=== PATIENT | female | born 1940 | race Caucasian/White ===

== ENCOUNTER → 2017-03-07 | Outpatient (CLI) | payer OTHER ==
[~2017-03-07] MED LIST: ASPEC81 PO; ATOR-22 PO; LISI10TA PO
[2017-03-07 14:09] LABS: BASO % 0.2 %; BASO ABS # 0.02 K/uL (0-0.2); COMPLETE YES; EOS % 0.8 %; HEMATOCRIT 44.6 % (37-47); IG% 0.1 %; LYMPH % 25.7 %; LYMPH ABS # 2.12 K/uL (1.2-3.4); MEAN CORPUSCULAR HEMOGLOBIN 32.7 pg (25-34); MEAN CORPUSCULAR HGB CONC 32.7 g/dl (32-36); MEAN PLATELET VOLUME 10.1 fL (7.4-10.4); MONO % 9.4 %; NEUT % 63.8 %; PLATELET COUNT 241 K/uL (130-400); RED BLOOD COUNT 4.46 M/uL (4.2-5.4); WHITE BLOOD COUNT 8.26 K/uL (4.8-10.8)
[2017-03-07 14:26] LABS: ALT/SGPT 28 U/L (12-78); AST/SGOT 16 U/L (15-37); BLOOD UREA NITROGEN 29 mg/dl (7-18); BUN/CREATININE RATIO 29.4 (10-20); CALCIUM 9.2 mg/dl (8.5-10.1); CARBON DIOXIDE 32 mmol/L (21-32); CHLORIDE 110 mmol/L (98-107); CREATININE 0.97 mg/dl (0.60-1.20); GLUCOSE 99 mg/dl (70-99); POTASSIUM 4.2 mmol/L (3.5-5.1); SODIUM 145 mmol/L (136-145)
[2017-03-07 14:29] LABS: ALB/GLOB RATIO 1.1 (0.9-2); ALKALINE PHOSPHATASE 103 U/L (45-117); CHOLESTEROL 166 mg/dl (0-200); CHOLESTEROL/HDL RATIO 3.1; HDL CHOLESTEROL 54 mg/dl; LDL CHOLESTEROL CALCULATED 74 mg/dl; TRIGLYCERIDES 190 mg/dl (0-150); VERY LOW DENSITY LIPOPROT CALC 38 mg/dl
== END | disposition home or self-care (01) ==
LOC: C.LABMFLN 08:48
PROVIDERS: ATTEND Family Medicine
DX: I10 Essential (primary) hypertension (principal); E78.5 Hyperlipidemia, unspecified

== ENCOUNTER 2023-02-22 05:37 | Observation (INO) ==
--- NOTE | 2023-02-06 12:52 | PAT Medication Instructions ---
Medication Instructions Date of Service February 06, 2023 Home Medications Medication Instructions Recorded acetaminophen 325 mg tablet 650 mg PO QID PRN pain #10 tabs 03/22/21 alendronate 70 mg tablet 70 mg PO .weekly #12 tabs 10/04/21 albuterol sulfate 90 mcg/actuation 2 puff inhalation Q6H PRN 04/12/22 aerosol inhaler (Ventolin HFA) shortness of breath or wheezing #1 inhaler atorvastatin 20 mg tablet 20 mg PO HS #90 tabs 09/25/22 aspirin 81 mg tablet 81 mg PO QPM acetaminophen 325 mg tablet 650 mg PO QID PRN pain alendronate 70 mg tablet 70 mg PO .weekly albuterol sulfate 90 mcg/actuation aerosol inhaler (Ventolin HFA) 2 puff inhalation Q6H PRN shortness of breath or wheezing atorvastatin 20 mg tablet 20 mg PO HS cholecalciferol (vitamin D3) 25 mcg (1,000 unit) capsule 25 mcg PO QAM cyanocobalamin (vitamin B-12) 1,000 mcg tablet,extended release 1,000 mcg PO QAM lisinopril 10 mg tablet 20 mg PO QPM multivitamin (Daily Multi-Vitamin tablet) 1 tab PO QAM umeclidinium 62.5 mcg/actuation blister powder for inhalation (Incruse Ellipta) 1 inh inhalation QPM zinc 50 mg tablet 50 mg PO QAM Continue as directed alendronate 70 mg tablet 70 mg PO .weekly (just do not take morning of surgery) ASK your prescriber and surgeon aspirin 81 mg tablet 81 mg PO QPM DO NOT take the morning of surgery cholecalciferol (vitamin D3) 25 mcg (1,000 unit) capsule 25 mcg PO QAM cyanocobalamin (vitamin B-12) 1,000 mcg tablet,extended release 1,000 mcg PO QAM multivitamin (Daily Multi-Vitamin tablet) 1 tab PO QAM zinc 50 mg tablet 50 mg PO QAM Take morning of surgery With a small sip of water, OTHERWISE NOTHING TO EAT OR DRINK AFTER MIDNIGHT: acetaminophen 325 mg tablet 650 mg PO QID PRN pain (if needed) albuterol sulfate 90 mcg/actuation aerosol inhaler (Ventolin HFA) 2 puff inhalation Q6H PRN shortness of breath or wheezing (use if needed; please bring with you to hospital day of surgery if possible) Take evening before surgery acetaminophen 325 mg tablet 650 mg PO QID PRN pain (if needed) albuterol sulfate 90 mcg/actuation aerosol inhaler (Ventolin HFA) 2 puff inhalation Q6H PRN shortness of breath or wheezing (if needed) atorvastatin 20 mg tablet 20 mg PO HS lisinopril 10 mg tablet 20 mg PO QPM umeclidinium 62.5 mcg/actuation blister powder for inhalation (Incruse Ellipta) 1 inh inhalation QPM Other Notes If you have any questions please call us at [phone] or [phone] or [phone] or [phone]
--- NOTE | 2023-02-08 14:33 | Anesthesiology Consultation ---
Date of Service February 08, 2023 Assessment & Plan (1) Encounter for pre-operative examination: Chart Review Chart Review: Acceptable Risk for Surgery (pending PCP optimization ) and Patient seen in Pre Admission Testing -Discussed with Dr. Cervantes- due to age and comorbidities- would recommend PCP clearance due to procedure. Workload note sent to PCP- awaiting response Per PAT appt on 02/08/23, patient denies any recent travel or large group activities. Pt is vaccinated for Covid. Will leave to surgeon's discretion if preop Covid testing needed. Educated on importance of using Covid precautions one week prior to surgery Last seen by vascular surgery 07/27/22= CTA and duplex correlate and shows stable, small, residual AAA sac. Duplex correlated well with CT. No recurrent ischemic colitis symptoms. Continue aspirin. Continue Lipitor. Follow-up in 1 year with aortic duplex Teaching & Discussion Pre-Anesthesia Teaching/Discussion Notes: Instructed NPO after midnight before surgery,except medications with 15 cc of water. Medication instructions provided according to the PAT guidelines. History Surgery Operation Date: 02/22/23 10:50 Proposed Procedures p Anterior Cervical Decompression Fusion, Instrumentation C3-C4 - Teofilo Salter MD Height/Weight Height: 5 ft 3 in Weight: 72 kg Allergies Allergy/AdvReac Type Severity Reaction Status Date / Time No Known Allergies Allergy Verified 02/06/23 10:16 Medications Home Medications Medication Instructions Recorded Confirmed Last Taken aspirin 81 mg tablet 81 mg PO QPM #30 tabs 04/13/19 02/06/23 Unknown acetaminophen 325 mg tablet 650 mg PO QID PRN pain #10 tabs 03/22/21 02/06/23 Unknown alendronate 70 mg tablet 70 mg PO .weekly #12 tabs 10/04/21 02/06/23 Unknown albuterol sulfate 90 mcg/actuation 2 puff inhalation Q6H PRN 04/12/22 02/06/23 Unknown aerosol inhaler (Ventolin HFA) shortness of breath or wheezing #1 inhaler atorvastatin 20 mg tablet 20 mg PO HS #90 tabs 09/25/22 02/06/23 Unknown cholecalciferol (vitamin D3) 25 25 mcg PO QAM 02/06/23 02/06/23 Unknown mcg (1,000 unit) capsule cyanocobalamin (vitamin B-12) 1,000 mcg PO QAM 02/06/23 02/06/23 Unknown 1,000 mcg tablet,extended release lisinopril 10 mg tablet 20 mg PO QPM 02/06/23 02/06/23 Unknown multivitamin (Daily Multi-Vitamin 1 tab PO QAM 02/06/23 02/06/23 Unknown tablet) umeclidinium 62.5 mcg/actuation 1 inh inhalation QPM 02/06/23 02/06/23 Unknown blister powder for inhalation (Incruse Ellipta) zinc 50 mg tablet 50 mg PO QAM 02/06/23 02/06/23 Unknown Past Medical History Medical History (Updated 02/09/23 @ 12:51 by Trudy Horan PA-C) Abdominal aortic aneurysm (AAA) Hx- s/p repair (2018) CTA abdomen/pelvis 01/31/23- "s/p EVAR of infrarenal AAA and placement of aorto bi-iliac stent which is patent. Excluded aneurysmal sac measures approximately 3.4cm in max diameter which is stable. No evidence of endoleak" Cervical spinal stenosis COPD (chronic obstructive pulmonary disease) Breathing stable H/O chronic ulcerative colitis Occ severe abdominal pain- no current issues [place] (hard of hearing) Hyperlipidemia Hypertension Lumbar canal stenosis Osteoporosis, post-menopausal Exercise / Class Metabolic Activity III < 4 Walking/Shop/Light housework (one flight of stairs - no chest pain, mild SOB ) Past Family History Family History Mother Cerebral aneurysm Other Hypertension No family history of adverse response to anesthesia Denies family history of Ovarian cancer Prostate cancer Myocardial infarction Breast cancer Colorectal cancer Past Surgical History Surgical History History of ankle surgery right History of cervical spinal surgery denies limited ROM History of colonoscopy History of dental surgery S/P breast biopsy right S/P lumbar spine operation Status post percutaneous abdominal aortic aneurysm (AAA) repair Past Anesthesia History No Hx of Anesthesia Complications and No Family Hx of Anesthesia Complications History of PONV No Hx of Motion Sickness and History of PONV STOP BANG Total 2 Social History Smoking Status: Former smoker tobacco type: cigarettes Do You Dip or Chew Tobacco: No Smoking End Date: 2 years ago Hx Alcohol Use: No Hx Substance Use: No substance use type: does not use Review of Systems Chronic wheezing- stable/mild - usually at night secondary to COPD- improved with Incruse inhaler Occ reflex - will try Tums Patient denies chest pain, shortness of breath, dyspnea on exertion, cough, wheezing, palpitations. No hx of seizures, stroke, [place], apnea/snoring. No hx of blood clots or blood transfusions Physical Exam Vital Signs VITALS BP 120/73 P 76 TEMP 98.2 SP02 93% on RA RESP 16 Constitutional no acute distress ENMT Mouth: no TMJ clicking Thyromental Distance: > or= 3.5 Finger Breadths (4.0) Mallampati Class: II Full dentures on top and bottom Neck + limited neck extension Respiratory normal respiratory effort; no respiratory distress Auscultation: lungs clear to auscultation bilaterally; no wheezes Cardiovascular Rate/Rhythm: regular rate and regular rhythm Heart Sounds: no murmur Vessels: no carotid bruit Musculoskeletal Spine: no pain with cervical ROM Extremities: extremities normal to inspection Psychiatric Orientation: alert Lab Results Anesthesia Preop Results Results Anesthesia Widget: WBC 8.66 K/ul (4.8-10.8) 02/08/23 Hgb 14.8 g/dl (12.0-16.0) 02/08/23 Hct 44.1 % (37.0-47.0) 02/08/23 Plt 196 K/uL (130-400) 02/08/23 Na 141 mmol/L (136-145) 02/08/23 K 4.6 mmol/L (3.5-5.1) 02/08/23 Cl 104 mmol/L (98-107) 02/08/23 CO2 27 mmol/L (21-32) 02/08/23 BUN 34 mg/dl (6-23) H 02/08/23 Creat 1.13 mg/dl (0.6-1.2) 02/08/23 Glucose Level 110 mg/dl (70-99(Fasting)) H 02/08/23 PT 11.1 Seconds (9.0-12.0) 02/08/23 PTT 29.2 Seconds (21.0-31.0) 02/08/23 INR 1.0 (0.9-1.1) 02/08/23 Blood Type O Positive 02/08/23 Antibody Screen NEGATIVE 02/08/23 Testing Electrocardiogram Date: 03/31/22 Findings: + NSR @ (76 bpm) Normal EKG per cardio Chest X-Ray Date: 09/01/22 Right basilar subsegmental atelectasis, otherwise no acute cardiopulmonary process Stress Test Date: 03/07/18 Type: DSE Dobutamine stress echocardiographic examination is normal without EKG or echo evidence of inducible ischemia. No chest pain occurred during this test. MPHR 92%. No significant arrhythmias were noted. Normal HR and BP response to dobutamine infusion. No significant ST changes during peak infusion with stress EKG. Borderline concentric LVH. EF 60%. LV wall motion is normal. Grade 1 DD. Mild TR. Other Testing Abdomen/pelvis CTA 01/31/2023 = status post endovascular repair of infrarenal abdominal aortic aneurysm and placement of aorto by iliac stent which is patent. Excluded aneurysmal sac measures approximately 3.4 cm in maximal dimension which is stable. No evidence of endoleak. Stool within the distal small bowel could represent bacterial overgrowth, small bowel dyskinesia, chronic co nstipation, among others. Probable fat-containing left-sided femoral hernia, stable. Moderate coronary arterial calcification, indicating the presence of coronary artery disease. At the patient has associated symptoms recommend management as per chest pain guidelines. If patient is asymptomatic consider reviewing modifiable cardiovascular risk factors and managing as per guidelines for primary prevention. Previous identified colon wall thickening has resolved. Vascular aortic duplex 03/17/2022 = 3.3 cm x 3.3 cm aortic aneurysm sac surrounding an abdominal aortic stent graft. Patent abdominal aortic stent graft and stent graft limbs. No evidence of endoleak by color-flow duplex in the aneurysm sac COVID-19 Risk Screen Screening Information COVID-19 Screen Date: 02/08/23 Exposure 21 Days Family/Household +COVID Last 21 Days: No Exposure 10 Days Any COVID Exposure Last 10 Days: No Symptoms Last 10 Days Experienced COVID Sx Last 10 Days: No + COVID 0-90 Days COVID + in Last 0-90 Days: No Risk Plan COVID Risk Plan: No Risk Identified Patient Education COVID Preop Screening Education Complete: Yes
[2023-02-22] MEDS ORDERED: LR 15ML/HR IV SCH (06:00)
[2023-02-22] MEDS ORDERED: ceFAZolin 2000MG 2,000 MG/15 ML SYR IV SCH (06:00)
[2023-02-22] MEDS ORDERED: LR 60ML/HR IV SCH (06:00)
[2023-02-22] MEDS ORDERED: LIDOCAINE 2% MPF LOCAL 5 ML VIAL ONE (06:42)
[2023-02-22] MEDS ORDERED: ONDANSETRON INJ 2 MG/ML 2 ML VIAL ONE (06:42)
[2023-02-22] MEDS ORDERED: DEXAMETHASONE SOD INJ 4 MG/ML VIAL ONE (06:42)
[2023-02-22] MEDS ORDERED: PROPOFOL IV EMULSION 10 MG/ML 20 ML VIAL IV ONE (06:42)
[2023-02-22] MEDS ORDERED: fentaNYL citrate PF 100 MCG/2 ML VIAL ONE ×2 (06:43→11:33)
[2023-02-22] MEDS ORDERED: MIDAZOLAM HCL 1 MG/ML 2ML VIAL ONE (06:43)
--- NOTE | 2023-02-22 06:58 | History & Physical Bridge Note ---
Date of Service February 22, 2023 History & Physical Bridge Note I have examined the patient, reviewed the History & Physical and in the interval since the performance of the History & Physical I have noted the following changes of clinical significance: no changes noted
[2023-02-22] MEDS ORDERED: VANCOMYCIN HCL 1000MG/20ML VIAL ONE (07:05)
[2023-02-22] MEDS ORDERED: THROMBIN 5000 UNITS KIT ONE (07:05)
[2023-02-22] MEDS ORDERED: GELATIN SPONGE SZ 100 ONE (07:05)
[2023-02-22] MEDS ORDERED: ATROPINE SULFATE 0.1 MG/ML 10ML SYR IV PRN (08:11)
[2023-02-22] MEDS ORDERED: NALOXONE HCL 0.4 MG/1 ML VIAL/CARP IV PRN (08:11)
[2023-02-22] MEDS ORDERED: PROMETHAZINE HCL 12.5 MG in SODIUM CHLORIDE 0.9% 50 ML IV PRN ×2 (08:11→14:40)
[2023-02-22] MEDS ORDERED: ePHEDrine sulfate 50 MG/ML AMP IV PRN (08:11)
[2023-02-22] MEDS ORDERED: LABETALOL HCL IV 5 MG/ML 20ML IV PRN (08:11)
[2023-02-22] MEDS ORDERED: ONDANSETRON INJ 2 MG/ML 2 ML VIAL IV PRN (08:11)
[2023-02-22] MEDS ORDERED: FLUMAZENIL 0.1 MG/1 ML 10 ML VIAL IV PRN (08:11)
[2023-02-22] MEDS ORDERED: ESMOLOL HCL INJ 10 MG/ML 10ML VIAL IV ONE ×2 (10:17→10:52)
[2023-02-22] MEDS ORDERED: SUGAMMADEX SODIUM 200 MG/2 ML VIAL IV ONE (11:16)
--- NOTE | 2023-02-22 11:52 | Post Operative Brief Note ---
PG Immediate Post Op with CF Date of Surgery February 22, 2023 Pre & Post Diagnosis Operation Date: 02/22/23 07:15 Pre-Op Diagnosis: Cervical Spine Stenosis due to Adjacent Segement after fusion procedure Post-Op Diagnosis: Cervical Spine Stenosis due to Adjacent Segement after fusion procedure I identified the patient and participated in the time-out.: Yes Procedure Operation Date: 02/22/23 07:15 Actual Procedures p Anterior Cervical Decompression Fusion, Instrumentation C3-C4(Not Applicable) - Teofilo Salter MD Surgeon Teofilo Salter MD Credit Balance Specialist none Estimated Blood Loss 20 Findings Consistent with Post-Op Diagnosis Specimens Specimen Description: None per surgeon
[2023-02-22] MEDS: fentaNYL citrate PF 100 MCG/2 ML VIAL IV PRN ×5 (12:03→13:45)
[2023-02-22] MEDS ORDERED: PHENYLEPHRINE HCL 10 MG/ML VIAL ONE (12:03)
[2023-02-22] MEDS ORDERED: ePHEDrine sulfate 50 MG/ML SYR ONE (12:03)
[2023-02-22] MEDS ORDERED: ACETAMINOPHEN 1000 MG/100 ML IV IV ONE (12:28)
[2023-02-22] MEDS ORDERED: SODIUM CHLORIDE 0.9% 50 ML BAG ONE (12:43)
[2023-02-22] MEDS ORDERED: PROMETHAZINE HCL INJ 25 MG/ML 1 ML VIAL ONE (12:44)
[2023-02-22] MEDS ORDERED: ROCURONIUM BROMIDE 10 MG/ML 5 ML VIAL IV ONE (13:15)
--- NOTE | 2023-02-22 13:19 | Anesthesiology Progress Note ---
Date of Service February 22, 2023 Anesthesia Post Procedure Vital Signs Vital Signs: Temp Pulse Pulse Resp BP Pulse Ox O2 Del Method 02/22/23 13:15 86 19 133/84 98 Nasal Cannula 02/22/23 13:05 36 C L 98 H 16 154/76 H 98 Nasal Cannula 02/22/23 12:55 94 H 16 162/80 H 97 Nasal Cannula 02/22/23 12:45 95 H 18 155/83 H 97 Nasal Cannula 02/22/23 12:35 95 H 18 157/81 H 96 Nasal Cannula 02/22/23 12:25 93 H 23 137/105 H 96 Nasal Cannula 02/22/23 12:15 94 H 17 159/79 H 95 Nasal Cannula 02/22/23 12:05 96 H 14 140/98 95 Nasal Cannula 02/22/23 11:55 90 18 167/76 H 97 Oxymask 02/22/23 11:46 36 C L 89 19 110/67 92 Oxymask 02/22/23 06:08 Room Air 02/22/23 06:08 36.5 C 67 18 194/67 H 92 Room Air O2 Flow Rate 02/22/23 13:15 4 02/22/23 13:05 4 02/22/23 12:55 4 02/22/23 12:45 4 02/22/23 12:35 4 02/22/23 12:25 4 02/22/23 12:15 4 02/22/23 12:05 4 02/22/23 11:55 11 02/22/23 11:46 11 02/22/23 06:08 02/22/23 06:08 Transfer of Care Handoff Completed per policy Notes Mental Status: alert / awake / arousable Patient Amnestic to Procedure: Yes Nausea / Vomiting: adequately controlled Pain: adequately controlled Airway Patency, RR, SpO2: stable & adequate BP & HR: stable & adequate Hydration State: stable & adequate Anesthetic Complications: no major complications apparent
--- NOTE | 2023-02-22 13:44 | Fluoroscopy Report ---
INTRAOPERATIVE RADIOGRAPHS CLINICAL HISTORY: Cervical spinal fusion. Fluoro time: 81 seconds. Ka,r: 11.14 mGy FINDINGS: 4 spot fluoroscopic views of the cervical spine are presented. There is discectomy change a t C4-C5, C5-C6, and C6-C7. There has likely been corpectomy at C5 and C6. Orthopedic hardware is seen anteriorly extending from C3 to C7. The orthopedic hardware appears intact. IMPRESSION: Intraoperative images from cervical spinal fusion surgery as above. Electronically signed by: Talon Chatterjee M.D. 02/22/2023 1:43 PM
[2023-02-22] MEDS ORDERED: MAGNESIUM HYDROXIDE SUSP 30 ML UDC PO PRN (14:40)
[2023-02-22] MEDS ORDERED: LORazepam 0.5 MG TAB PO PRN (14:40)
[2023-02-22] MEDS ORDERED: ACETAMINOPHEN 1,000 MG/100 ML VIAL IV PRN (14:40)
[2023-02-22] MEDS ORDERED: FAMOTIDINE 20 MG TAB PO PRN (14:40)
[2023-02-22] MEDS ORDERED: RACEPINEPHRINE 2.25% NEBU SOLN 0.5 ML VIAL INH PRN (14:40)
[2023-02-22] MEDS ORDERED: DO NOT ADMINISTER PNEUMOCOCCAL VACCINE PRN (14:40)
[2023-02-22] MEDS ORDERED: dexAMETHasone 8 MG in SYRINGE 0 ML IV PRN (14:40)
[2023-02-22] MEDS ORDERED: LACTATED RINGER'S 1,000 ML IV SCH (14:40)
[2023-02-22] MEDS ORDERED: bisacodyL 10 MG SUPP PR PRN (14:40)
[2023-02-22] MEDS ORDERED: ALUMINUM/MAGNESIUM SUSP 30 ML UDC PO PRN (14:40)
[2023-02-22] MEDS ORDERED: ACETAMINOPHEN 325 MG TAB PO PRN (14:40)
[2023-02-22] MEDS ORDERED: ALBUTEROL HFA 8 GM INHALER INH PRN (14:40)
[2023-02-22] MEDS ORDERED: LORazepam 2 MG/1 ML VIAL IV PRN (14:40)
[2023-02-22] MEDS ORDERED: DO NOT ADMINISTER FLU VACCINE PRN (14:40)
[2023-02-22] MEDS ORDERED: hydrOXYzine HCl 25 MG TAB PO PRN (14:40)
[2023-02-22] MEDS ORDERED: diphenhydrAMINE Capsule 25 MG CAP PO PRN (14:40)
[2023-02-22] MEDS ORDERED: SOD PHOSPHATE/SOD BIPHOSPHATE ENEMA 132 ML BTL PR PRN (14:40)
[2023-02-22] MEDS ORDERED: HYDROmorphone INJ 1 MG/ML SYRINGE IV PRN (15:01)
--- NOTE | 2023-02-22 15:15 | Hospitalist Consultation ---
Date of Consultation February 22, 2023 Assessment & Plan (1) Status post cervical spinal fusion: H/o cervical spine stenosis s/p cervical decompression and fusion 02/22/[address] Salter - Maintain C-collar and activity per primary team - Pain control, DVT ppx per primary team - Recommend incentive spirometer q1h wa for atelectasis/pna prevention (2) COPD (chronic obstructive pulmonary disease): Chronic/stable - Resume Incruse Ellipta and PRN Albuterol inhaler - Currently on 2L nasal cannula, wean as able to keep sat between 88-92% (3) Hypertension: Chronic/stable - Continue Lisinopril 20mg daily (4) Hyperlipidemia: Chronic/stable - Continue Atorvastatin (5) Osteoporosis, post-menopausal: Chronic/stable - Continue Fosamax Plan SCDs placed to b/l LE for DVT ppx. Recommend resumption of ASA 48 hours post operatively unless otherwise directed by primary team. Above plan of care has been d/w Dr. Rodríguez who will also see and evaluate this patient. Further orders as warranted. Supervising Physician Co-Signing Physician Notes Patient seen and examined, chart reviewed, case discussed with Sanjana Arriaga PA-C and I agree with the assessment and plan as above except as otherwise noted Labs and images reviewed 82-year-old female past medical history of ischemic colitis, hypertension, COPD, dyslipidemia, AAA who presented for elective cervical decompression due to spinal stenosis. Doing well postop, remains in collar but with good sensation in her hands and feet. No chest pain, chest pressure. No shortness of breath. No acute concerns at bedside. Vision and hearing are intact. Sensation of soft touch is intact in fingers bilaterally. Radial pulse intact bilaterally. Reviewed with assessment and plan above. History of Present Illness Reason for Consultation: Medical management Requesting Physician: Dr. Salter Attending Physician: Teofilo Salter MD History of Present Illness Maude Powell is an 82 yo F with a pmhx of AAA s/p endovascular repair, ischemic colitis, HTN, COPD, and dyslipidemia who was hospitalized under Dr. Salter service for elective cervical decompression fusion due to cervical spine stenosis that failed conservative measures. Patient reports that she is doing well post operatively. She has mild neck pain at surgical site which she states is "annoying" but not intolerable. She received general anesthesia. She had an uneventful perioperative course without any immediate complications. She lives at home with her son who works but is normally independent with ADLs. She denies chest pain, dyspnea, n/v/d, f/c, headache, or gu symptoms. She denies a h/o PE, DVT, or blood dyscrasias. Hospitalists were asked to see in consult for routine post operative medical management. Allergies Allergy/AdvReac Type Severity Reaction Status Date / Time No Known Allergies Allergy Verified 02/22/23 05:59 Home Medications Medication Instructions Recorded Confirmed Type acetaminophen 325 mg tablet 650 mg PO QID PRN pain #10 tabs 03/22/21 02/22/23 Rx alendronate 70 mg tablet 70 mg PO .weekly #12 tabs 10/04/21 02/22/23 Rx albuterol sulfate 90 mcg/actuation 2 puff inhalation Q6H PRN 04/12/22 02/22/23 Rx aerosol inhaler (Ventolin HFA) shortness of breath or wheezing #1 inhaler atorvastatin 20 mg tablet 20 mg PO HS #90 tabs 09/25/22 02/22/23 Rx cholecalciferol (vitamin D3) 25 25 mcg PO QAM 02/06/23 02/22/23 History mcg (1,000 unit) capsule cyanocobalamin (vitamin B-12) 1,000 mcg PO QAM 02/06/23 02/22/23 History 1,000 mcg tablet,extended release lisinopril 10 mg tablet 20 mg PO QPM 02/06/23 02/22/23 History multivitamin (Daily Multi-Vitamin 1 tab PO QAM 02/06/23 02/22/23 History tablet) umeclidinium 62.5 mcg/actuation 1 inh inhalation QPM 02/06/23 02/22/23 History blister powder for inhalation (Incruse Ellipta) zinc 50 mg tablet 50 mg PO QAM 02/06/23 02/22/23 History oxycodone-acetaminophen 5 mg-325 1 tab PO Q6H PRN pain #20 tabs 02/23/23 Rx mg tablet tizanidine 4 mg tablet 4 mg PO BID PRN muscle spasticity 02/23/23 Rx #20 tabs Patient History Medical History (Updated 02/09/23 @ 12:51 by Trudy J. [place], PA-C) Abdominal aortic aneurysm (AAA) Hx- s/p repair (2018) CTA abdomen/pelvis 01/31/23- "s/p EVAR of infrarenal AAA and placement of aorto bi-iliac stent which is patent. Excluded aneurysmal sac measures approximately 3.4cm in max diameter which is stable. No evidence of endoleak" Cervical spinal stenosis COPD (chronic obstructive pulmonary disease) Breathing stable H/O chronic ulcerative colitis Occ severe abdominal pain- no current issues [place] (hard of hearing) Hyperlipidemia Hypertension Lumbar canal stenosis Osteoporosis, post-menopausal Surgical History (Updated 02/22/23 @ 15:29 by Sanjana Valencia PA-C) History of ankle surgery right History of cervical spinal surgery denies limited ROM History of colonoscopy History of dental surgery S/P breast biopsy right S/P lumbar spine operation Status post percutaneous abdominal aortic aneurysm (AAA) repair Family History Mother Cerebral aneurysm Other Hypertension No family history of adverse response to anesthesia Denies family history of Ovarian cancer Prostate cancer Myocardial infarction Breast cancer Colorectal cancer Social History Smoking Status: Former smoker Age Started Using Tobacco: 17; packs per day: 0.5; Second Hand Exposure: Yes (hx); Hx Alcohol Use: No Hx Substance Use: No Preferred Language: [place] Communication Ability: Effective Visual Impairment: No Limitations Hearing Ability: Normal 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 NAD. NECK: In c-collar LUNGS: Clear to auscultation bilaterally. No W/R/R. CARDIOVASCULAR: Regular rate and rhythm. No M/G/R. No JVD. EXTREMITIES: No edema. Non-tender. Peripheral pulses +2/4. Results & Data Results & Data Vital Signs (Past 12 Hours) Vital Signs Temp Pulse Pulse Pulse Resp BP Pulse Ox 02/22/23 15:00 99 H 18 95 02/22/23 14:40 02/22/23 14:40 02/22/23 14:15 94 H 18 125/77 96 02/22/23 14:00 99 H 14 115/69 95 02/22/23 13:45 100 H 20 137/66 99 02/22/23 13:30 99 H 20 142/75 H 98 02/22/23 13:15 86 19 133/84 98 02/22/23 13:05 36 C L 98 H 16 154/76 H 98 02/22/23 12:55 94 H 16 162/80 H 97 02/22/23 12:45 95 H 18 155/83 H 97 02/22/23 12:35 95 H 18 157/81 H 96 02/22/23 12:25 93 H 23 137/105 H 96 02/22/23 12:15 94 H 17 159/79 H 95 02/22/23 12:05 96 H 14 140/98 95 02/22/23 11:55 90 18 167/76 H 97 02/22/23 11:46 36 C L 89 19 110/67 92 02/22/23 06:08 02/22/23 06:08 36.5 C 67 18 194/67 H 92 Pulse Ox O2 Del Method O2 Del Method O2 Flow Rate O2 Flow Rate 02/22/23 15:00 Nasal Cannula 2 02/22/23 14:40 Nasal Cannula 2 02/22/23 14:40 92 Nasal Cannula 2 02/22/23 14:15 Nasal Cannula 2 02/22/23 14:00 Nasal Cannula 2 02/22/23 13:45 Nasal Cannula 2 02/22/23 13:30 Nasal Cannula 4 02/22/23 13:15 Nasal Cannula 4 02/22/23 13:05 Nasal Cannula 4 02/22/23 12:55 Nasal Cannula 4 02/22/23 12:45 Nasal Cannula 4 02/22/23 12:35 Nasal Cannula 4 02/22/23 12:25 Nasal Cannula 4 02/22/23 12:15 Nasal Cannula 4 02/22/23 12:05 Nasal Cannula 4 02/22/23 11:55 Oxymask 11 02/22/23 11:46 Oxymask 11 02/22/23 06:08 Room Air 02/22/23 06:08 Room Air Laboratory Results Reviewed pre-op labs from 02/08 including cbc, bmp, coags COVID and MRSA negative PG Care Time/CCT Total # of Minutes Spent Total Time Spent with Patient: Total time spent is greater than 50% in coordination of care (as documented) at patient's floor/unit and/or counseling patient: Coding Level of Care Code 27214 IN/OBS CONSULT LVL 4,60M Diagnoses Status post cervical spinal fusion Z98.1 COPD (chronic obstructive pulmonary disease) J44.9 Hypertension I10 Hyperlipidemia E78.5 Osteoporosis, post-menopausal M81.0
[2023-02-22] MEDS: ACETAMINOPHEN 500 MG TAB PO PRN (15:25)
[2023-02-22] MEDS: ceFAZolin 2000MG 2,000 MG/15 ML SYR IV SCH (17:32)
[2023-02-22] MEDS: HYDROmorphone INJ 0.5 MG/0.5 ML SYR IV PRN (20:52)
[2023-02-22] MEDS ORDERED: lisinopril 20 MG TAB PO SCH (21:00)
[2023-02-22] MEDS ORDERED: ATORVASTATIN 20 MG TAB PO SCH (21:00)
[2023-02-22] MEDS ORDERED: UMECLIDINIUM BROMIDE 62.5MCG/BLISTER 7 PUFFS/INHALER INH SCH (21:00)
[2023-02-22] MEDS ORDERED: DOCUSATE SODIUM/SENNA 50/8.6MG TAB PO SCH (21:00)
[2023-02-23] MEDS: ceFAZolin 2000MG 2,000 MG/15 ML SYR IV SCH (01:52)
[2023-02-23] MEDS: ACETAMINOPHEN 500 MG TAB PO PRN ×2 (01:52→11:52)
[2023-02-23] MEDS: HYDROmorphone INJ 0.5 MG/0.5 ML SYR IV PRN (03:05)
[2023-02-23] MEDS: POLYETHYLENE (MIRALAX) 17 GM PACK PO SCH ×2 (05:16→13:06)
--- NOTE | 2023-02-23 09:34 | Operative Report ---
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 C3-4 anterior cervical decompression 2. C3-4 anterior interbody arthrodesis 3. Placement of intervertebral device, NuVasive interlock 2 TI-c 4. Anterior fixation, 15 mm screws 5. Removal of anterior fixation from prior plate C4-C6 Patient was taken the operating room and after adequate anesthesia, was positioned on the OSI flat top table in standard position for anterior approach to the cervical spine. At the patient was secured, preprep was performed along with bringing in fluoroscopy were used this to agnel for the area of the incision followed by prepping and draping. Procedure was started with left-sided approach along the medial border the sternocleidomastoid, from here I carefully dissected down to the anterior aspect of the cervical spine in the region of C3- 4. I was then able to locate the plate, and then mobilized the tissues overlying the plate at the upper portion. The screw fixation areas were cleaned of soft tissue, I also mobilized tissue heading cephalad over C3 for the anticipated decompression procedure. Once the screws were delineated, I used screwdrivers to then remove both fixation screws without any difficulty. With t his completed I then used fluoroscopy to place the distractor pin and C3 followed by a distractor pin placed in one of the screw holes from the prior plate, and then from here began with the decompression procedure. Soft tissue overlying the area of the C3-4 disc space was mobilized, I then used a variety of instruments to begin to elevate the highly degenerated disc space. This process continued to I was able to get this disc space elevated, followed by using trials to continue with the careful mobilization. Eventually I was able to get this up to appropriate height, I then used combination of curettes and pituitaries to continue with the disc removal followed by then the high-speed bur to remove the posterior spondylosis and then decompressed down to the dura across the interspace. When I thought the decompression was completed, I then went through trials selecting a NuVasive interlock to titanium C interbody spacer/cage 7 mm x 17 x 14 mm lordotic. This was placed with demineralized bone matrix placed within the cage, and once this was checked fluoroscopically, I then went on with fixation inserting 315 mm screws 2 heading cephalad and one inferiorly through the anterior aspect of the cage for fixation. All screws had excellent purchase and were tightened down appropriately. Inspection at this time did not reveal any issues with bleeding, the operative site was dry, I placed vancomycin powder followed by then closure using 3-0 Vicryl sutures followed by benzoin and Steri-Strips. Her orthosis collar was placed, the patient was taken recovery room satisfactory condition. Surgeon Teofilo Salter MD Senior Information Systems Architect none Estimated Blood Loss 20 Findings Consistent with Post-Op Diagnosis Specimens None Description of Procedure Listed above I attest to the content of the Intraoperative Record and any orders documented therein. Any exceptions are noted below.
--- NOTE | 2023-02-23 11:19 | Hospitalist Progress Note ---
Date of Service February 23, 2023 Assessment & Plan (1) Status post cervical spinal fusion: Plan: H/o cervical spine stenosis s/p cervical decompression and fusion 02/22/[address] Salter - Maintain C-collar and activity per primary team - Pain control, DVT ppx per primary team - Discussed to continue incentive spirometer q1h wa for atelectasis/pna prevention (2) COPD (chronic obstructive pulmonary disease): Plan: Chronic/stable - Resume Incruse Ellipta and PRN Albuterol inhaler - Currently, 92% on RA (3) Hypertension: Plan: Chronic/stable - Continue Lisinopril 20mg daily (4) Hyperlipidemia: Plan: Chronic/stable - Continue Atorvastatin (5) Osteoporosis, post-menopausal: Plan: Chronic/stable - Continue Fosamax Plan Per patient possibly being discharged later today encouraged up and OOB, increase fluid intake, and good bowel regimine Admission and Anticipated Discharge Date Admission Date: February 22, 2023 Subjective Patient is sitting up in recliner with cervical collar in place. She is currently on RA and saturating in 90s. She is tolerating diet and has no pain, nausea or vomiting. She is passing flatus but no BM Review of Systems Review of Systems: denies any chest pain, SOB, dysopnea, hoarse voice, dysphagia. All othr ROS negative unless stted + above Physical Exam Constitutional: WD/WN, vitals as above Neck: cervical collar in place Respiratory: normal respiratory effort, lungs clear to auscultation Cardiovascular: Rate/Rhythm: regular rate and regular rhythm Extremities: no calf tenderness and no edema Gastrointestinal (Abdomen): normal bowel sounds, soft, nontender, no hepatosplenomegaly Psychiatric: A+Ox3, euthymic affect Results & Data Results & Data Vital Signs (Past 12 Hours) Vital Signs Temp Pulse Pulse Resp BP Pulse Ox O2 Del Method 02/23/23 11:02 36.9 C 82 20 149/77 H 92 Room Air 02/23/23 10:14 81 18 93 Nasal Cannula 02/23/23 09:06 36.3 C L 86 16 161/74 H 93 Room Air 02/23/23 07:13 72 18 94 Nasal Cannula 02/23/23 07:05 37.1 C 70 16 154/72 H 96 Nasal Cannula 02/23/23 05:35 94 Nasal Cannula 02/23/23 05:35 86 L Room Air 02/23/23 05:11 36.6 C 76 16 159/80 H 95 Room Air 02/23/23 02:20 86 16 93 Nasal Cannula 02/23/23 02:54 36.7 C 89 18 166/70 H 95 Nasal Cannula 02/23/23 01:00 36.5 C 84 16 174/77 H 97 Nasal Cannula O2 Flow Rate 02/23/23 11:02 02/23/23 10:14 1.5 02/23/23 09:06 02/23/23 07:13 0.5 02/23/23 07:05 1 02/23/23 05:35 1 02/23/23 05:35 02/23/23 05:11 02/23/23 02:20 2 02/23/23 02:54 2 02/23/23 01:00 2 PG Care Time/CCT Total # of Minutes Spent Total Time Spent with Patient: Total time spent is greater than 50% in coordination of care (as documented) at patient's floor/unit and/or counseling patient: Coding Level of Care Code 72658 SUB INP/OBS CARE 25MIN Diagnoses Status post cervical spinal fusion Z98.1 COPD (chronic obstructive pulmonary disease) J44.9 Hypertension I10 Hyperlipidemia E78.5 Osteoporosis, post-menopausal M81.0
--- NOTE | 2023-02-23 12:10 | Discharge Summary ---
Date of Service February 23, 2023 Principal Diagnosis Same as "Discharge Diagnosis" noted below under Discharge Instructions. Discharge Data Consultations 02/22/23 14:40 Consult Hospitalist Routine Procedures Performed Operation Date: 02/22/23 07:15 Actual Procedures p Anterior Cervical Decompression Fusion, Instrumentation C3-C4(Not Applicable) - Teofilo Salter MD Ordered Studies 02/22/23 FL cervical 2-3V Routine PG Care Time/CCT Total # of Minutes Spent Total Time Spent with Patient: Total time spent is greater than 50% in coordination of care (as documented) at patient's floor/unit and/or counseling patient: Discharge Plan Discharge Items Patient Disposition: Home - Self-Care Reason For Visit: Cervical Spine Stenosis due to Adjacent Segement Discharge Diagnosis: stenosis Condition on Discharge: Good Activity: Per Instructions section Lifting: No more than 5 pounds Bathing: May shower/bathe in 3 days Exercise/Sports: Wait until after follow-up appointment Weightbearing: Full weightbearing Non-emergency contact: Primary Care Provider Call non-emergency contact if: your symptoms worsen and your pain is worsening Follow-up/Referrals: Estelita Leahy MD [Primary Care Provider] - Diet: Regular Diet Texture: Easy to Chew Addtl Attending Provider Instructions: Maintain collars, may remove when needed. avoid antiinflammatory medications. Pending Studies at Discharge: No Stand-Alone Forms: My [facility] [employer], Smoking Cessation Medications and DC Order Prescriptions: New oxycodone-acetaminophen 5-325 mg tablet 1 tab PO Q6H PRN (Reason: pain) Qty: 20 0RF tizanidine 4 mg tablet 4 mg PO BID PRN (Reason: muscle spasticity) Qty: 20 0RF Continued alendronate 70 mg tablet 70 mg PO .weekly Qty: 12 3RF atorvastatin 20 mg tablet 20 mg PO HS Qty: 90 3RF acetaminophen 325 mg tablet 650 mg PO QID PRN (Reason: pain) Qty: 10 0RF albuterol sulfate [Ventolin HFA] 90 mcg/actuation HFA aerosol inhaler 2 puff INH Q6H PRN (Reason: shortness of breath or wheezing) Qty: 1 3RF multivitamin [Daily Multi-Vitamin] tablet 1 tab PO QAM cyanocobalamin (vitamin B-12) 1,000 mcg tablet extended release 1,000 mcg PO QAM lisinopril 10 mg tablet 20 mg PO QPM zinc 50 mg tablet 50 mg PO QAM cholecalciferol (vitamin D3) 25 mcg (1,000 unit) capsule 25 mcg PO QAM Incruse Ellipta 62.5 mcg/actuation blister with device 1 inh inhalation QPM Rx Instructions: replaces spiriva Discontinued aspirin 81 mg tablet 81 mg PO QPM Qty: 30 Discharge Orders: Discharge Order (Routine); Ordered 02/23/23 Ordered By: Teofilo Salter Admission Data Admit Date/Time: 02/22/23 12:16 Attending Provider: Teofilo Salter Admit Provider: Teofilo Salter Primary Care Provider: Estelita Leahy Other Providers: Alessio Burrell ; Melanie Randhawa ; Norberto Tidwell ; Washington Coley ; Brenden Stahl ; Frank Santana ; Talon Sampson ; Luann Cook ; Erin Palumbo ; Jair Tao ; Evin Parmar ; Caryl Otto ; Raulito Farrell ; Nabila Oates ; Alina Lr ; Howard Rossi ; Jamaal Beard ; Estelita Medeiros ; Melanie Villalobos ; Cuco Soler ; Anibal Lyman ; Norberto Khan ; Steffanie Larson ; Ronald Garcia ; Jared Gannon ; Sanjana Valencia ; Emiliano Harden ; Ar Rodríguez ; Eulalia Jin ; Vikas Dixon ; Omer Huerta ; Christian Batista ; Armani Dickens ; Regina Hutson ; Osiris Gates ; Washington Yanes
== END 2023-02-23 14:10 | disposition home or self-care (01) ==
LOC: ASU 05:37 → 3E 05:37

== ENCOUNTER 2024-04-15 09:22 | Observation (INO) ==
--- NOTE | 2024-03-19 15:50 | PAT Medication Instructions ---
Medication Instructions Date of Service March 19, 2024 Home Medications Medication Instructions Recorded acetaminophen 325 mg tablet 650 mg (2 x 325 mg) PO QID PRN 03/22/21 pain #10 tabs albuterol sulfate 90 mcg/actuation 2 puff inhalation Q6H PRN 04/12/22 aerosol inhaler (Ventolin HFA) shortness of breath or wheezing #1 inhaler cetirizine 10 mg capsule (Zyrtec) 10 mg PO DAILY PRN allergy 05/15/23 symptoms #30 caps atorvastatin 20 mg tablet 20 mg PO HS #90 tabs 09/25/23 gabapentin 300 mg capsule 300 mg PO DAILY #30 caps 12/11/23 levothyroxine 125 mcg tablet 125 mcg PO DAILY #30 tabs 01/02/24 gabapentin 100 mg capsule 100 mg PO .qhs #30 caps 01/18/24 lisinopril 10 mg tablet 20 mg (2 x 10 mg) PO QPM #180 tabs 03/07/24 umeclidinium 62.5 mcg/actuation 1 inh inhalation QPM #30 ea 03/11/24 blister powder for inhalation (Incruse Ellipta) acetaminophen 325 mg tablet 650 mg (2 x 325 mg) PO QID PRN albuterol sulfate 90 mcg/actuation aerosol inhaler (Ventolin HFA) 2 puff inhalation Q6H PRN cholecalciferol (vitamin D3) 25 mcg (1,000 unit) capsule 25 mcg PO QAM cyanocobalamin (vitamin B-12) 1,000 mcg tablet,extended release 1,000 mcg PO QAM multivitamin (Daily Multi-Vitamin tablet) 1 tab PO QAM zinc 50 mg tablet 50 mg PO QAM cetirizine 10 mg capsule (Zyrtec) 10 mg PO DAILY PRN atorvastatin 20 mg tablet 20 mg PO HS gabapentin 300 mg capsule 300 mg PO DAILY levothyroxine 125 mcg tablet 125 mcg PO DAILY gabapentin 100 mg capsule 100 mg PO QHS lisinopril 10 mg tablet 20 mg (2 x 10 mg) PO QPM umeclidinium 62.5 mcg/actuation blister powder for inhalation (Incruse Ellipta) 1 inh inhalation QPM Continue as directed gabapentin 300 mg capsule 300 mg PO DAILY levothyroxine 125 mcg tablet 125 mcg PO DAILY DO NOT take the morning of surgery cholecalciferol (vitamin D3) 25 mcg (1,000 unit) capsule 25 mcg PO QAM cyanocobalamin (vitamin B-12) 1,000 mcg tablet,extended release 1,000 mcg PO QAM multivitamin (Daily Multi-Vitamin tablet) 1 tab PO QAM zinc 50 mg tablet 50 mg PO QAM cetirizine 10 mg capsule (Zyrtec) 10 mg PO DAILY PRN Take morning of surgery With a small sip of water, OTHERWISE NOTHING TO EAT OR DRINK AFTER MIDNIGHT: acetaminophen 325 mg tablet 650 mg (2 x 325 mg) PO QID PRN(if needed) albuterol sulfate 90 mcg/actuation aerosol inhaler (Ventolin HFA) 2 puff inhalation Q6H PRN(use if needed; please bring with you to hospital day of surgery if possible) Take evening before surgery acetaminophen 325 mg tablet 650 mg (2 x 325 mg) PO QID PRN(if needed) albuterol sulfate 90 mcg/actuation aerosol inhaler (Ventolin HFA) 2 puff inhalation Q6H PRN(if needed) atorvastatin 20 mg tablet 20 mg PO HS gabapentin 100 mg capsule 100 mg PO QHS lisinopril 10 mg tablet 20 mg (2 x 10 mg) PO QPM umeclidinium 62.5 mcg/actuation blister powder for inhalation (Incruse Ellipta) 1 inh inhalation QPM Other Notes If you have any questions please call us at [phone] or [phone] or [phone] or [phone]
--- NOTE | 2024-03-21 13:54 | Anesthesiology Consultation ---
Date of Service March 21, 2024 Assessment & Plan (1) Encounter for pre-operative examination: Chart Review Chart Review: Acceptable Risk for Surgery and Patient seen in Pre Admission Testing Scheduled for right CTR 03/26/24 (surgeon's office informed- will leave to Dr. Ashley's discretion if patient can proceed) - Patient is NOT an OPJ candidate (currently 23 hour obs) Per PAT appt on 03/21/24, no recent illness/disease exposures, illness related symptoms, or recent illness/disease positive tests. Will leave to surgeon's discretion if preop Covid testing needed Patient last seen by vascular surgery 03/07/24= seen for follow up - surveillance of 2017 EVAR for AAA. No descending TAA, per 2023 CT. No fem/pop aneurysms, per 2019 duplex. Bilateral <50% carotid artery stenosis, per 02/2017 duplex. Stable, small, residual AAA sac. Continue daily 81 mg aspirin for AAA. Continue 20 mg Lipitor for dyslipidemia. RTC in [address] Meyer at [place] with aortic duplex completed a week prior. Anterior Cervical Discectomy and Fusion C3-4 on 02/22/23= Done under [facility] with Grade 1 view with Glidescope #3. ETT #7. Atraumatic VL x 1 Teaching & Discussion Pre-Anesthesia Teaching/Discussion Notes: Instructed NPO after midnight before surgery,except medications with 15 cc of water. Medication instructions provided according to the PAT guidelines. History Surgery Operation Date: 04/15/24 12:00 Proposed Procedures p Right Reverse Total Shoulder Arthroplasty - Venkat Ashley, Height/Weight Height: 5 ft 3 in Weight: 70.8 kg Allergies Allergy/AdvReac Type Severity Reaction Status Date / Time No Known Allergies Allergy Verified 03/19/24 14:09 Medications Home Medications Medication Instructions Recorded Confirmed Last Taken acetaminophen 325 mg tablet 650 mg (2 x 325 mg) PO QID PRN 03/22/21 03/19/24 02/21/23 21:00 pain #10 tabs albuterol sulfate 90 mcg/actuation 2 puff inhalation Q6H PRN 04/12/22 03/19/24 Unknown aerosol inhaler (Ventolin HFA) shortness of breath or wheezing #1 inhaler cholecalciferol (vitamin D3) 25 25 mcg PO QAM 02/06/23 03/19/24 02/21/23 12:00 mcg (1,000 unit) capsule cyanocobalamin (vitamin B-12) 1,000 mcg PO QAM 02/06/23 03/19/24 02/21/23 12:00 1,000 mcg tablet,extended release multivitamin (Daily Multi-Vitamin 1 tab PO QAM 02/06/23 03/19/24 02/21/23 12:00 tablet) zinc 50 mg tablet 50 mg PO QAM 02/06/23 03/19/24 02/21/23 12:00 cetirizine 10 mg capsule (Zyrtec) 10 mg PO DAILY PRN allergy 05/15/23 03/19/24 Unknown symptoms #30 caps atorvastatin 20 mg tablet 20 mg PO HS #90 tabs 09/25/23 03/19/24 Unknown gabapentin 300 mg capsule 300 mg PO DAILY #30 caps 12/11/23 03/19/24 Unknown levothyroxine 125 mcg tablet 125 mcg PO DAILY #30 tabs 01/02/24 03/19/24 Unknown gabapentin 100 mg capsule 100 mg PO .qhs #30 caps 01/18/24 03/19/24 Unknown lisinopril 10 mg tablet 20 mg (2 x 10 mg) PO QPM #180 tabs 03/07/24 03/19/24 Unknown umeclidinium 62.5 mcg/actuation 1 inh inhalation QPM #30 ea 03/11/24 03/19/24 Unknown blister powder for inhalation (Incruse Ellipta) Past Medical History Medical History Abdominal aortic aneurysm (AAA) S/p EVAR with [employer] Endurant stent graft by 03/30/18 Follows with vascular surgery [facility] Carotid stenosis, bilateral Follows with [facility] vascular surgery- 2016 duplex showed <50% stenosis to bilateral ICAs Cervical spinal stenosis COPD (chronic obstructive pulmonary disease) Breathing stable H/O chronic ulcerative colitis Occ severe abdominal pain- no current issues CIRCLE (hard of hearing) No hearing aids Hyperlipidemia Hypertension Lumbar canal stenosis Osteoporosis, post-menopausal SOBOE (shortness of breath on exertion) Thyroid carcinoma 08/2023, s/p thyroidectomy - no chemo or XRT Exercise / Class Metabolic Activity II 4-5 Yardwork/Stairs/Walk up hill (no chest pain or SOB with flat surface, short distances ambulation- uses cane ambulation ) Past Family History Family History Mother Cerebral aneurysm Other Hypertension No family history of adverse response to anesthesia Denies family history of Ovarian cancer Prostate cancer Myocardial infarction Breast cancer Colorectal cancer Past Surgical History Surgical History History of ankle surgery right History of colonoscopy History of dental surgery Hx of thyroidectomy [facility] ~12/2023 S/P breast biopsy right S/P cervical disc replacement S/P lumbar spine operation Status post cervical spinal fusion Status post percutaneous abdominal aortic aneurysm (AAA) repair Past Anesthesia History No Hx of Anesthesia Complications and No Family Hx of Anesthesia Complications History of PONV No Hx of PONV and No Hx of Motion Sickness Social History Smoking Status: Former smoker tobacco type: cigarettes Do You Dip or Chew Tobacco: No Smoking End Date: quit 2021 Hx Alcohol Use: No Hx Substance Use: No substance use type: does not use Review of Systems - Cough - chronic/intermittent stable. - Occ reflux- mild and diet dependent Patient denies chest pain, shortness of breath at rest, cough, wheezing, palpitations. No hx of seizures, stroke, CO, apnea/snoring. No hx of blood clots or blood transfusions Physical Exam Vital Signs VITALS BP 148/85 P 78 TEMP 97.7 SP02 93% RESP 16 Constitutional no acute distress ENMT Mouth: no TMJ clicking Thyromental Distance: > or= 3.5 Finger Breadths (3.5) Mallampati Class: II Full dentures on top and bottom Neck + limited neck extension (mild) Respiratory normal respiratory effort; no respiratory distress Auscultation: lungs clear to auscultation bilaterally; no wheezes Cardiovascular Rate/Rhythm: regular rate and regular rhythm Heart Sounds: no murmur Vessels: no carotid bruit Occ extra beat Musculoskeletal Spine: no pain with cervical ROM Extremities: extremities normal to inspection Psychiatric Orientation: alert Lab Results Anesthesia Preop Results Results Anesthesia Widget: WBC 8.28 K/ul (4.8-10.8) 03/21/24 Hgb 15.5 g/dl (12.0-16.0) 03/21/24 Hct 46.8 % (37.0-47.0) 03/21/24 Plt 183 K/uL (130-400) 03/21/24 Na 142 mmol/L (136-145) 03/21/24 K 4.8 mmol/L (3.5-5.1) 03/21/24 Cl 106 mmol/L (98-107) 03/21/24 CO2 29 mmol/L (21-32) 03/21/24 BUN 23 mg/dl (6-23) 03/21/24 Creat 0.98 mg/dl (0.6-1.2) 03/21/24 Glucose Level 98 mg/dl (70-99(Fasting)) 03/21/24 PT 10.9 Seconds (9.0-12.0) 03/21/24 PTT 30 Seconds (21-31) 03/21/24 INR 1.0 (0.9-1.1) 03/21/24 Blood Type O Positive 03/21/24 Antibody Screen NEGATIVE 03/21/24 Testing Electrocardiogram Date: 03/21/24 SR at 63bpm Premature atrial complexes Otherwise normal EKG per cardio Chest X-Ray Date: 03/21/24 FINDINGS: PA and lateral chest radiographs are compared to study dated 05/02/2012. The cardiomediastinal silhouette is top normal for projection noting atherosclerotic calcification of the thoracic aorta. Emphysema and chronic interstitial thickening is similar to previous. There is bibasilar scarring/atelectasis. No airspace consolidation or pleural effusion is identified. There is no pneumothorax. The skeletal structures are osteopenic. The bony thorax appears intact. Fusion hardware is noted in the lower cervical spine. Arthritic change is seen in the shoulders. Numerous calcified joint bodies are noted on the right. A stent graft is seen in the upper abdomen. IMPRESSION: Emphysematous change with no active disease in the chest. Stress Test Date: 03/07/18 Type: DSE Dobutamine stress echocardiographic examination is normal without EKG or echo evidence of inducible ischemia. No chest pain occurred during this test. MPHR 92%. No significant arrhythmias were noted. Normal HR and BP response to dobutamine infusion. No significant ST changes during peak infusion with stress EKG. Borderline concentric LVH. EF 60%. LV wall motion is normal. Grade 1 DD. Mild TR. Other Testing Vascular aortic duplex 02/27/24 = 3.4 cm by 3.4 cm aortic aneurysm sac surrounding an abdominal aortic stent graft. Patent abdominal aortic stent graft and stent graft limbs. No evidence of endoleak by color flow duplex in the aneurysm sac.
[~2024-04-15 09:22] MED LIST changes: -ASPEC81 PO; -ATOR-22 PO; +BUPIVACAINE 0.5 % 5 MG/1 ML PF 10ML VIAL ONE; -LISI10TA PO
--- NOTE | 2024-04-15 09:43 | History & Physical Bridge Note ---
Date of Service April 15, 2024 History & Physical Bridge Note I have examined the patient, reviewed the History & Physical and in the interval since the performance of the History & Physical I have noted the following changes of clinical significance: no changes noted
[2024-04-15] MEDS ORDERED: MIDAZOLAM HCL 1 MG/ML 2ML VIAL ONE (09:45)
[2024-04-15] MEDS ORDERED: PROPOFOL IV EMULSION 10 MG/ML 20 ML VIAL IV ONE (09:45)
[2024-04-15] MEDS ORDERED: fentaNYL citrate PF 100 MCG/2 ML VIAL ONE (09:45)
[2024-04-15] MEDS ORDERED: fentaNYL citrate PF 100 MCG/2 ML VIAL IV PRN (09:52)
[2024-04-15] MEDS ORDERED: ATROPINE SULFATE 0.1 MG/ML 10ML SYR IV PRN (09:52)
[2024-04-15] MEDS ORDERED: ePHEDrine sulfate 50 MG/ML AMP IV PRN (09:52)
[2024-04-15] MEDS ORDERED: ONDANSETRON INJ 2 MG/ML 2 ML VIAL IV PRN ×2 (09:52→12:05)
[2024-04-15] MEDS: ACETAMINOPHEN 500 MG TAB PO SCH ×2 (10:06→14:29)
[2024-04-15] MEDS: FAMOTIDINE 20 MG TAB PO SCH (10:06)
[2024-04-15] MEDS: GABAPENTIN 300 MG CAP PO SCH (10:06)
[2024-04-15] MEDS: LR 15ML/HR IV SCH (10:09)
[2024-04-15] MEDS: LR 60ML/HR IV SCH (10:09)
[2024-04-15] MEDS: dexAMETHasone**PF** 10 MG/ML VIAL IV SCH (10:14)
[2024-04-15] MEDS: TRANEXAMIC ACID 1,000 MG **IV Pre-op IV SCH (10:32)
[2024-04-15] MEDS: ceFAZolin 2000MG 2,000 MG/15 ML SYR IV SCH ×2 (10:43→18:01)
[2024-04-15] MEDS ORDERED: ONDANSETRON INJ 2 MG/ML 2 ML VIAL ONE (11:28)
[2024-04-15] MEDS ORDERED: PHENYLEPHRINE 100MCG/ML 10ML SYR IV ONE (11:28)
[2024-04-15] MEDS ORDERED: ePHEDrine sulfate 50 MG/5 ML SYR ONE (11:28)
[2024-04-15] MEDS: ROPIV 0.5% 246mg, Ketorolac 30mg, EPINEPHrine 0.5mg in NSS INFIL SCH (11:36)
[2024-04-15] MEDS: TRANEXAMIC ACID 1,000 MG **IV Intra-op IV SCH (11:45)
--- NOTE | 2024-04-15 11:46 | Operative Report ---
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 A tenodesis was opted. This was a separate and distinct portion of the procedure. For these reasons, a CPT code modifier 59 will be added to this case. Implants used: I used a [employer] Comprehensive reverse total shoulder arthroplasty system with a size 10 press fit micro humeral stem, a +6 offset humeral tray and a +3 retentive humeral bearing, a 25 mm baseplate with a 6.5 mm central screw and superior and inferior locking screws, and a size 36 mm eccentric glenosphere. Maude arrived at [facility] for the above procedure. She was seen in the preoperative holding area and the operative extremity was identified and signed. She was given a preoperative antibiotic, TXA, and an interscalene nerve block. She was taken back to the operating room, laid on table in supine position, and put under general anesthesia. She was then put into the beachchair position. The shoulder was then prepped and draped in sterile fashion. A timeout was done and the patient and the operative extremity was properly identified. A deltopectoral approach was used. Dissection was taken down through the fascia and the deltoid was retracted laterally and the conjoined tendon was retracted medially. The anterior shoulder was exposed. The biceps groove was opened up and the biceps tendon was examined extensively. The biceps tendon demonstrated enlargement and inflammatory changes consistent with longstanding inflammation in the context of osteoarthritis and cuff arthropathy. The long head of the biceps tendon was then tenodesed to the upper border of the pectoralis major. This was a separate and distinct portion of the procedure. The subscapularis was then directly released off the lesser tuberosity with a peel technique. The inferior capsule was released and the humeral head was dislocated. A canal finding reamer was sent down the center of the humeral canal. Sequential reaming up to a size 10 reamer was done. Off that reamer, a proximal humeral resection guide was placed. The proximal humerus was resected at 135 of inclination and 25 of retroversion. Osteophytes were then removed and the glenoid was exposed. Time was spent doing a complete capsular and labral release. The glenoid guide was then placed in the inferior aspect of the glenoid. A 3.2 mm Steinmann pin was then placed into the glenoid vault at 10 of inclination. The glenoid baseplate was then reamed. The final size 25 mm baseplate was then impacted in the place. A 6.5 mm central screw was then placed followed by superior and inferior locking screws. A 36 mm eccentric glenosphere was then impacted into place. Surrounding soft tissues were then injected with 100 cc an orthopedic pain control cocktail. The proximal humerus was then exposed. Sequential broaching of the humerus up to a size 10 broach was done. Off that broach a +6 offset and +3 retentive humeral tray was trialed. The shoulder was then reduced, brought through a full range of motion, and felt to be stable. The shoulder was then dislocated and the broach was removed. The final size 10 micro press-fit humeral stem was then impacted into place. A +3 retentive humeral bearing was then snapped onto a +6 offset humeral tray. The humeral tray was then impacted onto the humeral stem. The shoulder was once again reduced, brought through a full range of motion, and felt to be stable. Subscapularis was poor quality and unable to be repaired. A dilute betadyne lavage was then done for 3 minutes. The joint was then irrigated with normal saline solution. Hemostasis was obtained. The interval was closed with 2-0 Vicryl suture. The skin was then closed with 2-0 Vicryl and sury. A Silverlon dressing was placed and the arm was rested in a regular arm sling. She was then extubated and transferred to a hospital bed. She taken to the postanesthesia care unit in stable condition. She tolerated the procedure well. Venkat Castellano PA-C, was present for the entire procedure. He was critical for patient positioning, prepping, draping, retraction exposure, wound closure and application of sterile dressing. I attest to the content of the Intraoperative Record and any orders documented therein. Any exceptions are noted below.
[2024-04-15] MEDS ORDERED: MAGNESIUM HYDROXIDE SUSP 30 ML UDC PO PRN (12:05)
[2024-04-15] MEDS ORDERED: METOCLOPRAMIDE HCL INJ 5 MG/ML 2 ML VIAL IV PRN (12:05)
[2024-04-15] MEDS ORDERED: HYDROmorphone INJ 0.5 MG/0.5 ML SYR IV PRN (12:05)
[2024-04-15] MEDS ORDERED: oxyCODONE HCL IR 5 MG TAB (IMMEDIATE RELEASE) PO PRN (12:05)
[2024-04-15] MEDS ORDERED: NALOXONE HCL 0.4 MG/1 ML VIAL/CARP IV PRN (12:05)
[2024-04-15] MEDS ORDERED: bisacodyL 10 MG SUPP PR PRN (12:05)
--- NOTE | 2024-04-15 12:56 | XRay Report ---
XR shoulder RT min 2V routine CLINICAL HISTORY: Post shoulder surgery TECHNIQUE: 3 views of the right shoulder were obtained. Comparison: None available at the time of this dictation. FINDINGS: Patient is status post shoulder arthroplasty with expected postsurgical changes including soft tissue swelling and subcutaneous emphysema. No periarticular lucency or hardware fracture is seen. IMPRESSION: Expected postoperative appearance status post placement of shoulder arthroplasty. ACT 112: Negative or not required by law. Electronically signed by: Rivas Burgess M.D. 04/15/2024 12:55 PM
[2024-04-15] MEDS: ALBUT/IPRATROP 3MG/0.5MG NEB 3 ML VIAL ONE (14:02)
[2024-04-15] MEDS: ALBUT/IPRATROP 3MG/0.5MG NEB 3 ML VIAL NEB STA (14:02)
[2024-04-15] MEDS ORDERED: CETIRIZINE HCL 10 MG TABLET PO PRN (14:09)
[2024-04-15] MEDS ORDERED: ALBUTEROL HFA 8 GM INHALER INH PRN (14:09)
[2024-04-15] MEDS: ORTHO JOINT ANESTHETIC ONE (14:27)
[2024-04-15] MEDS: SODIUM CHLORIDE 0.9% 1,000 ML IV SCH (14:31)
--- NOTE | 2024-04-15 14:48 | Anesthesiology Progress Note ---
Date of Service April 15, 2024 Anesthesia Post Procedure Vital Signs Vital Signs: Temp Pulse Pulse Resp BP BP Pulse Ox 04/15/24 14:42 36.4 C L 98 H 18 149/77 H 91 04/15/24 13:50 35.7 C L 83 16 142/70 H 93 04/15/24 13:35 36.4 C L 90 16 135/73 92 04/15/24 13:00 80 18 143/63 H 93 04/15/24 12:50 36.3 C L 84 18 155/69 H 93 04/15/24 12:40 83 18 151/64 H 93 04/15/24 12:30 93 H 22 153/70 H 93 04/15/24 12:20 86 18 155/69 H 95 04/15/24 12:10 92 H 22 153/61 H 93 04/15/24 12:03 36 C L 92 H 18 152/74 H 96 04/15/24 09:55 36.6 C 74 21 215/84 H 93 O2 Del Method O2 Flow Rate 04/15/24 14:42 Nasal Cannula 2 04/15/24 13:50 Nasal Cannula 3 04/15/24 13:35 Nasal Cannula 3 04/15/24 13:00 Nasal Cannula 2 04/15/24 12:50 Nasal Cannula 2 04/15/24 12:40 Nasal Cannula 2 04/15/24 12:30 Nasal Cannula 2 04/15/24 12:20 Oxymask 3 04/15/24 12:10 Oxymask 3 04/15/24 12:03 Oxymask 6 04/15/24 09:55 Room Air Transfer of Care Handoff Completed per policy Notes Mental Status: alert / awake / arousable and participated in evaluation Patient Amnestic to Procedure: Yes Nausea / Vomiting: adequately controlled Pain: adequately controlled Airway Patency, RR, SpO2: stable & adequate BP & HR: stable & adequate Hydration State: stable & adequate Anesthetic Complications: no major complications apparent and Pt Satisfied with anesthetic care Notes: Patient when transferred to floor had SpO2s in mid 80's. Per nursing report, had issues with supplemental oxygen equipment when arrival to floor. With ISB and coughs, was weaned back down to NC oxygen. I also wrote for a duoneb to be given on floor. Patient responded well to this therapy as nurse stated she was in mid 90's during treatment. I had already discussed with patient and son earlier today about her needing extra oxygen overnight given her hx/o COPD and now with interscalene nerve block and phrenic nerve block in the ipsilateral side. Also told them I would put her on continuous pulse oximetry, which was ordered.
[2024-04-15] MEDS: UMECLIDINIUM BROMIDE 62.5MCG/BLISTER 7 PUFFS/INHALER INH SCH (21:45)
[2024-04-15] MEDS: lisinopril 20 MG TAB PO SCH (21:47)
[2024-04-15] MEDS: SENNA 8.6 MG TAB PO SCH (21:47)
[2024-04-15] MEDS: DOCUSATE SODIUM 100 MG CAP PO SCH (21:48)
[2024-04-15] MEDS: ATORVASTATIN 20 MG TAB PO SCH (21:48)
[2024-04-16] MEDS: LEVOTHYROXINE SODIUM 125 MCG TABLET PO SCH (05:00)
[2024-04-16] MEDS: dexAMETHasone 4 MG TAB PO SCH (08:02)
[2024-04-16] MEDS: MULTIVITAMIN TAB PO SCH (08:02)
--- NOTE | 2024-04-16 11:28 | Orthopedic Progress Note ---
Date of Service April 16, 2024 Assessment & Plan (1) Osteoarthritis of right shoulder: (2) Status post reverse total replacement of right shoulder: Plan 84-year-old woman POD# 1 s/p right reverse total shoulder replacement, doing well overall. Currently, no pain. Medically stable. Postoperative radiographs are well-appearing; hardware intact and well-positioned. She is neurologically intact. Plan: 1. DVT prophylaxis w/ SCDs, early ambulation. Encourage elbow, wrist, digit AROM. 2. PT/OT as tolerated. Sling on at all times, including while sleeping, but may come off to shower and dress. Follow postop instructions. 3. Pain control doing well with current pain regimen. 4. Disposition - patient wishes/prefers IRF (location near [place], [place]), pending PT/OT recommendation. 5. F/u 2-3 weeks post-op w/ orthopedics (Dr. Ashley's team), or as previously scheduled, for first post-op visit. Admission and Anticipated Discharge Date Admission Date: April 15, 2024 Subjective Patient is POD# 1 s/p right reverse total shoulder arthroplasty by Dr. Nihcole on 04/15/2024. Patient says her pain is well-controlled this morning; she actually denies pain at this time. She is having some numbness in the distal right upper extremity. Denies CP, SOB, N/V. She is attempting to go to an inpatient rehab facility, as she has no help at home. Physical Exam Physical Exam: GENERAL: AA&Ox3, NAD. Pleasant, affect is calm. Sitting in bed with sling donned to RUE, well-fitting. Appears comfortable. RESPIRATORY: Normal respiratory effort with no signs of distress. CHEST/AXILLA: Chest movement symmetrical. No deformities noted. CARDIOVASCULAR: No edema noted. SKIN: Friend, warm and dry. MS/EXTREMITY: Shoulder Silverlon dressing c/d/i. + wrist/elbow AROM. Median/Ulnar/Radial nerve distributions intact to sensory/motor. Radial pulse in tact, 2+. Results & Data Vital Signs (Past 12 Hours) Vital Signs Temp Pulse Resp BP Pulse Ox O2 Del Method O2 Flow Rate 04/16/24 11:13 36.9 C 71 16 159/66 H 94 Nasal Cannula 4 04/16/24 08:00 Nasal Cannula 4 04/16/24 07:25 36.4 C L 76 16 148/71 H Nasal Cannula 4 04/16/24 03:00 36.5 C 76 18 120/69 94 Nasal Cannula 4 Diagnostic Findings Shoulder X-Ray 04/15/24 12:05 XR shoulder RT min 2V routine CLINICAL HISTORY: Post shoulder surgery TECHNIQUE: 3 views of the right shoulder were obtained. Comparison: None available at the time of this dictation. FINDINGS: Patient is status post shoulder arthroplasty with expected postsurgical changes including soft tissue swelling and subcutaneous emphysema. No periarticular lucency or hardware fracture is seen. IMPRESSION: Expected postoperative appearance status post placement of shoulder arthroplasty. ACT 112: Negative or not required by law. Electronically signed by: Rivas Burgess M.D. 04/15/2024 12:55 PM
--- NOTE | 2024-04-16 21:32 | Hospitalist Consultation ---
Date of Consultation April 16, 2024 Assessment & Plan (1) Acute respiratory failure with hypoxia: Known history of COPD. On LAMA therapy outpatient. Does follow with pulmonology. Patient reports progressive dyspnea on exertion. May benefit from ICS initiation. Is not on home O2. Is on 4L satting 88-93. Would recommend ambulatory pulse ox prior to discharge to rehab as patient likely with progressive COPD and baseline oxygen requirement. ambulatory pulse ox continue home LAMA outpatient f/u with pulm (2) Erythema: Exam consistent with superficial phlebitis. Doppler to r/o VTE. Warm/cool compresses as needed. Likely self limiting process. f/u doppler compresses as needed (3) Status post reverse total replacement of right shoulder: POD-1. To f/u with Dr. Ashley's team outpatient. Continue current management per primary team. (4) Osteoarthritis of right shoulder: See above (5) COPD (chronic obstructive pulmonary disease): See above (6) Thrombophlebitis/phlebitis, superficial: Supervising Physician Co-Signing Physician Notes Patient seen and examined, chart reviewed, case discussed with Dr. Brown and I agree with the assessment and plan as above. Patient is s/p right reverse total shoulder arthroplasty performed by Dr. Ashley on 04/15/24. She had an IV in place - developed redness and streaking. IV was removed. No infiltration. Patient reports that her arm is overall improving. On exam - patient is resting comfortably - she is on supplemental O2 at 4L/min with continuous pulse oximetry at bedside - variable waveform, saturations seem to be 93-94% Skin - redness to LUE which extends into the axilla, no tenderness, no crepitus/bullae or induration HEENT - MMM, Neck supple Heart - +S1/S2, regular Lungs- CTA Abd - +BS, soft, NT/ND Ext - RUE in sling, NV intact Labs and images reviewed Assessment/plan LUE redness appears to be superficial thrombophlebitis, possible reaction from prior infusion. No DVT identified. Symptoms are improving -Continue supportive care Hypoxia - patient requiring supplemental O2. Does not wear oxygen at home -Check CXR -Monitor - check 2 step Remainder as above History of Present Illness Reason for Consultation: left arm streaking Requesting Physician: Frank Christensen PA-C Attending Physician: Venkat Ashley DO History of Present Illness 84 y/o female admitted for right shoulder replacement with Dr. Ashley 04/15. Now POD1 and doing well. Hospitalist service consulted for evaluation of left arm streaking. Patient seen at bedside. Describes area as feeling like a "brush burn" no pain, fevers, warmth, CP, or SOB, nausea, abdominal pain, etc. Patient is on 4L NC presently. Is not on O2 at home but does have COPD and progressive dyspnea on exertion over the last few months. Allergies Allergy/AdvReac Type Severity Reaction Status Date / Time No Known Allergies Allergy Verified 03/19/24 14:09 Home Medications Medication Instructions Recorded Confirmed Type acetaminophen 325 mg tablet 650 mg (2 x 325 mg) PO QID PRN 03/22/21 04/15/24 Rx pain #10 tabs albuterol sulfate 90 mcg/actuation 2 puff inhalation Q6H PRN 04/12/22 04/15/24 Rx aerosol inhaler (Ventolin HFA) shortness of breath or wheezing #1 inhaler cholecalciferol (vitamin D3) 25 25 mcg PO QAM 02/06/23 04/15/24 History mcg (1,000 unit) capsule cyanocobalamin (vitamin B-12) 1,000 mcg PO QAM 02/06/23 04/15/24 History 1,000 mcg tablet,extended release multivitamin (Daily Multi-Vitamin 1 tab PO QAM 02/06/23 04/15/24 History tablet) cetirizine 10 mg capsule (Zyrtec) 10 mg PO DAILY PRN allergy 05/15/23 04/15/24 Rx symptoms #30 caps atorvastatin 20 mg tablet 20 mg PO HS #90 tabs 09/25/23 04/15/24 Rx levothyroxine 125 mcg tablet 125 mcg PO DAILY #30 tabs 01/02/24 04/15/24 Rx lisinopril 10 mg tablet 20 mg (2 x 10 mg) PO QPM #180 tabs 03/07/24 04/15/24 Rx umeclidinium 62.5 mcg/actuation 1 inh inhalation QPM #30 ea 03/11/24 04/15/24 Rx blister powder for inhalation (Incruse Ellipta) cefadroxil 500 mg capsule 500 mg PO BID 10 days #20 caps 04/15/24 Rx tramadol 50 mg tablet 50 mg PO Q6H PRN pain #30 tabs 04/15/24 Rx Patient History Medical History (Updated 04/16/24 @ 22:07 by Isela Brown MD) Carpal tunnel syndrome, right SOBOE (shortness of breath on exertion) Cervical spinal stenosis [place] (hard of hearing) No hearing aids Abdominal aortic aneurysm (AAA) S/p EVAR with [employer]onic Endurant stent graft by 03/30/18 Follows with vascular surgery [facility] Surgical History (Updated 04/15/24 @ 13:08 by Venkat Ashley DO) Hx of thyroidectomy [facility] ~12/2023 History of colonoscopy Family History Mother Cerebral aneurysm Other Hypertension No family history of adverse response to anesthesia Denies family history of Ovarian cancer Prostate cancer Myocardial infarction Breast cancer Colorectal cancer Social History Smoking Status: Former smoker Tobacco Type: Cigarettes Age Started Using Tobacco: 17; packs per day: 0.5; Smoking End Date: quit 2021; Second Hand Exposure: Yes (hx); Do You Dip or Chew Tobacco: No; Tobacco Cessation Education Requested by Patient: No Hx Alcohol Use: No Hx Substance Use: No Preferred Language: Panamanian Communication Ability: Effective Visual Impairment: No Limitations Hearing Ability: Normal Parts Counter Associate Required: No Beliefs That Will Affect Care: None marital status: / Current Living Situation: Family Current Living Situation Comment: lives w/ son current occupational status: retired Other Information That Helps Us Care for You: No Feels Safe at Home: Yes Safety Concerns: Feels Safe At This Time Childhood Exposure to Second-Hand Smoke: No caffeine: Yes (coffee, ice tea occasionally, rare soda) Dental Care, Regularly: No Physical Activity Frequency: Daily Seatbelt Use: always Sunscreen Use: No Do you think of yourself as: straight/heterosexual Assistive Devices: Cane Review of Systems Review of Systems: See HPI Physical Exam Physical Exam: Gen: well appearing patient in NAD HEENT: AT MO MMM Resp: CTAB no increased work of breathing CV: RRR no m/r/g clinically well perfused Abd: +BS non-distended MSK: no obvious deformities Skin: erythematous streaking from prior IV site, extends into the left armpit, no axillary lymphadenopathy, no tenderness to palpation/fluctuance/induration/or signs of infection Neuro: alert and oriented Psych: appropriate mood and affect Results & Data Results & Data Vital Signs (Past 12 Hours) Vital Signs Temp Pulse Resp BP Pulse Ox O2 Del Method O2 Flow Rate 04/16/24 21:23 36.6 C 73 18 181/82 H 93 Nasal Cannula 4 04/16/24 16:37 75 170/75 H 91 Nasal Cannula 2 04/16/24 15:24 36.7 C 78 16 179/84 H 93 Nasal Cannula 3 04/16/24 12:40 94 04/16/24 11:13 36.9 C 71 16 159/66 H 94 Nasal Cannula 4 Laboratory Results Impressions Shoulder X-Ray 04/15/24 12:05 XR shoulder RT min 2V routine CLINICAL HISTORY: Post shoulder surgery TECHNIQUE: 3 views of the right shoulder were obtained. Comparison: None available at the time of this dictation. FINDINGS: Patient is status post shoulder arthroplasty with expected postsurgical changes including soft tissue swelling and subcutaneous emphysema. No periarticular lucency or hardware fracture is seen. IMPRESSION: Expected postoperative appearance status post placement of shoulder ar throplasty. ACT 112: Negative or not required by law. Electronically signed by: Rivas Burgess M.D. 04/15/2024 12:55 PM Extremity Venous Study 04/16/24 21:48 Exam(s): US VENOUS LEFT UPPER EXTREMITY EXAM: US Duplex Left Upper Extremity Veins CLINICAL HISTORY: Reason for exam: r/o vte. TECHNIQUE: Real-time duplex ultrasound scan of the left upper extremity veins integrating B-mode two-dimensional vascular structure, Doppler spectral analysis, color flow Doppler imaging and compression. COMPARISON: None. FINDINGS: Deep veins: Unremarkable. No DVT in the internal jugular, subclavian, axillary, or brachial veins. The veins demonstrate normal color flow, are normally compressible, with normal phasic flow and/or augmentation response. Superficial veins: Unremarkable. No thrombus in the visualized basilic and cephalic veins. Soft tissues: No acute findings. IMPRESSION: No ultrasonographic evidence of deep venous thrombosis involving the left upper extremity. Electronically signed by: Hina Campbell MD 04/17/24 00:15 AM Resident Activity Tracking Resident Involvement: Resident Care Provided Care Provided: Adult [facility]
--- NOTE | 2024-04-17 00:16 | Ultrasound Report ---
Exam(s): US VENOUS LEFT UPPER EXTREMITY EXAM: US Duplex Left Upper Extremity Veins CLINICAL HISTORY: Reason for exam: r/o vte. TECHNIQUE: Real-time duplex ultrasound scan of the left upper extremity veins integrating B-mode two-dimensional vascular structure, Doppler spectral analysis, color flow Doppler imaging and compression. COMPARISON: None. FINDINGS: Deep veins: Unremarkable. No DVT in the internal jugular, subclavian, axillary, or brachial veins. The veins demonstrate normal color flow, are normally compressible, with normal phasic flow and/or augmentation response. Superficial veins: Unremarkable. No thrombus in the visualized basilic and cephalic veins. Soft tissues: No acute findings. IMPRESSION: No ultrasonographic evidence of deep venous thrombosis involving the left upper extremity. Electronically signed by: Hina Campbell MD 04/17/24 00:15 AM
--- NOTE | 2024-04-17 01:39 | Billing Data ---
Date of Service April 16, 2024 Coding Level of Care Code 21939 IN/OBS CONSULT LVL 3,45M
--- NOTE | 2024-04-17 07:39 | XRay Report ---
XR chest 1V portable HISTORY: hypoxia COMPARISON: Chest 03/21/2024. FINDINGS: There are low lung volumes. No pneumothorax. Trace bilateral pleural effusions. Patchy biba silar densities have progressed. There is diffuse interstitial thickening, unchanged. This is likely chronic. The heart is top normal in size. There are calcifications within the aortic knob. There is a right shoulder prosthesis. Partially visualized abdominal aortic stent. Cervical spinal fusion hardw are is noted. No evidence for pulmonary edema. IMPRESSION: Low lung volumes with interval progression of the patchy bibasilar densities and trace pleural effusi ons. This could represent atelectasis or a pneumonia. ACT 112: Negative or not required by law. Electronically signed by: Maldonado Haque M.D. 04/17/2024 7:37 AM
--- NOTE | 2024-04-17 10:20 | Hospitalist Progress Note ---
Date of Service April 17, 2024 Assessment & Plan (1) Acute respiratory failure with hypoxia: Plan: Known history of COPD. On LAMA therapy outpatient. Does follow with pulmonology. Patient reports progressive dyspnea on exertion. May benefit from ICS initiation - should follow up with outpatient pulmonology - does not need two step prior to discharge at this can be done at [facility], hopefully she is able to further wean her O2 needs during her rehab stay - CXR: low lung volumes, atelectasis vs PNA - neb now, IS, FV Patient with desaturation to 60s with ambulation --> STAT CTA chest ordered - no PE, conserns for atelceasis vs PNA RLL Will start Zosyn. continue pulmonary toilet (2) Erythema: Plan: Exam consistent with superficial phlebitis. UE Doppler confirms no DVT Warm/cool compresses as needed. Likely self limiting process. (3) Status post reverse total replacement of right shoulder: Plan: POD-1. To f/u with Dr. Ashley's team outpatient. Continue current management per primary team. (4) Osteoarthritis of right shoulder: Plan: See above (5) COPD (chronic obstructive pulmonary disease): Plan: See above (6) Thrombophlebitis/phlebitis, superficial: Plan Dispo: recommend continued inpatient stay given increasing oxygen demands Discussed with Frank baig. Daughter updated by phone Thank you for allowing us to participate in the care of this patient, please reach out with any questions or concerns. We will continue to follow Admission and Anticipated Discharge Date Admission Date: April 15, 2024 Supervising Physician Co-Signing Physician Notes Attending Attestation Chart reviewed, care plan d/w ESTELLE Simpson. I agree w/ the lamas components of her documentation. Agree with canceling d/c in light of O2 requirement/hypoxia. CTA chest findings reviewed. RLL pneumonia vs atelectasis. Agree with IV antibiotics. Pulmonary toilet. Norberto Tidwell MD Subjective Patient seen sitting up in the chair - plan is for [facility] today. she is still requiring oxygen, baseline is room air. reports chronic cough consistent with COPD Otherwise feels well Review of Systems Review of Systems: All systems reviewed & are unremarkable except as noted in Subjective Physical Exam Physical Exam: General: NAD, VS as above Resp: normal respiratory effort, diminished in bases, but no wheezing.on 4L NC CV: RRR, no murmur, Extremities: able to move fingers on surgical side. Erythema on right arm - non tender, bruise at IV site Neuro: A&O x3, Results & Data Results & Data Vital Signs (Past 12 Hours) Vital Signs Temp Pulse Resp BP Pulse Ox O2 Del Method O2 Flow Rate 04/17/24 08:07 4 04/17/24 07:58 165/85 H 04/17/24 07:56 36.6 C 68 18 152/102 H 93 Nasal Cannula 4 04/16/24 22:21 Nasal Cannula 4 Diagnostic Findings UE doppler reviewed, CXR reviewed CT chest reviewed PG Care Time/CCT Total # of Minutes Spent Total Time Spent with Patient: Total time spent is greater than 50% in coordination of care (as documented) at patient's floor/unit and/or counseling patient: Coding Level of Care Code 61305 SUB INP/OBS CARE 3/50MIN Diagnoses Acute respiratory failure with hypoxia J96.01 Erythema L53.9 Status post reverse total replacement of right shoulder Z96.611 Osteoarthritis of right shoulder M19.011 COPD (chronic obstructive pulmonary disease) J44.9 Thrombophlebitis/phlebitis, superficial I80.9
[2024-04-17] MEDS: ALBUT/IPRATROP 3MG/0.5MG NEB 3 ML VIAL NEB STA (11:26)
--- NOTE | 2024-04-17 13:25 | Orthopedic Progress Note ---
Date of Service April 17, 2024 Assessment & Plan (1) Osteoarthritis of right shoulder: (2) Status post reverse total replacement of right shoulder: Plan 84-year-old woman POD# 2 s/p right reverse total shoulder replacement, continues to do well overall. Still with no pain. Medically stable. Educated patient that her inability to actively flex at the right elbow could be due to a number of factors, to include previous history with her cervical spine, a lingering aftereffect of her preoperative nerve block, and potentially even due to the biceps component of the surgery. She is instructed to monitor this and any further concerns can be addressed at her postop clinic visit. Plan: 1. DVT prophylaxis w/ SCDs, early ambulation. Encourage elbow, wrist, digit AROM. 2. PT/OT as tolerated. Sling on at all times, including while sleeping, but may come off to shower and dress. -- follow postop instructions. 3. Pain control doing well with current pain regimen. 4. Disposition --PT/OT did recommend IRF, and patient was accepted at [facility] inpatient rehab facility, and she is due to be transferred there later today. 5. F/u 2-3 weeks post-op w/ orthopedics (Dr. Ashley's team), or as previously scheduled, for first post-op visit. Admission and Anticipated Discharge Date Admission Date: April 15, 2024 Subjective Patient is POD# 2 s/p right reverse total shoulder arthroplasty by Dr. Ashley on 04/15/2024. Patient says her pain remains well-controlled this morning. She continues w/ some numbness in the distal right upper extremity, mostly in the 1st through 3rd digits, and which she says has been present ever since she had a carpal tunnel release. She inquires as to her inability to flex her right elbow. Denies CP, SOB, N/V. She has been accepted at [facility] inpatient rehab facility, and is due to be transferred there once her son arrives to take her. Physical Exam Physical Exam: GENERAL: AA&Ox3, NAD. Pleasant, affect is calm. Sitting in bed with sling donned to RUE, well-fitting. Appears comfortable. RESPIRATORY: Normal respiratory effort with no signs of distress. CHEST/AXILLA: Chest movement symmetrical. No deformities noted. CARDIOVASCULAR: No edema noted. SKIN: [place], warm and dry. MS/EXTREMITY: Shoulder Silverlon dressing c/d/i. + wrist AROM, elbow extension. Arm out of sling briefly to check motor function -- Median/Ulnar/Radial nerve distributions intact to sensory/motor; unable to actively flex at elbow. Radial pulse intact, 2+. Results & Data Vital Signs (Past 12 Hours) Vital Signs Temp Pulse Resp BP Pulse Ox O2 Del Method O2 Flow Rate 04/17/24 13:09 36.7 C 91 H 20 160/78 H 93 Nasal Cannula 4 04/17/24 11:26 96 H 18 95 Nasal Cannula 3 04/17/24 08:07 4 04/17/24 07:58 165/85 H 04/17/24 07:56 36.6 C 68 18 152/102 H 93 Nasal Cannula 4
--- NOTE | 2024-04-17 13:47 | Discharge Summary ---
Date of Service April 17, 2024 Admission HPI Per Admitting Provider Maude is a pleasant 83-year-old female who has been dealing with chronic increasing right shoulder pain. It has been going on for years, but it has been much worse over the past few months. She has had injections of her shoulder without relief. She is having trouble sleeping at night. She is having trouble doing activities away from her body or up overhead. She presents to the office today with her son for evaluation. Admission Exam Per Admitting Provider OBJECTIVE: Appearance: This is a well-developed, well-nourished female in no apparent distress. Musculoskeletal: Physical exam of the right shoulder shows that she has about 110 degrees of forward elevation, 90 degrees of abduction, and 20 degrees of external rotation. Pain over the glenohumeral joint line. She has weakness throughout mostly secondary to pain. Imaging: X-rays obtained in our office today of the right shoulder show advanced glenohumeral arthritis with joint space narrowing and osteophyte formation. There are multiple loose bodies. MRI of the right shoulder ordered by another provider confirms the advanced arthritis. There is some high-grade partial-thickness tear in the rotator cuff and a large joint effusion with multiple loose bodies. Principal Diagnosis Same as "Discharge Diagnosis" noted below under Discharge Instructions. Discharge Exam GENERAL: AA&Ox3, NAD. Pleasant, affect is calm. Sitting in bed with sling donned to RUE, well-fitting. Appears comfortable. RESPIRATORY: Normal respiratory effort with no signs of distress. CHEST/AXILLA: Chest movement symmetrical. No deformities noted. CARDIOVASCULAR: No edema noted. SKIN: [place], warm and dry. MS/EXTREMITY: Shoulder Silverlon dressing c/d/i. + wrist and elbow AROM. Median/Ulnar/Radial nerve distributions intact to sensory/motor. Radial pulse intact, 2+ Discharge Data Allergies Allergy/AdvReac Type Severity Reaction Status Date / Time No Known Allergies Allergy Verified 03/19/24 14:09 Consultations 04/16/24 16:16 Consult Hospitalist Routine Procedures Performed Operation Date: 04/15/24 11:00 Actual Procedures p Right Reverse Total Shoulder Arthroplasty(Right) - Venkat Ashley DO Ordered Studies 04/15/24 05:00 US - OR guided needle placemen Routine 04/16/24 21:48 US venous doppler UE LT Urgent 04/17/24 11:55 CT angio chest PE protocol Stat Shoulder X-Ray 04/15/24 12:05 XR shoulder RT min 2V routine CLINICAL HISTORY: Post shoulder surgery TECHNIQUE: 3 views of the right shoulder were obtained. Comparison: None available at the time of this dictation. FINDINGS: Patient is status post shoulder arthroplasty with expected postsurgical changes including soft tissue swelling and subcutaneous emphysema. No periarticular lucency or hardware fracture is seen. IMPRESSION: Expected postoperative appearance status post placement of shoulder arthroplasty. ACT 112: Negative or not required by law. Electronically signed by: Rivas Burgess M.D. 04/15/2024 12:55 PM Extremity Venous Study 04/16/24 21:48 Exam(s): US VENOUS LEFT UPPER EXTREMITY EXAM: US Duplex Left Upper Extremity Veins CLINICAL HISTORY: Reason for exam: r/o vte. TECHNIQUE: Real-time duplex ultrasound scan of the left upper extremity veins integrating B-mode two-dimensional vascular structure, Doppler spectral analysis, color flow Doppler imaging and compression. COMPARISON: None. FINDINGS: Deep veins: Unremarkable. No DVT in the internal jugular, subclavian, axillary, or brachial veins. The veins demonstrate normal color flow, are normally compressible, with normal phasic flow and/or augmentation response. Superficial veins: Unremarkable. No thrombus in the visualized basilic and cephalic veins. Soft tissues: No acute findings. IMPRESSION: No ultrasonographic evidence of deep venous thrombosis involving the left upper extremity. Electronically signed by: Hina Campbell MD 04/17/24 00:15 AM Chest X-Ray 04/17/24 06:00 XR chest 1V portable HISTORY: hypoxia COMPARISON: Chest 03/21/2024. FINDINGS: There are low lung volumes. No pneumothorax. Trace bilateral pleural effusions. Patchy bibasilar densities have progressed. There is diffuse interstitial thickening, unchanged. This is likely chronic. The heart is top normal in size. There are calcifications within the aortic knob. There is a right shoulder prosthesis. Partially visualized abdominal aortic stent. Cervical spinal fusion hardware is noted. No evidence for pulmonary edema. IMPRESSION: Low lung volumes with interval progression of the patchy bibasilar densities and trace pleural effusions. This could represent atelectasis or a pneumonia. ACT 112: Negative or not required by law. Electronically signed by: Maldonado Haque M.D. 04/17/2024 7:37 AM Hospital Course (1) Osteoarthritis of right shoulder: (2) Status post reverse total replacement of right shoulder: On April 15, 2024 Maude arrived at [facility] operating room and underwent a right reverse total shoulder replacement without complications. Patient had general anesthesia and an interscalene/phrenic nerve block anesthetic for the procedure. Postoperatively, patient was transferred to the general orthopedic floor in stable condition and patient practiced early ambulation for DVT prophylaxis as appropriate. She did have some issues with low pulse oximetry readings and does admit to COPD due to many years of smoking; she now no longer smokes. She received DuoNeb treatments on the floor, which improved her SpO2's. She was noted to have some redness and reported "streaking" by the bedside nurse the night of postoperative day #1. This was assessed by the on-call hospitalist, who determined that it represented some superficial thrombophlebitis, possibly from infiltration at the IV site. This was checked by orthopedics on postoperative day #2, and was overall well- appearing and seemed to be resolving. No streaking was actually noted into the axilla. She had some tenderness described as "brush burn" when the area was palpated, but agreed that the area seem to look and feel better. The patient did end up staying until POD #3 due to her low pulse oximetry readings and breathing troubles, and it was determined that she has a possibility of pneumonia seen on a chest CTA from 04/17/2024. For this, the hospitalist service is placing the patient onto oral antibiotics and recommending outpatient follow- up with a men's basketball coach. Otherwise, patient's hospital course was uneventful. On postoperative day #1, #2, and #3 patient's vital signs were relatively stable and pain was well-controlled. Patient was able to participate well with physical therapy, performing the necessary ambulation and range of motion exercises. Patient was then discharged to [facility]. Patient will follow- up with orthopedics in 2 to 3 weeks for postoperative care. Plan 84-year-old woman POD# 3 s/p right reverse total shoulder replacement, continues to do well overall. Still with no pain. Breathing is improved over yesterday and medicine service is okay with the patient being discharged today with supplemental oxygen and oral antibiotics for possibility of pneumonia. Plan: 1. DVT prophylaxis w/ SCDs, early ambulation. Encourage elbow, wrist, digit AROM. 2. PT/OT as tolerated. Sling on at all times, including while sleeping, but may come off to shower and dress -- follow postop instructions. 3. Pain control doing well with current pain regimen. 4. Disposition -- to [facility] inpatient rehab facility. 5. F/u 2-3 weeks post-op w/ orthopedics (Dr. Ashley's team), or as previously scheduled, for first post-op visit. Total Time Total Time Spent Total Time Spent (In Minutes): Total Time Spent with Patient: Total time spent is greater than 50% in coordination of care (as documented) at patient's floor/unit and/or counseling patient: Discharge Plan Discharge Items Patient Disposition: Transfer Inpatient Rehab Fac Reason For Visit: Degenerative Joint Disease Right Shoulder Discharge Diagnosis: Right reverse shoulder replacement Activity: Per Instructions section Non-emergency contact: Surgeon and Survey Coordinator Call non-emergency contact if: your wound has increased redness and your wound has increased drainage Follow-up/Referrals: Guanaco Barrios PA-C [Outside Practitioners] - (Follow up after discharge from [facility] ) Janay Redding DO [Primary Care Provider] - Diet: Regular Addtl Attending Provider Instructions: Activity and Therapy Recommendations: * If you are using [facility] then therapy will be provided at your home until they feel you have accomplished all of your goals. * If you are using [facility] then Physical Therapy will be provided until they feel you are ready to start Outpatient Physical Therapy. * If you are not using home therapy then Outpatient Physical Therapy should start about 3-5 days from your day of surgery. Therapy will last about 8-12 weeks * Wear your sling for 3 weeks, unless otherwise instructed. You may remove your sling to shower and to dress, but otherwise, you should be in your sling at all times, including while sleeping * The shoulder replacement is very stable and you can use your hand while in the sling * You were shown a series of exercises in the hospital. Do these exercises daily including the exercises you were shown in physical therapy. Medications: * Narcotic You will likely be sent home from the hospital with a prescription for the narcotic pain medication that worked best throughout your stay. * Cefadroxil -take the antibiotic twice a day for 10 days to help prevent infection. * Other medications may be prescribed for specific circumstances. If you have any questions, please call the office at . * Resume previous home medications unless otherwise instructed Dressing Care: Leave the Silverlon dressing in place for 7 days. After 7 days you may remove the dressing. If the incision is not draining then you may leave the sury open to air. If there is a little bit of drainage or if the sury are getting stuck on your clothing then cover the incision with a dry dressing. The sury will be removed at your 2 week follow-up appointment. Showering: You may shower with the Silverlon dressing in place. Do not let the shower s pray hit the dressing directly. Pat the Silverlon dressing dry. If the dressing becomes wet underneath, then simply remove the dressing. Keep the incision dry until you are 7 days out from the day of surgery. After 7 days you may remove the Silverlon dressing and shower with the sury exposed. Let soapy water run over the sury and pat them dry. Do not scrub or soak the incision. Things To Watch For: * Drainage from the incision site that occurs more than one week after your surgery. * Increased redness at the incision site. * Fever above 102 degrees Fahrenheit. * Unusual chest pain or shortness of breath. * Call [facility] at with any of the above problems Follow-Up Visit: Follow-up with Dr. Ashley's PA (Venkat Castellano) 2-3 weeks after your day of surgery. He will remove your sury and answer any questions. If you have any additional questions or concerns, Dr Ashley is usually in the office at the same time and will be available An appointment was probably scheduled when you signed-up for surgery in the office. If you have any questions call More detailed instructions as well as Frequently Asked Questions were provided in a folder by our office when you signed-up for surgery. Please review these instructions when you get home. If you have any further questions or concerns, please feel free to call the office at [phone] Addtl I&C Tech Provider Instructions: Hospital medicine: Recommend follow up with outpatient pulmonology after discharge from [facility] - suspect will need escalation in her COPD therapy. doxycline and cirpo BID through 04/24 Pending Studies at Discharge: No Stand-Alone Forms: My [facility] Skilled Items Patient informed of condition?: Yes DNR: No Discharge Level of Care: Acute rehab Communicable Disease: No Discharge Prognosis: Improving Lines: None Urinary Catheter: No Medications and DC Order Prescriptions: New cefadroxil 500 mg capsule 500 mg PO BID 10 Days Qty: 20 0RF tramadol 50 mg tablet 50 mg PO Q6H PRN (Reason: pain) Qty: 30 0RF ciprofloxacin HCl 250 mg Tablet 750 mg PO Q12H 7 Days Qty: 42 0RF doxycycline hyclate 100 mg Capsule 100 mg PO BID 7 Days Qty: 14 0RF Continued atorvastatin 20 mg tablet 20 mg PO HS Qty: 90 3RF levothyroxine 125 mcg tablet 125 mcg PO DAILY Qty: 30 3RF lisinopril 10 mg tablet 20 mg PO QPM Qty: 180 3RF Incruse Ellipta 62.5 mcg/actuation blister with device 1 inh inhalation QPM Qty: 30 3RF Rx Instructions: replaces spiriva acetaminophen 325 mg tablet 650 mg PO QID PRN (Reason: pain) Qty: 10 0RF Zyrtec 10 mg capsule 10 mg PO DAILY PRN (Reason: allergy symptoms) Qty: 30 0RF albuterol sulfate [Ventolin HFA] 90 mcg/actuation HFA aerosol inhaler 2 puff INH Q6H PRN (Reason: shortness of breath or wheezing) Qty: 1 3RF multivitamin [Daily Multi-Vitamin] tablet 1 tab PO QAM cyanocobalamin (vitamin B-12) 1,000 mcg tablet extended release 1,000 mcg PO QAM cholecalciferol (vitamin D3) 25 mcg (1,000 unit) capsule 25 mcg PO QAM Discharge Orders: Discharge Order (Routine); Ordered 04/18/24 Ordered By: Frank Christensen Admission Data Admit Date/Time: 04/15/24 12:05 Attending Provider: Venkat Ashley Admit Provider: Venkat sAhley Primary Care Provider: Janay Redding Other Providers: [facility]; Norberto Tidwell
[2024-04-17] MEDS: OPTIRAY 320 125ml IV ONE (14:33)
--- NOTE | 2024-04-17 15:15 | CT Scan Report ---
CHEST CTA for PULMONARY ARTERIES CT DOSE: 949.39 mGy.cm HISTORY: PE, hypoxia, post op TECHNIQUE: Multiaxial CT images of the chest were performed following the intravenous administration of contrast to evaluate the pulmonary arteries. 3D/Maximal intensity projection images were also obta ined. Sagittal and coronal reformations were also reviewed. A dose lowering technique was utilized a dhering to the principles of ALARA. COMPARISON STUDY: None. FINDINGS: There is an old sternal fracture. Mild anterior wedging at T1 is likely chronic. Cervical s arsen fusion hardware and a right shoulder prosthesis are noted. Skin sury and soft tissue gas wit hin the right shoulder consistent with the recent postoperative change. There are old, healed right-s ided rib fractures. No acute fractures within the chest. The heart is mildly enlarged. No pleural or pericardial effusions. Calcified plaque within the normal caliber thoracic aorta. No evidence for an aortic dissection. No filling defects within the pulmonary arteries to suggest a pulmonary embolus. N o mediastinal or hilar lymphadenopathy. Normal esophagus. Limited views the upper abdomen demonstrate normal liver, spleen, left adrenal gland. Small right adrenal gland nodules favor benign adenomas. E mphysema. No pneumothorax. The central airways are patent. Bibasilar consolidation most pronounced wi thin the right lower lobe. This favors a pneumonia. Atelectasis could also have a similar appearance. No evidence for pulmonary edema. IMPRESSION: 1. No evidence for a pulmonary embolus. 2. Bibasilar consolidation most pronounced within the right lower lobe. This favors a pneumonia. Atel ectasis could also have a similar appearance. 3. Emphysema. 4. Additional findings as described above. ACT 112: Negative or not required by law. Electronically signed by: Maldonado Haque M.D. 04/17/2024 3:14 PM
[2024-04-17] MEDS: PIPERACILLIN/TAZOBACTAM 4.5 GM in DEXTROSE 5% MINI-B 100 ML IV ONE (16:18)
[2024-04-17 18:07] LABS: Est GFR (African American) 58.6 ml/min; Est GFR (Non-African American) 50.6 ml/min
[2024-04-17] MEDS ORDERED: ALBUTEROL 0.5% NEB SOLN 2.5 MG/0.5 ML VIAL NEB PRN (19:03)
[2024-04-17] MEDS: MELATONIN 3 MG TAB PO PRN (21:20)
[2024-04-17] MEDS: PIPERACILLIN/TAZOBACTAM 4.5 GM in DEXTROSE 5% MINI-B 100 ML IV SCH (22:23)
[2024-04-18 06:12] LABS: Basophils # (auto) 0.04 K/uL (0.00-0.20); Basophils % (auto) 0.4 %; Eosinophils # (auto) 0.04 K/uL (0.00-0.50); Eosinophils % (auto) 0.4 %; Hematocrit (blood only) 35.4 % (37.0-47.0); Hemoglobin 11.7 g/dl (12.0-16.0); Immature Granulocytes # (auto) 0.04 K/uL (0.01-0.20); Immature Granulocytes % (auto) 0.4 %; Lymphocytes # (auto) 1.48 K/uL (1.20-3.40); Lymphocytes % (auto) 13.8 %; Mean Corpuscular Hemoglobin 31.8 pg (25.0-34.0); Mean Corpuscular Hgb Conc 33.1 g/dL (32.0-36.0); Mean Corpuscular Volume 96.2 fL (80.0-100.0); Mean Platelet Volume 9.9 fL (9.4-12.4); Monocytes # (auto) 0.95 K/uL (0.11-0.59); Monocytes % (auto) 8.9 %; Neutrophils # (auto) 8.16 K/uL (1.40-6.50); Neutrophils % (auto) 76.1 %; Platelet Count 183 K/uL (130-400); RDW Coefficient of Variation 13.7 % (11.5-14.5); RDW Standard Deviation 48.9 fL (36.4-46.3); Red Blood Count 3.68 M/uL (4.20-5.40); White Blood Count 10.71 K/ul (4.8-10.8)
[2024-04-18 06:20] LABS: BUN Creatinine Ratio 31.6 (10-20); Calcium 7.5 mg/dl (8.6-10.3); Creatinine Clr Calc Pharmacy 43.4 ml/min; Est GFR (African American) 64.6 ml/min; Est GFR (Non-African American) 55.8 ml/min
--- NOTE | 2024-04-18 08:52 | Hospitalist Progress Note ---
Date of Service April 18, 2024 Assessment & Plan (1) Acute respiratory failure with hypoxia: Plan: Known history of COPD. On LAMA therapy outpatient. Does follow with pulmonology. Patient reports progressive dyspnea on exertion. May benefit from ICS initiation - should follow up with outpatient pulmonology - does not need two step prior to discharge at this can be done at [facility], hopefully she is able to further wean her O2 needs during her rehab stay - CXR: low lung volumes, atelectasis vs PNA - neb now, IS, FV Patient with desaturation to 60s with ambulation --> STAT CTA chest ordered - no PE, concerns for atelectasis vs PNA RLL Transition from Zosyn to PO doxycycline and ciprofloxacin BID through 04/24 continue pulmonary toilet (2) Erythema: Plan: Exam consistent with superficial phlebitis. UE Doppler confirms no DVT Warm/cool compresses as needed. Likely self limiting process. (3) Status post reverse total replacement of right shoulder: Plan: POD-1. To f/u with Dr. Ashley's team outpatient. Continue current management per primary team. (4) Osteoarthritis of right shoulder: Plan: See above (5) COPD (chronic obstructive pulmonary disease): Plan: See above - needs outpatient pulmonary follow up (6) Thrombophlebitis/phlebitis, superficial: Plan Dispo:okay to discharge to [facility] today, will need outpatient pulm follow up Thank you for allowing us to participate in the care of this patient, please reach out with any questions or concerns. We will continue to follow Admission and Anticipated Discharge Date Admission Date: April 15, 2024 Supervising Physician Co-Signing Physician Notes Attending Attestation - Chart reviewed, care plan d/w ESTELLE Simpson. I agree w/ the lamas components of her documentation. Cont antibiotics upon transfer to [facility]. Cont pulmonary toilet. Cont NC O2 and wean as tolerated. Cont inhalers. Should have pulmonary f/u post-discharge from [facility]. Norberto Tidwell MD Subjective Patient sitting up in the chair, feels much better than yesterday and reports that she feels near baseline. does get winded with walking to the bathroom but reports that happens at home. cough has decreased Review of Systems Review of Systems: All systems reviewed & are unremarkable except as noted in Subjective Physical Exam Physical Exam: General: NAD, VS as above Resp: normal respiratory effort, diminished in bases, but no wheezing.on 3L NC. Dropped to 80 when getting back to bed, but recovered CV: RRR, no murmur, Extremities: able to move fingers on surgical side. Erythema on right arm - improving Neuro: A&O x3, Results & Data Results & Data Vital Signs (Past 12 Hours) Vital Signs Temp Pulse Resp BP Pulse Ox O2 Del Method O2 Flow Rate 04/18/24 07:32 Nasal Cannula 3 04/18/24 07:30 36.7 C 76 20 150/79 H 90 Nasal Cannula 3 Laboratory Results CBC and chemistry reviewed PG Care Time/CCT Total # of Minutes Spent Total Time Spent with Patient: Total time spent is greater than 50% in coordination of care (as documented) at patient's floor/unit and/or counseling patient: Coding Level of Care Code 07169 SUB INP/OBS CARE 2/35MIN Diagnoses Acute respiratory failure with hypoxia J96.01 Erythema L53.9 Status post reverse total replacement of right shoulder Z96.611 Osteoarthritis of right shoulder M19.011 COPD (chronic obstructive pulmonary disease) J44.9 Thrombophlebitis/phlebitis, superficial I80.9
--- NOTE | 2024-04-18 09:41 | Orthopedic Progress Note ---
Date of Service April 18, 2024 Assessment & Plan (1) Osteoarthritis of right shoulder: (2) Status post reverse total replacement of right shoulder: Plan 84-year-old woman POD# 3 s/p right reverse total shoulder replacement, continues to do well overall. Still with no pain. Breathing is improved over yesterday and medicine service is okay with the patient being discharged today with supplemental oxygen and oral antibiotics for possibility of pneumonia. Plan: 1. DVT prophylaxis w/ SCDs, early ambulation. Encourage elbow, wrist, digit AROM. 2. PT/OT as tolerated. Sling on at all times, including while sleeping, but may come off to shower and dress -- follow postop instructions. 3. Pain control doing well with current pain regimen. 4. Disposition -- to [facility] inpatient rehab facility. 5. F/u 2-3 weeks post-op w/ orthopedics (Dr. Ashley's team), or as previously scheduled, for first post-op visit. Admission and Anticipated Discharge Date Admission Date: April 15, 2024 Subjective Patient is POD# 3 s/p right reverse total shoulder arthroplasty by Dr. Ashley on 04/15/2024. Pain remains well-controlled. Numbness to distal right upper extremity improving. She is able to flex the right elbow today. It seems that maybe she was actually trying to forward flex and abduct the right shoulder, which of course will take some time. Denies CP. She feels more her baseline today and her breathing is improving. She has been accepted at [facility] inpatient rehab facility, and is due to be transferred there once her son roby rrives to take her. Physical Exam Physical Exam: GENERAL: AA&Ox3, NAD. Pleasant, affect is calm. Sitting in bed with sling donned to RUE, well-fitting. Appears comfortable. RESPIRATORY: Normal respiratory effort with no signs of distress. CHEST/AXILLA: Chest movement symmetrical. No deformities noted. CARDIOVASCULAR: No edema noted. SKIN: [place], warm and dry. MS/EXTREMITY: Shoulder Silverlon dressing c/d/i. + wrist and elbow AROM. Median/Ulnar/Radial nerve distributions intact to sensory/motor. Radial pulse intact, 2+. Results & Data Vital Signs (Past 12 Hours) Vital Signs Temp Pulse Resp BP Pulse Ox O2 Del Method O2 Flow Rate 04/18/24 07:32 Nasal Cannula 3 04/18/24 07:30 36.7 C 76 20 150/79 H 90 Nasal Cannula 3
[2024-04-18] MEDS: DOXYCYCLINE HYCLATE 100 MG CAP PO SCH (10:05)
[2024-04-18] MEDS: CIPROFLOXACIN 250 MG TAB PO SCH ×2 (10:28→10:57)
== END 2024-04-18 17:05 ==
LOC: ASU 09:22 → 3E 09:22

== ENCOUNTER 2025-09-15 19:53 | Inpatient (IN) ==
[2025-09-15 21:14] LABS: Alanine Aminotransferase 37 U/L (7-52); Albumin Globulin Ratio 0.8 (0.9-2); Albumin Level 3.0 gm/dl (3.4-5.0); Alkaline Phosphatase 139 U/L (34-104); Anion Gap 10 (3-11); Bilirubin,Total 0.3 mg/dl (0.2-1.0); Blood Urea Nitrogen 41 mg/dl (6-23); Calcium 8.7 mg/dl (8.6-10.3); Carbon Dioxide 24 mmol/L (21-32); Chloride 103 mmol/L (98-107); Globulin 3.6 gm/dl (2.5-4.0); Glucose 129 mg/dl (70-99(Fasting)); Lipase 16 U/L (11-82); Potassium 4.6 mmol/L (3.5-5.1); Sodium 137 mmol/L (136-145); Total Protein 6.6 gm/dl (6.0-8.3)
[2025-09-15 21:17] LABS: Appearance Urine Turbid (Clear); Bacteria Urine Automated 4+ (None Seen); Glucose Urine UA Negative (Negative); WBC Urine Automated >50 /hpf (0-5)
[2025-09-15 21:27] LABS: Cast Urine Automated 0-2 /lpf (0-2)
[2025-09-15 21:36] LABS: Hematocrit (blood only) 34.9 % (37.0-47.0); Hemoglobin 11.4 g/dl (12.0-16.0); Immature Granulocytes # (auto) 0.08 K/uL (0.01-0.20); Immature Granulocytes % (auto) 0.6 %; Mean Corpuscular Hemoglobin 33.4 pg (25.0-34.0); Mean Corpuscular Volume 102.3 fL (80.0-100.0); Platelet Count 268 K/uL (130-400); RDW Standard Deviation 58.0 fL (36.4-46.3); Red Blood Count 3.41 M/uL (4.20-5.40); White Blood Count 14.35 K/ul (4.8-10.8)
--- NOTE | 2025-09-15 22:42 | Emergency Department Note ---
Impression & Plan UTI (urinary tract infection), Ambulatory dysfunction ED Provider Note NAME: LIO HDZ AGE: 85 SEX: F : 1940 ARRIVES VIA: Walk-In INFORMANT: Patient, ED PROVIDER(S): Percy Orozco MD CHIEF COMPLAINT: Urinary burning HPI: This is a an 85-year-old female seen for burning with urination. Patient was recently transferred to [facility] from [facility]. Patient had broken her left ankle. She notes chronic dysuria however she has had worsening over the past 1 to 2 days. Symptoms have been intermittent for months however. No fevers or chills with this. No associated confusion. Stable shortness of breath with exertion due to COPD. No nausea, vomiting, diarrhea. ROS: See above HPI for pertinent positives & negatives. A total of 10 systems reviewed and were otherwise negative. PAST MEDICAL HISTORY: See Below PAST SURGICAL HISTORY: See Below FAMILY HISTORY: See Below SOCIAL HISTORY: See Below HOME MEDICATIONS: See Below ALLERGIES: See Below VITALS: See Below PHYSICAL EXAMINATION: General: resting comfortably in no acute distress Head: Normocephalic and atraumatic Eyes: Normal inspection, extraocular muscles intact Ear, nose, throat: Normal external exam Neck: Normal range of motion Respiratory: lungs clear to auscultation bilaterally Cardiovascular: Regular rate/rhythm, no murmur GI: soft, nontender, no guarding or rebound Extremities: nontender, moves all extremities Neuro: The patient awake and alert, appropriately conversive, no focal deficits, symmetric faces Skin: Warm, dry, and intact MEDICAL DECISION MAKING: This is an 85-year-old female presenting for burning with urination. Will do screening blood work, urinalysis at this time. -Initial blood pressure at triage was fairly low however this was not reproducible on repeat blood pressure evaluations immediately upon evaluation. She was never hypotensive in the emergency department during her stay after this 1 isolated read. - Leukocytosis noted to 14.35. Hemoglobin 11.4. Creatinine increasing to 1.5. Urinalysis reveals signs of UTI at this time which are antibiotics at this time. - Family request x-ray due to possible hardware malfunction of the right ankle. They think hardware has been dislodged. Patient complains of chronic pain here. - X-ray reveals no osseous dislocation, does reveal hardware in place - Advised patient and family of patient's findings. Family request admission as the the patient was taken out of [facility] [place] by her family. - Care discussed with Sameera Valladares PA-C for hospital service under Dr. Maldonado Differential diagnosis: UTI, sepsis, ambulatory dysfunction Independent History obtained from: Daughter, son Diagnostics interpreted by me: ECG: ECG independently interpreted by me with normal sinus rhythm, rate of 77, normal ID, normal QRS, normal QTc, no ST segment elevations consistent with STEMI criteria Cardiac Monitoring: An order was placed for continuous cardiac monitoring. The monitor shows a rate of 76 with sinus rhythm. Past Med/Surg History Problem List (Updated 09/16/25 @ 12:18 by Percy Orozco MD) Ambulatory dysfunction (Acute) UTI (urinary tract infection) (Acute) Ambulatory dysfunction Ankle fracture, left (08/24/25) Acute nondisplaced fractures of the left distal fibula and medial malleolus from a fall Sepsis Recurrent UTI (urinary tract infection) Vaginal burning Condyloma acuminata Rheumatoid arthritis Thrombophlebitis/phlebitis, superficial Status post reverse total replacement of right shoulder (~04/2024) Right shoulder pain Carpal tunnel syndrome on both sides Cervical radicular pain Thyroid carcinoma 08/2023, s/p thyroidectomy - no chemo or XRT Acute respiratory failure with hypoxia Lumbar spinal stenosis due to adjacent segment disease after fusion procedure Cervical spinal stenosis due to adjacent segment disease after fusion procedure Lumbar stenosis with neurogenic claudication Low vitamin B12 level Thyroid Nodule COPD (chronic obstructive pulmonary disease) Breathing stable Carotid stenosis, bilateral (Acute) Follows with [facility] vascular surgery- 2016 duplex showed <50% stenosis to bilateral ICAs Adenomatous polyp of colon (Acute) Hyperlipidemia (Acute) Hypertension (Acute) Lumbar canal stenosis (Acute) Osteoporosis, post-menopausal (Acute) Medical History (Updated 09/16/25 @ 12:18 by Percy Orozco MD) H/O chronic ulcerative colitis Occ severe abdominal pain- no current issues Osteoarthritis of right shoulder Carpal tunnel syndrome, right SOBOE (shortness of breath on exertion) Cervical spinal stenosis [place] (hard of hearing) No hearing aids Abdominal aortic aneurysm (AAA) S/p EVAR with [employer] Endurant stent graft by 03/30/18 Follows with vascular surgery [facility] Surgical History S/P cervical disc replacement Status post cervical spinal fusion History of lumbar surgery History of ankle surgery Status post percutaneous abdominal aortic aneurysm (AAA) repair S/P lumbar spine operation H/O neck surgery H/O colonoscopy History of dental surgery S/P breast biopsy Hx of thyroidectomy History of colonoscopy Family History Mother Cerebral aneurysm Other Hypertension No family history of adverse response to anesthesia Denies family history of Ovarian cancer Prostate cancer Myocardial infarction Breast cancer Colorectal cancer Social History Smoking Status: Never smoker Tobacco Type: Cigarettes Age Started Using Tobacco: 17; Age Quit Using Tobacco: 81; packs per day: 1; Second Hand Exposure: Yes (hx); Do You Dip or Chew Tobacco: No; Hx Alcohol Use: No Hx Substance Use: No Preferred Language: [place] Communication Ability: Effective Visual Impairment: No Limitations Hearing Ability: Normal Applications Tester Required: No Beliefs That Will Affect Care: None marital status: / Current Living Situation: Family Current Living Situation Comment: lives w/ son current occupational status: retired Feels Safe at Home: Yes Childhood Exposure to Second-Hand Smoke: No caffeine: Yes (coffee, ice tea occasionally, rare soda) Dental Care, Regularly: No Physical Activity Frequency: Daily Seatbelt Use: always Sunscreen Use: No Do you think of yourself as: straight/heterosexual Assistive Devices: Cane Allergies Allergies Allergy/AdvReac Type Severity Reaction Status Date / Time No Known Allergies Allergy Verified 09/15/25 22:51 Home Meds Home Medications Medication Instructions Recorded Confirmed multivitamin (Daily Multi-Vitamin 1 tab PO QAM 02/06/23 09/15/25 tablet) folic acid 1 mg tablet 1 mg PO DAILY 12/06/24 09/15/25 cyanocobalamin (vitamin B-12) 500 mcg PO QAM 12/09/24 09/15/25 1,000 mcg tablet,extended release aspirin 81 mg tablet 81 mg PO DAILY 12/16/24 09/15/25 levothyroxine 125 mcg capsule 125 mcg PO DAILY 09/12/25 09/15/25 melatonin 3 mg tablet 3 mg PO HS PRN Sleep 09/12/25 09/15/25 methotrexate sodium 2.5 mg tablet 10 mg PO WK 09/12/25 09/15/25 tramadol 50 mg tablet 50 mg PO Q6H PRN Pain 09/12/25 09/15/25 imiquimod 5 % topical cream packet 1 applic topical 2XWK 09/15/25 09/15/25 lidocaine-prilocaine 2.5 %-2.5 % 1 applic topical DIRECTED PRN 09/15/25 09/15/25 topical cream Pain Previous Rx's Medication Instructions Recorded acetaminophen 325 mg tablet 650 mg (2 x 325 mg) PO QID PRN 03/22/21 pain #10 tabs albuterol sulfate 90 mcg/actuation 2 puff inhalation Q6H PRN 04/12/22 aerosol inhaler (Ventolin HFA) shortness of breath or wheezing #1 inhaler atorvastatin 20 mg tablet 20 mg PO HS #90 tabs 10/08/24 cholecalciferol (vitamin D3) 25 500 unit PO QAM #90 caps 12/09/24 mcg (1,000 unit) capsule umeclidinium 62.5 mcg-vilanterol 1 inh inhalation DAILY #180 ea 03/04/25 25 mcg/actuation powdr for inhalation (Anoro Ellipta) lisinopril 10 mg tablet 20 mg (2 x 10 mg) PO QPM #180 tabs 04/08/25 clobetasol 0.05 % topical cream 1 g topical DAILY #30 grams 07/16/25 Results & Data (ED) Vital Signs Vital Signs - 24 hr 09/15/25 20:05 09/15/25 20:35 09/15/25 21:30 Temperature 36.7 C Temperature Source Temporal Artery Scan Pulse Rate 102 H 96 H Pulse Rate [Apical] 81 Pulse Rhythm [Apical] Respiratory Rate 18 20 Respiratory Effort / Characteristics Non-Labored Spontaneous Non-Labored Spontaneous Respiratory Depth Normal Normal Respiratory Pattern Regular Regular Blood Pressure 71/46 L Blood Pressure [Right Arm] 139/71 Blood Pressure Mean 54 Blood Pressure Mean [Right Arm] 93 Pulse Oximetry 91 95 Oxygen Delivery Method Nasal Cannula Nasal Cannula Oxygen Flow Rate 3 3 Sepsis Recent Fever Within 48 Hours No Sepsis New/Unexplained Change in Mental Status N/A Sepsis Action Taken by Nursing No Action Required 09/15/25 22:00 09/15/25 23:00 Temperature Temperature Source Pulse Rate Pulse Rate [Apical] 87 85 Pulse Rhythm [Apical] Regular Respiratory Rate 21 21 Respiratory Effort / Characteristics Non-Labored Spontaneous Non-Labored Spontaneous Respiratory Depth Normal Normal Respiratory Pattern Regular Regular Blood Pressure Blood Pressure [Right Arm] 134/76 147/76 H Blood Pressure Mean Blood Pressure Mean [Right Arm] 95 99 Pulse Oximetry 94 93 Oxygen Delivery Method Nasal Cannula Nasal Cannula Oxygen Flow Rate 3 3 Sepsis Recent Fever Within 48 Hours Sepsis New/Unexplained Change in Mental Status Sepsis Action Taken by Nursing Laboratory Data 09/16/25 04:25 09/16/25 04: Lab Results 09/15/25 09/15/25 Range/Units 20:39 23:00 WBC 14.35 H (4.8-10.8) K/ul RBC 3.41 L (4.20-5.40) M/uL Hgb 11.4 L (12.0-16.0) g/dl Hct 34.9 L (37.0-47.0) % MCV 102.3 H (80.0-100.0) fL MCH 33.4 (25.0-34.0) pg MCHC 32.7 (32.0-36.0) g/dL RDW Std Deviation 58.0 H (36.4-46.3) fL RDW Coeff of [place] 15.8 H (11.5-14.5) % Plt Count 268 (130-400) K/uL MPV 9.4 (9.4-12.4) fL Immature Gran % (Auto) 0.6 % Neut % (Auto) 69.0 % Lymph % (Auto) 19.8 % [place] % (Auto) 9.0 % Eos % (Auto) 1.3 % Baso % (Auto) 0.3 % Neut # (Auto) 9.92 H (1.40-6.50) K/uL Lymph # (Auto) 2.84 (1.20-3.40) K/uL [place] # (Auto) 1.29 H (0.11-0.59) K/uL Eos # (Auto) 0.18 (0.00-0.50) K/uL Baso # (Auto) 0.04 (0.00-0.20) K/uL Immature Gran # (Auto) 0.08 (0.01-0.20) K/uL Sodium 137 (136-145) mmol/L Potassium 4.6 (3.5-5.1) mmol/L Chloride 103 (98-107) mmol/L Carbon Dioxide 24 (21-32) mmol/L Anion Gap 10 (3-11) BUN 41 H (6-23) mg/dl Creatinine 1.50 H (0.6-1.2) mg/dl Est Cr Clr Drug Dosing Not Reportable eGFR 34.36 BUN/Creatinine Ratio 27.3 H (10-20) Glucose 129 H (70-99(Fasting)) mg/dl Lactate 1.3 (0.4-2.0) mmol/L Calcium 8.7 (8.6-10.3) mg/dl Magnesium 1.9 (1.7-2.4) mg/dl Total Bilirubin 0.3 (0.2-1.0) mg/dl AST 15 (13-39) U/L ALT 37 (7-52) U/L Alkaline Phosphatase 139 H (34-104) U/L Troponin I High Sens 10.5 (0-14) pg/ml Total Protein 6.6 (6.0-8.3) gm/dl Albumin 3.0 L (3.4-5.0) gm/dl Globulin 3.6 (2.5-4.0) gm/dl Albumin/Globulin Ratio 0.8 L (0.9-2) Lipase 16 (11-82) U/L Urine Color Yellow Urine Appearance Turbid A (Clear) Urine pH 6.0 (4.5-7.5) Ur Specific [place] 1.016 (1.000-1.030) Urine Protein 3+ H (Negative) Urine Glucose (UA) Negative (Negative) Urine Ketones Trace H (Negative) Urine Blood 3+ H (Negative) Urine Nitrite Negative (Negative) Urine Bilirubin Negative (Negative) Urine Urobilinogen Negative (Negative) Ur Leukocyte Esterase 3+ H (Negative) Urine WBC (Auto) >50 H (0-5) /hpf Urine RBC (Auto) 11-20 H (0-2) /hpf U Hyaline Cast (Auto) 0-2 (0-2) /lpf U Epithel Cells (Auto) 3-5 H (0-2) /hpf Urine Bacteria (Auto) 4+ H (None Seen) Urine Comment Administered Medications Acetaminophen (Acetaminophen 325 Mg Tab) 650 mg PO QID PRN PRN Reason: pain Stop: 10/16/25 01:43 Last Admin: 09/16/25 08:04 Dose: 650 mg Documented By: Admin: 09/16/25 02:21 Dose: 650 mg Documented By: CHAGO Aspirin (Aspirin 81 Mg Ectab) 81 mg PO DAILY DANIKA Stop: 10/16/25 08:59 Last Admin: 09/16/25 08:04 Dose: 81 mg Documented By: FRANKLYN Levothyroxine Sodium (Levothyroxine Sodium 125 Mcg Tablet) 125 mcg PO DAILYBB DANIKA Stop: 10/16/25 06:29 Last Admin: 09/16/25 06:05 Dose: 125 mcg Documented By: KEITH Melatonin (Melatonin 3 Mg Tab) 3 mg PO HS PRN PRN Reason: Sleep Stop: 10/16/25 01:43 Last Admin: 09/16/25 02:21 Dose: 3 mg Documented By: CHAGO Phenazopyridine HCl (Phenazopyridine Hcl 200 Mg Tab) 200 mg PO Q8H PRN PRN Reason: Dysuria Stop: 10/16/25 01:33 Last Admin: 09/16/25 02:21 Dose: 200 mg Documented By: CHAGO Tramadol HCl (Tramadol Hcl 50 Mg Tablet) 50 mg PO Q6H PRN PRN Reason: Pain Stop: 10/16/25 01:43 Last Admin: 09/16/25 08:04 Dose: 50 mg Documented By: Admin: 09/16/25 02:23 Dose: 50 mg Documented By: CHAGO Umeclidinium/Vilanterol (Umeclidinium/Vilanterol 62.5/25mcg 7 Puffs/Inhaler) 1 puffs INH DAILY DANIKA Stop: 10/16/25 08:59 Last Admin: 09/16/25 08:04 Dose: 1 puffs Documented By: FRANKLYN Discontinued Medications Ceftriaxone Sodium (Rocephin) 2,000 mg in 50 mls @ 100 mls/hr IV NOW STA Stop: 09/15/25 22:53 Last Infusion: 09/16/25 00:15 Dose: Infused Documented By: Admin: 09/15/25 23:03 Dose: 100 mls/hr Documented By: CHAGO Lactated Ringer's (Lr) 1,000 mls @ 80 mls/hr IV .[id number] DANIKA Stop: 09/17/25 00:29 Last Infusion: 09/16/25 09:37 Dose: Infused Documented By: Admin: 09/16/25 02:20 Dose: 80 mls/hr Documented By: CHAGO Sodium Chloride (Nss) 1,000 mls @ 999 mls/hr IV .Q1H1M DANIKA Stop: 09/16/25 00:25 Last Infusion: 09/16/25 02:00 Dose: Infused Documented By: Admin: 09/16/25 00:14 Dose: 999 mls/hr Documented By: SHREE Daptomycin 500 mg/ Syringe 10 mls @ 5 mls/min IV NOW ONE; Protocol Stop: 09/15/25 23:46 Last Admin: 09/16/25 00:13 Dose: 5 mls/min Documented By: SHREE Ioversol (Optiray 320 100ml) 93 ml IV ONCE ONE Stop: 09/15/25 23:40 Last Admin: 09/15/25 23:39 Dose: 93 ml Documented By: GUILLERMINA Imaging Data Radiologist's Impression: Abdomen/Pelvis CT 09/15/25 23:26 Exam(s): CT ABDOMEN + PELVIS W/WO Contrast IV Amt: 93 cc opti 320 EXAM: CT Abdomen and Pelvis Without and With Intravenous Contrast CLINICAL HISTORY: Reason for exam: recurrent UTIs, sepsis. TECHNIQUE: Axial computed tomography images of the abdomen and pelvis without and with intravenous contrast. CTDI is 42.25 mGy and DLP is 1220.95 mGy-cm. Automated exposure control was utilized for the study. A dose lowering technique was utilized adhering to the principles of ALARA. CONTRAST: Patient received 93 cc opti 320 of IV contrast COMPARISON: No relevant prior studies available. FINDINGS: Lung bases: There are bibasilar areas of atelectasis. Heart is enlarged and contains coronary artery calcifications. ABDOMEN: Liver: No mass. Gallbladder and bile ducts: No calcified stones. No ductal dilation. Pancreas: No mass. No ductal dilation. Spleen: No splenomegaly. Adrenals: The left adrenal gland is unremarkable. There is a 1 cm nodule in the right adrenal gland Kidneys and ureters: There are small bilateral renal calcifications. There is bilateral hydronephrosis and hydroureters. No obstructing calculi are seen. There are rounded lucencies in both kidneys.. Stomach and bowel: The stomach is relatively decompressed. There is air and stool noted in the colon.. PELVIS: Appendix: Unremarkable CT scan appearance noted the appendix.. Bladder: The urinary bladder is distended. There is irregular thickening of the urinary bladder wall. . Reproductive: Unremarkable as visualized. ABDOMEN and PELVIS: Intraperitoneal space: . No free air. No significant fluid collection. Bones/joints: There are degenerative and postoperative changes involving the spine. There are degenerative changes in the hips.. Soft tissues: Unremarkable. Vasculature: There are atherosclerotic changes. There is a 3.1 cm aneurysm noted of the abdominal aorta. There is a patent aortobiiliac stent present.. Lymph nodes: No enlarged lymph nodes. IMPRESSION: There are small bilateral renal calcifications. There is bilateral hydronephrosis and hydroureters. No obstructing calculi are noted. There is irregular thickening noted of the urinary bladder wall. This can be seen with cystitis. There are possible bilateral renal cysts. There are 1 cm nodule in the right adrenal gland may represent an adenoma. See discussion above Electronically signed by: Hernandez Taylor MD 09/16/25 01:04 AM Discharge Plan Visit Data Chief Complaint: Urinary Symptoms Stated Complaint: UTI ED Provider: Percy Orozco Discharge Problem: UTI (urinary tract infection), Ambulatory dysfunction Patient Disposition: Admitted As Inpatient Condition: Fair Discharge Instructions Interventions: ED Discharge Assessment Last Done: 09/16/25 01:44
[2025-09-15] MEDS: cefTRIAXone SODIUM 2,000 MG/50 ML BAG IV STA (23:03)
[2025-09-15 23:07] LABS: Magnesium 1.9 mg/dl (1.7-2.4)
--- NOTE | 2025-09-15 23:20 | History & Physical Report ---
Date of Service September 15, 2025 Assessment & Plan (1) Recurrent UTI (urinary tract infection): (2) Sepsis: (3) Ankle fracture, left: (4) Ambulatory dysfunction: Plan Patient is an 85-year-old female with a past medical history of recurrent UTIs, rheumatoid arthritis on methotrexate, thyroid CA, HTN, HLD. Patient presented due to several months of dysuria and increasing urinary frequency found to have a positive UA for UTI and meeting SIRs criteria with leukocytosis, tachycardia, hypotension. Patient was admitted to [facility] from 08/24 to 08/28 after a mechanical fall resulting in a left ankle fracture, she has nonweightbearing status and went to [facility] and then to [facility] earlier this week. She still having difficulty with ambulating. #recurrent UTI/Sepsis - patient with persistent symptoms x5 months UA concerning for infection - 3+ LE, >50 WBC, 4+ bacteria. renal function mildly worsened Cr 1.25 -> 1.5, BUN 41. + SIRS: WBC 14.35 with neutrophil predominance, tachycardic (HR 103) - associated hypotension (71/46 on presentation) resolved - lactate negative - Sepsis fluid bolus for ideal body weight = 1568.10 - 1L NSS bolus followed by LR at 80 mL/hour on admission Deferred complete sepsis fluid bolus given tachycardia and hypotension improved by time of admission - ABX coverage with Rocephin and daptomycin (statin held) History of E. coli resistant to Bactrim + Enterococcus faecalis resistant to quinolones, tetracycline, gentamicin + MRSA via vaginal swab 08/08 - renal function mildly worsening however does not meet criteria for MARIO - IVF ordered as above - AP CT ordered - post void residuals ordered Follow blood and urine cultures - trend CBC, BMP, mag - consider referral to urology in out pt setting for cystoscopy DD includes but not limited to - interstitial cystitis, methotrexate SE, behcet's disease, Sjogren syndrome #left ankle fx/ ambulatory dysfunction/ right ankle pain - patient with mechanical fall 08/24 resulting in admission to [facility] and left ankle fracture managed conservatively, currently nonweightbearing left LE. Right ankle painankle XR revealed soft tissue swelling for acute changes. - with persistent ambulatory dysfunction PT/OT ordered Continue pain regimen Tylenol and tramadol as needed #COPD/chronic hypoxic respiratory failureuses 3L NC at baseline, stable. Continue home oxygen and inhalers #Rheumatoid arthritisdiscontinued methotrexate - last dose 09/10 #HLDhold statin with daptomycin use #hypothyroidismcontinue levothyroxine #HTNcontinue lisinopril 09/16, held 09/15 with hypotension VTE ppx: SCDs, low risk Dispo: med/tele Admission and Anticipated Discharge Date Admission Date: 09/15/25 - note admit orders placed prior to midnight History of Present Illness Chief Complaint: urinary sx Primary Care Provider: Janay Redding DO Patient is an 85-year-old female with a past medical history of recurrent UTIs, rheumatoid arthritis on methotrexate, thyroid CA, HTN, HLD. Patient presented due to several months of dysuria and increasing urinary frequency found to have a positive UA for UTI and meeting SIRs criteria with leukocytosis, tachycardia, hypotension. Patient was admitted to [facility] from 08/24 to 08/28 after a mechanical fall resulting in a left ankle fracture, she has nonweightbearing status and went to [facility] and then to [facility] earlier this week. She still having difficulty with ambulating. Patient seen at bedside with her daughter and son present. She stated she has had burning with urination for 5 months as well as needing to go to the bathroom every 30 minutes to 1 hour 24/7 even throughout the night. This has been causing significant stress to her life and she lives at home with her son is concerned about this. Patient stated she is followed with her PCP, [facility]IS [facility], urology x 1 for this. Her MIS SPECIALIST recently referred her to [facility] who did remove vaginal lesions and started her on a new cream 2x weekly which she has not yet began. 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 Patient stated that all of her symptoms started in April when she was started on methotrexate with her [facility] automatic packer operator, Dr. Alexander. They stopped this for several weeks however restarted last Monday at 4 pills instead of 5 pills. Her daughter talked with the automatic packer operator on Monday and he stated to discontinue the methotrexate and he will reeval her at her follow-up in November. Patient does endorse intermittent lower abdominal pain, nontender at time of exam, however with recurrent colitis as per the patient. She also endorses bilateral intermittent flank pain, no CVA tenderness at time of exam. Patient was admitted to [facility] from 08/24 to 08/28 after she tripped and had a mechanical fall resulting in a left ankle fracture which they managed conservatively and she is currently nonweightbearing status. She was discharged to [facility] and went to [facility] on Monday this week. She is unhappy with her care there and her family packed her things to move her out today. She was also treated for UTI with Rocephin x 1 and Omnicef x 3 days at [place], urine cultures grew E. coli resistant to Bactrim. Patient also now complaining of right foot pain as she has hardware in her right foot has been getting all of her weight on this foot. Pain has been manageable with tramadol and Tylenol as scheduled. She is due for her evening medications and wishes to be DNR/DNI status. She uses 3L NC at baseline for COPD. Allergies Allergy/AdvReac Type Severity Reaction Status Date / Time No Known Allergies Allergy Verified 09/15/25 22:51 Home Medications Medication Instructions Recorded Confirmed Type acetaminophen 325 mg tablet 650 mg (2 x 325 mg) PO QID PRN 03/22/21 09/15/25 Rx pain #10 tabs albuterol sulfate 90 mcg/actuation 2 puff inhalation Q6H PRN 04/12/22 09/15/25 Rx aerosol inhaler (Ventolin HFA) shortness of breath or wheezing #1 inhaler multivitamin (Daily Multi-Vitamin 1 tab PO QAM 02/06/23 09/15/25 History tablet) atorvastatin 20 mg tablet 20 mg PO HS #90 tabs 10/08/24 09/15/25 Rx folic acid 1 mg tablet 1 mg PO DAILY 12/06/24 09/15/25 History cholecalciferol (vitamin D3) 25 500 unit PO QAM #90 caps 12/09/24 09/15/25 Rx mcg (1,000 unit) capsule cyanocobalamin (vitamin B-12) 500 mcg PO QAM 12/09/24 09/15/25 History 1,000 mcg tablet,extended release aspirin 81 mg tablet 81 mg PO DAILY 12/16/24 09/15/25 History umeclidinium 62.5 mcg-vilanterol 1 inh inhalation DAILY #180 ea 03/04/25 1 11/15/24 Rx 25 mcg/actuation powdr for inhalation (Anoro Ellipta) lisinopril 10 mg tablet 20 mg (2 x 10 mg) PO QPM #180 tabs 04/08/25 09/15/25 Rx clobetasol 0.05 % topical cream 1 g topical DAILY #30 grams 07/16/25 09/15/25 Rx levothyroxine 125 mcg capsule 125 mcg PO DAILY 09/12/25 09/15/25 History melatonin 3 mg tablet 3 mg PO HS PRN Sleep 09/12/25 09/15/25 History methotrexate sodium 2.5 mg tablet 10 mg PO WK 09/12/25 09/15/25 History tramadol 50 mg tablet 50 mg PO Q6H PRN Pain 09/12/25 09/15/25 History imiquimod 5 % topical cream packet 1 applic topical 2XWK 09/15/25 09/15/25 History lidocaine-prilocaine 2.5 %-2.5 % 1 applic topical DIRECTED PRN 09/15/25 09/15/25 History topical cream Pain Past Med/Surg History Problem List (Updated 09/16/25 @ 12:18 by Percy Orozco MD) Ambulatory dysfunction (Acute) UTI (urinary tract infection) (Acute) Ambulatory dysfunction Ankle fracture, left (08/24/25) Acute nondisplaced fractures of the left distal fibula and medial malleolus from a fall Sepsis Recurrent UTI (urinary tract infection) Vaginal burning Condyloma acuminata Rheumatoid arthritis Thrombophlebitis/phlebitis, superficial Status post reverse total replacement of right shoulder (~04/2024) Right shoulder pain Carpal tunnel syndrome on both sides Cervical radicular pain Thyroid carcinoma 08/2023, s/p thyroidectomy - no chemo or XRT Acute respiratory failure with hypoxia Lumbar spinal stenosis due to adjacent segment disease after fusion procedure Cervical spinal stenosis due to adjacent segment disease after fusion procedure Lumbar stenosis with neurogenic claudication Low vitamin B12 level Thyroid Nodule COPD (chronic obstructive pulmonary disease) Breathing stable Carotid stenosis, bilateral (Acute) Follows with [facility] vascular surgery- 2016 duplex showed <50% stenosis to bilateral ICAs Adenomatous polyp of colon (Acute) Hyperlipidemia (Acute) Hypertension (Acute) Lumbar canal stenosis (Acute) Osteoporosis, post-menopausal (Acute) Medical History (Updated 09/16/25 @ 12:18 by Percy Orozco MD) H/O chronic ulcerative colitis Occ severe abdominal pain- no current issues Osteoarthritis of right shoulder Carpal tunnel syndrome, right SOBOE (shortness of breath on exertion) Cervical spinal stenosis [place] (hard of hearing) No hearing aids Abdominal aortic aneurysm (AAA) S/p EVAR with [employer] Endurant stent graft by 03/30/18 Follows with vascular surgery [facility] Surgical History S/P cervical disc replacement Status post cervical spinal fusion History of lumbar surgery History of ankle surgery Status post percutaneous abdominal aortic aneurysm (AAA) repair S/P lumbar spine operation H/O neck surgery H/O colonoscopy History of dental surgery S/P breast biopsy Hx of thyroidectomy History of colonoscopy Family History Mother Cerebral aneurysm Other Hypertension No family history of adverse response to anesthesia Denies family history of Ovarian cancer Prostate cancer Myocardial infarction Breast cancer Colorectal cancer Social History Smoking Status: Never smoker Tobacco Type: Cigarettes Age Started Using Tobacco: 17; Age Quit Using Tobacco: 81; packs per day: 1; Second Hand Exposure: Yes (hx); Do You Dip or Chew Tobacco: No; Hx Alcohol Use: No Hx Substance Use: No Preferred Language: Maltese Communication Ability: Effective Visual Impairment: No Limitations Hearing Ability: Normal Programmer Required: No Beliefs That Will Affect Care: None marital status: / Current Living Situation: Family Current Living Situation Comment: lives w/ son current occupational status: retired Feels Safe at Home: Yes Childhood Exposure to Second-Hand Smoke: No caffeine: Yes (coffee, ice tea occasionally, rare soda) Dental Care, Regularly: No Physical Activity Frequency: Daily Seatbelt Use: always Sunscreen Use: No Do you think of yourself as: straight/heterosexual Assistive Devices: Cane, Walker and Wheelchair Review of Systems Review of Systems: see HPI Physical Exam Physical Exam: The patient is awake, alert and oriented 3, well developed and well nourished, normocephalic and atraumatic, in no acute distress. Non-toxic appearing. HEENT- EOMI, mucous membranes dry. Hearing grossly intact. Heart-normal S1 and S2. No murmurs, rubs or gallops. Lungs-clear bilaterally, no respiratory distress, no accessory muscle use. Abdomen-normal bowel sounds and soft. No ascites noted. Non-tender. Extremities- no clubbing, cyanosis, or edema. Cast to left LE. Bandages to right medial LE. Psychiatric-normal affect. Results & Data Results & Data Vital Signs (Past 12 Hours) Vital Signs Temp Pulse Pulse Resp BP BP Pulse Ox 09/15/25 23:00 85 21 147/76 H 93 09/15/25 22:00 87 21 134/76 94 09/15/25 21:30 81 20 139/71 95 09/15/25 20:35 96 H 09/15/25 20:05 36.7 C 102 H 18 71/46 L 91 O2 Del Method O2 Flow Rate 09/15/25 23:00 Nasal Cannula 3 09/15/25 22:00 Nasal Cannula 3 09/15/25 21:30 Nasal Cannula 3 09/15/25 20:35 09/15/25 20:05 Nasal Cannula 3 ECG Additional Comments: ordered Code Status & VTE Plan Code Status dnr/dni VTE Prophylaxis Plan VTE Prophylaxis will be ordered: Yes Supervising Physician Co-Signing Physician Notes Attending addendum: I have physically seen this patient, have supervised the MANUEL's activities, and agree with the H&P unless as otherwise noted. Assessment and Plan: The patient is an 85-year-old female with past medical history of recurrent ER tract infections, RA on methotrexate, thyroid cancer, hypertension, and hyperlipidemia. She has had several months of dysuria, increasing urinary frequency, and has been treated for urinary tract infections with antibiotics. She was most recently mated to [facility] from 08/24-08/28/2025 after a mechanical fall resulting in a left ankle fracture. She has been nonweightbearing since that time, went to [facility] She continues to have ambulatory dysfunction. Sepsis due to recurrent urine tract infection- Has had recurrent symptoms and treated with antibiotics over the past 5 months Urine looks infected at this time Follow urine culture and sensitivity Starting daptomycin and ceftriaxone as noted History of E. coli resistant to Bactrim. History of Enterococcus faecalis resistant to quinolones, tetracycline and gentamicin. History of MRSA via vaginal swab. Since no recent imaging will order CT scan of abdomen and pelvis Follow serial CBC with differential, BMP and magnesium level With history of recurrent ureteric infections and pelvic discomfort in the past 5 months, underlying processes need to be looked into. CT abdomen and pelvis ordered and pending Differential including but not limited to: Interstitial cystitis, methotrexate side effect, Bechet's disease, Sjogren syndrome, others Left ankle fracture/amatory dysfunction/right ankle pain- Mechanical fall on 08/24 led to left ankle fracture, with plans from [facility] to manage conservatively PT/OT May need to have orthopedic consult here Monday Continue Tylenol and tramadol as noted for pain control COPD/chronic respiratory failure- 3 L nasal cannula at baseline. Pulse ox stable Continue home inhalers Rheumatoid arthritis Holding methotrexate Hyperlipidemia- Hold atorvastatin while on daptomycin Remaining orders and notations as noted PG Care Time/CCT Total # of Minutes Spent Total Time Spent with Patient: Total time spent is greater than 50% in coordination of care (as documented) at patient's floor/unit and/or counseling patient: Coding Level of Care Code 17197 INT INP/OBS CARE 375MIN Diagnoses Recurrent UTI (urinary tract infection) N39.0 Sepsis A41.9 Ankle fracture, left S82.892A Ambulatory dysfunction R26.2
--- NOTE | 2025-09-15 23:38 | XRay Report ---
Exam(s): XR RIGHT ANKLE, 2 views EXAM: XR Right Ankle, 2 Views CLINICAL HISTORY: Reason for exam: wound/hardware issue. TECHNIQUE: Frontal and lateral views of the right ankle. COMPARISON: No relevant prior studies available. FINDINGS: Bones/joints: There is a surgical screw and a surgical pin extending through the medial malleolus. There is a fixation plate noted along the distal fibula with surgical screws. No acute fracture. No dislocation. There are hypertrophic degenerative changes. There are calcaneal spurs. Soft tissues: There is soft tissue swelling. IMPRESSION: Soft tissue swelling. Postoperative changes. Hypertrophic degenerative changes. If further evaluation is clinically necessary, consider correlation with white blood cell scan. Electronically signed by: Hernandez Taylor MD 09/15/25 23:38 PM
[2025-09-15] MEDS: OPTIRAY 320 100ml IV ONE (23:39)
[2025-09-16] MEDS: DAPTOmycin 500 MG in SYRINGE 0 ML IV ONE (00:13)
[2025-09-16] MEDS: SODIUM CHLORIDE 0.9% 1,000 ML IV SCH (00:14)
--- NOTE | 2025-09-16 01:06 | CT Scan Report ---
Exam(s): CT ABDOMEN + PELVIS W/WO Contrast IV Amt: 93 cc opti 320 EXAM: CT Abdomen and Pelvis Without and With Intravenous Contrast CLINICAL HISTORY: Reason for exam: recurrent UTIs, sepsis. TECHNIQUE: Axial computed tomography images of the abdomen and pelvis without and with intravenous contrast. CTDI is 42.25 mGy and DLP is 1220.95 mGy-cm. Automated exposure control was utilized for the study. A dose lowering technique was utilized adhering to the principles of ALARA. CONTRAST: Patient received 93 cc opti 320 of IV contrast COMPARISON: No relevant prior studies available. FINDINGS: Lung bases: There are bibasilar areas of atelectasis. Heart is enlarged and contains coronary artery calcifications. ABDOMEN: Liver: No mass. Gallbladder and bile ducts: No calcified stones. No ductal dilation. Pancreas: No mass. No ductal dilation. Spleen: No splenomegaly. Adrenals: The left adrenal gland is unremarkable. There is a 1 cm nodule in the right adrenal gland Kidneys and ureters: There are small bilateral renal calcifications. There is bilateral hydronephrosis and hydroureters. No obstructing calculi are seen. There are rounded lucencies in both kidneys.. Stomach and bowel: The stomach is relatively decompressed. There is air and stool noted in the colon.. PELVIS: Appendix: Unremarkable CT scan appearance noted the appendix.. Bladder: The urinary bladder is distended. There is irregular thickening of the urinary bladder wall. . Reproductive: Unremarkable as visualized. ABDOMEN and PELVIS: Intraperitoneal space: . No free air. No significant fluid collection. Bones/joints: There are degenerative and postoperative changes involving the spine. There are degenerative changes in the hips.. Soft tissues: Unremarkable. Vasculature: There are atherosclerotic changes. There is a 3.1 cm aneurysm noted of the abdominal aorta. There is a patent aortobiiliac stent present.. Lymph nodes: No enlarged lymph nodes. IMPRESSION: There are small bilateral renal calcifications. There is bilateral hydronephrosis and hydroureters. No obstructing calculi are noted. There is irregular thickening noted of the urinary bladder wall. This can be seen with cystitis. There are possible bilateral renal cysts. There are 1 cm nodule in the right adrenal gland may represent an adenoma. See discussion above Electronically signed by: Hernandez Taylor MD 09/16/25 01:04 AM
[2025-09-16] MEDS ORDERED: ALBUTEROL HFA 8 GM INHALER INH PRN (01:44)
[2025-09-16] MEDS ORDERED: ONDANSETRON INJ 2 MG/ML 2 ML VIAL IV PRN (01:44)
[2025-09-16] MEDS: LACTATED RINGER'S 1,000 ML IV SCH (02:20)
[2025-09-16] MEDS: PHENAZOPYRIDINE HCL 200 MG TAB PO PRN (02:21)
[2025-09-16] MEDS: ACETAMINOPHEN 325 MG TAB PO PRN (02:21)
[2025-09-16] MEDS: MELATONIN 3 MG TAB PO PRN (02:21)
[2025-09-16 05:10] LABS: Alanine Aminotransferase 29.0 U/L (7-52); Albumin Globulin Ratio 0.8 (0.9-2); Albumin Level 2.7 gm/dl (3.4-5.0); Alkaline Phosphatase 114.0 U/L (34-104); Anion Gap 9.0 (3-11); Bilirubin,Total 0.3 mg/dl (0.2-1.0); Blood Urea Nitrogen 35.0 mg/dl (6-23); Calcium 8.1 mg/dl (8.6-10.3); Carbon Dioxide 21.0 mmol/L (21-32); Chloride 104.0 mmol/L (98-107); Creatinine Clr Calc Pharmacy 33.4 ml/min; Globulin 3.2 gm/dl (2.5-4.0); Glucose 113.0 mg/dl (70-99(Fasting)); Magnesium 1.8 mg/dl (1.7-2.4); Potassium 4.7 mmol/L (3.5-5.1); Sodium 134.0 mmol/L (136-145); Total Protein 5.9 gm/dl (6.0-8.3)
[2025-09-16 05:14] LABS: Hematocrit (blood only) 31.6 % (37.0-47.0); Hemoglobin 10.3 g/dl (12.0-16.0); Mean Corpuscular Hemoglobin 33.3 pg (25.0-34.0); Mean Corpuscular Volume 102.3 fL (80.0-100.0); Platelet Count 220 K/uL (130-400); RDW Standard Deviation 58.9 fL (36.4-46.3); Red Blood Count 3.09 M/uL (4.20-5.40); White Blood Count 13.76 K/ul (4.8-10.8)
[2025-09-16 05:15] LABS: Immature Granulocytes # (auto) 0.06 K/uL (0.01-0.20); Immature Granulocytes % (auto) 0.4 %; Polychromasia 1+
[2025-09-16] MEDS: LEVOTHYROXINE SODIUM 125 MCG TABLET PO SCH (06:05)
[2025-09-16] MEDS: ASPIRIN 81 MG ECTAB PO SCH (08:04)
[2025-09-16] MEDS: UMECLIDINIUM/VILANTEROL 62.5/25MCG 7 PUFFS/INHALER INH SCH (08:04)
--- NOTE | 2025-09-16 12:01 | Electrocardiogram Report ---
Test Reason : Blood Pressure : */* mmHG Vent. Rate : 77 BPM Atrial Rate : 77 BPM P-R Int : 134 ms QRS Dur : 72 ms QT Int : 368 ms P-R-T Axes : 54 11 73 degrees QTcB Int : 416 ms Normal sinus rhythm Normal ECG When compared with ECG of 21-Mar-2024 14:09, Questionable change in QRS axis Confirmed by Anson Merino ([id number]) on 09/16/2025 12:01:29 PM Referred By: REFERRED SELF Confirmed By: Anson Merino
[2025-09-16] MEDS: cefTRIAXone SODIUM 1,000 MG/50 ML BAG IV SCH (21:09)
--- NOTE | 2025-09-16 23:19 | Hospitalist Progress Note ---
Date of Service September 16, 2025 Assessment & Plan (1) Recurrent UTI (urinary tract infection): (2) Sepsis: (3) Ankle fracture, left: (4) Ambulatory dysfunction: Plan Patient is an 85-year-old female with a past medical history of recurrent UTIs, rheumatoid arthritis on methotrexate, thyroid CA, HTN, HLD. Patient presented due to several months of dysuria and increasing urinary frequency found to have a positive UA for UTI and meeting SIRs criteria with leukocytosis, tachycardia, hypotension. Patient was admitted to [facility] from 08/24 to 08/28 after a mechanical fall resulting in a left ankle fracture, she has nonweightbearing status and went to [facility] and then to [facility] earlier this week. She still having difficulty with ambulating. #recurrent UTI/ possible Sepsis (no definitive source currently) - patient with persistent symptoms x5 months UA concerning for infection - 3+ LE, >50 WBC, 4+ bacteria. renal function mildly worsened Cr 1.25 -> 1.5, BUN 41. + SIRS: WBC 14.35 with neutrophil predominance, tachycardic (HR 103) - associated hypotension (71/46 on presentation) resolved - lactate negative - Sepsis fluid bolus for ideal body weight = 1568.10 - 1L NSS bolus followed by LR at 80 mL/hour on admission Deferred complete sepsis fluid bolus given tachycardia and hypotension improved by time of admission with normal lactate - ABX coverage with Rocephin and daptomycin (statin held) History of E. coli resistant to Bactrim + Enterococcus faecalis resistant to quinolones, tetracycline, gentamicin + MRSA via vaginal swab 08/08, current urine culture pending Although longer term dysuria unlikely a UTI (consider repeat GILL NET STRINGER/urolgoy review if dysuria not improving): DD includes but not limited to - interstitial cystitis, vaginitis, dermatitis, vulvodynia, methotrexate SE, behcet's disease, Sjogren syndrome #left ankle fx/ ambulatory dysfunction/ right ankle pain - patient with mechanical fall 08/24 resulting in admission to [facility] and left ankle fracture managed conservatively, currently nonweightbearing left LE. Right ankle painankle XR revealed soft tissue swelling for acute changes. - with persistent ambulatory dysfunction PT/OT ordered Continue pain regimen Tylenol and tramadol as needed #COPD/chronic hypoxic respiratory failureuses 3L NC at baseline, stable. Continue home oxygen and inhalers #Rheumatoid arthritisdiscontinued methotrexate - last dose 09/10 #HLDhold statin with daptomycin use #hypothyroidismcontinue levothyroxine #HTNcontinue lisinopril 09/16, held 09/15 with hypotension VTE Prophylaxis - Lovenox 40mg SQ daily (left leg in cast puts her at high risk of DVT) Disposition - continue on med/tele Admission and Anticipated Discharge Date Admission Date: September 15, 2025 Subjective Ongoing dysuria. No change in this with antibiotics so far. Ongoing for 5 months. She thinks it might be due to methotrexate but appears she has been on this for at least the last year but [facility] Physical Exam Respiratory: normal respiratory effort, lungs clear to auscultation Cardiovascular: RRR, no murmur, no edema Gastrointestinal (Abdomen): Percussion/Palpation: + abdomen tender (Suprapubic) and abdomen soft; no guarding and abdomen not rigid Genitourinary: no CVA tenderness Results & Data Results & Data Vital Signs (Past 12 Hours) Vital Signs Temp Pulse Pulse Pulse Resp BP Pulse Ox 09/16/25 22:37 36.7 C 82 18 112/65 91 09/16/25 20:00 09/16/25 19:56 37.6 C H 87 20 169/72 H 90 09/16/25 15:48 09/16/25 15:33 37.2 C 85 16 126/60 94 09/16/25 15:24 88 09/16/25 14:54 88 21 158/82 H 96 O2 Del Method O2 Flow Rate 09/16/25 22:37 Nasal Cannula 3 09/16/25 20:00 Nasal Cannula 3 09/16/25 19:56 Nasal Cannula 3 09/16/25 15:48 Nasal Cannula 3 09/16/25 15:33 Nasal Cannula 3 09/16/25 15:24 09/16/25 14:54 Room Air, Nasal Cannula 3 PG Care Time/CCT Total # of Minutes Spent Total Time Spent with Patient: Total time spent is greater than 50% in coordination of care (as documented) at patient's floor/unit and/or counseling patient: Coding Level of Care Code 46582 SUB INP/OBS CARE 2/35MIN Diagnoses Recurrent UTI (urinary tract infection) N39.0 Sepsis A41.9 Ankle fracture, left S82.154P Ambulatory dysfunction R26.2
[2025-09-17] MEDS: HYDROmorphone INJ 0.5 MG/0.5 ML SYR IV STA (04:51)
[2025-09-17] MEDS: ENOXAPARIN INJ 40 MG/0.4 ML SYR SQ SCH (09:41)
--- NOTE | 2025-09-17 10:41 | Urology Consultation ---
Date of Consultation September 17, 2025 Assessment & Plan (1) Recurrent UTI (urinary tract infection): 85-year-old female with history of recurrent UTIs and dysuria admitted for suspected UTI and meeting SIRS criteria. Urology is consulted for recurrent UTIs, bilateral hydronephrosis Patient afebrile with stable vitals Labs today reviewedcreatinine 1.18, WBC 13.76, hemoglobin 10.3 Urine culture 11/3 prelim with pinpoint growth present Blood cultures prelim with no growth for 24 hours Recommend continue with broad-spectrum antibiotics and narrow per sensitivity data when available CT abdomen pelvis reviewed and discussed with patient Recommend placement of Paz catheter for decompression given bilateral hydronephrosis and she is agreeable We discussed further work-up with cystoscopy, which can be performed as an outpatient She can follow-up with her established urologist at [facility] or follow-up with our practice if desired Urology will sign off, please contact our service with any additional questions or concerns History of Present Illness Reason for Consultation: recurrent UTIs, b/l hydro, LUTS Attending Physician: Norberto Tidwell MD History of Present Illness This is an 85-year-old female with past medical history of rheumatoid arthritis, thyroid cancer, hypertension, hyperlipidemia and history of recurrent UTIs and incomplete emptying. She presented to the emergency department on 09/15/2025 for evaluation of acute on chronic dysuria worsening over the previous 1 to 2 days. On arrival to ED, she was afebrile, initially tachycardic and hypotensive. Lab work showed white count of 13.76, hemoglobin 10.3, creatinine 1.18, sodium 134. Urinalysis with 3+ blood, 3+ LE, >50 WBC, 11-20 RBC, 3-5 epithelial cells and 4+ bacteria. Workup included CT abdomen pelvis which showed small bilateral renal calcifications, bilateral hydronephrosis and hydroureters. No obstructing calculi seen. Bladder appears distended with irregular thickening of the urinary bladder wall. She was admitted to the hospital medicine service for UTI and meeting SIRS criteria. Urology is consulted for recurrent UTIs, bilateral hydronephrosis. Patient seen and examined at bedside this morning. She is awake and resting in bed. She reports external catheter was in place since arrival, but recently removed. No flank pain. She has had dysuria for several months. Acutely worsened a few days ago and has improved since admission. No gross hematuria. No fever or chills. She has urinary frequency and incontinence. Per urology and clasp machine operator notes, she has been given topical estrogen cream and clobetasol. She reports that topical agents have made her symptoms worse. She has not had a cystoscopy since her symptoms started. She has followed with [facility] urology. She had a Paz placed in June due to elevated PVRs. She reports her Paz was removed after approximately 2 days due to dysuria. Allergies Allergy/AdvReac Type Severity Reaction Status Date / Time No Known Allergies Allergy Verified 09/15/25 22:51 Home Medications Medication Instructions Recorded Confirmed Type acetaminophen 325 mg tablet 650 mg (2 x 325 mg) PO QID PRN 03/22/21 09/15/25 Rx pain #10 tabs albuterol sulfate 90 mcg/actuation 2 puff inhalation Q6H PRN 04/12/22 09/15/25 Rx aerosol inhaler (Ventolin HFA) shortness of breath or wheezing #1 inhaler multivitamin (Daily Multi-Vitamin 1 tab PO QAM 02/06/23 09/15/25 History tablet) atorvastatin 20 mg tablet 20 mg PO HS #90 tabs 10/08/24 09/15/25 Rx folic acid 1 mg tablet 1 mg PO DAILY 12/06/24 09/15/25 History cholecalciferol (vitamin D3) 25 500 unit PO QAM #90 caps 12/09/24 09/15/25 Rx mcg (1,000 unit) capsule cyanocobalamin (vitamin B-12) 500 mcg PO QAM 12/09/24 09/15/25 History 1,000 mcg tablet,extended release aspirin 81 mg tablet 81 mg PO DAILY 12/16/24 09/15/25 History umeclidinium 62.5 mcg-vilanterol 1 inh inhalation DAILY #180 ea 03/04/25 09/15/25 Rx 25 mcg/actuation powdr for inhalation (Anoro Ellipta) lisinopril 10 mg tablet 20 mg (2 x 10 mg) PO QPM #180 tabs 04/08/25 09/15/25 Rx clobetasol 0.05 % topical cream 1 g topical DAILY #30 grams 07/16/25 09/15/25 Rx levothyroxine 125 mcg capsule 125 mcg PO DAILY 09/12/25 09/15/25 History melatonin 3 mg tablet 3 mg PO HS PRN Sleep 09/12/25 09/15/25 History methotrexate sodium 2.5 mg tablet 10 mg PO WK 09/12/25 09/15/25 History tramadol 50 mg tablet 50 mg PO Q6H PRN Pain 09/12/25 09/15/25 History imiquimod 5 % topical cream packet 1 applic topical 2XWK 09/15/25 09/15/25 History lidocaine-prilocaine 2.5 %-2.5 % 1 applic topical DIRECTED PRN 09/15/25 09/15/25 History topical cream Pain Patient History Medical History H/O chronic ulcerative colitis Occ severe abdominal pain- no current issues Osteoarthritis of right shoulder Carpal tunnel syndrome, right SOBOE (shortness of breath on exertion) Cervical spinal stenosis [place] (hard of hearing) No hearing aids Abdominal aortic aneurysm (AAA) S/p EVAR with [employer] Endurant stent graft by 03/30/18 Follows with vascular surgery [facility] Surgical History S/P cervical disc replacement Status post cervical spinal fusion History of lumbar surgery History of ankle surgery right Status post percutaneous abdominal aortic aneurysm (AAA) repair S/P lumbar spine operation H/O neck surgery H/O colonoscopy History of dental surgery S/P breast biopsy right Hx of thyroidectomy [facility] ~12/2023 History of colonoscopy Family History Mother Cerebral aneurysm Other Hypertension No family history of adverse response to anesthesia Denies family history of Ovarian cancer Prostate cancer Myocardial infarction Breast cancer Colorectal cancer Social History Smoking Status: Never smoker Tobacco Type: Cigarettes Age Started Using Tobacco: 17; Age Quit Using Tobacco: 81; packs per day: 1; Second Hand Exposure: Yes (hx); Do You Dip or Chew Tobacco: No; Hx Alcohol Use: No Hx Substance Use: No Preferred Language: Slovak Communication Ability: Effective Visual Impairment: No Limitations Hearing Ability: Normal Residence Leasing Agent Required: No Beliefs That Will Affect Care: None marital status: / Current Living Situation: Family Current Living Situation Comment: lives w/ son current occupational status: retired Feels Safe at Home: Yes Childhood Exposure to Second-Hand Smoke: No caffeine: Yes (coffee, ice tea occasionally, rare soda) Dental Care, Regularly: No Physical Activity Frequency: Daily Seatbelt Use: always Sunscreen Use: No Do you think of yourself as: straight/heterosexual Assistive Devices: Cane, Walker and Wheelchair Review of Systems Review of Systems: All systems reviewed & are unremarkable except as noted in HPI & below Physical Exam Constitutional: no acute distress Respiratory: normal respiratory effort; no respiratory distress and no labored breathing Gastrointestinal (Abdomen): Inspection/Auscultation: abdomen normal to inspection Musculoskeletal: Head/Neck/Chest: normocephalic Neurologic: moves all extremities and awake Psychiatric: Orientation: alert and oriented x 3 Results & Data Vital Signs (Past 12 Hours) Vital Signs Temp Pulse Pulse Resp BP Pulse Ox O2 Del Method 09/17/25 10:35 36.7 C 71 16 110/67 94 Room Air 09/17/25 07:49 36.5 C 67 16 114/65 93 Nasal Cannula 09/17/25 07:00 70 09/17/25 02:31 36.9 C 80 18 147/73 H 91 Nasal Cannula 09/16/25 23:00 75 O2 Flow Rate 09/17/25 10:35 09/17/25 07:49 3 09/17/25 07:00 09/17/25 02:31 3 09/16/25 23:00 PG Care Time/CCT Total # of Minutes Spent Total Time Spent with Patient: Total time spent is greater than 50% in coordination of care (as documented) at patient's floor/unit and/or counseling patient: Coding Level of Care Code 55243 INT INP/OBS CARE 2/55MIN Diagnoses Recurrent UTI (urinary tract infection) N39.0
[2025-09-17] MEDS: PHENAZOPYRIDINE HCL 200 MG TAB PO SCH (19:23)
[2025-09-17] MEDS: VIBEGRON 75 MG TAB PO SCH (19:23)
[2025-09-17] MEDS: PREMARIN VAG CRM 14 APPLN/30 GM TUBE PV SCH (19:25)
--- NOTE | 2025-09-17 20:57 | Hospitalist Progress Note ---
Date of Service September 17, 2025 Assessment & Plan (1) Recurrent UTI (urinary tract infection): (2) Sepsis: (3) Ankle fracture, left: (4) Ambulatory dysfunction: (5) Hydronephrosis: (6) Hydroureter: (7) Chronic hypoxic respiratory failure: (8) Rheumatoid arthritis: (9) COPD (chronic obstructive pulmonary disease): (10) Hypertension: (11) Atrophic vaginitis: (12) Hypothyroidism: Plan Patient is an 85-year-old female with a past medical history of recurrent UTIs, rheumatoid arthritis on methotrexate, thyroid CA, HTN, HLD. Patient presented due to several months of dysuria and increasing urinary frequency found to have a positive UA for UTI and meeting SIRs criteria with leukocytosis, tachycardia, hypotension. Patient was admitted to [facility] from 08/24 to 08/28 after a mechanical fall resulting in a left ankle fracture, she has nonweightbearing status and went to [facility] and then to [facility] earlier this week. She still having difficulty with ambulating. #recurrent UTI/Sepsis - -2nd to enterococcus -can stop rocephin; cont daptomycin -for severe bladder spasm - start vibregron daily -for severe bladder pain and dysuria - pyridium scheduled TID -for urethral pain - lidocaine jelly prn #atrophic vaginitis - -start estrogen cream 3 days/week to vagina at HS #recent MRSA vaginitis - -received course of PO doxy for such per pharmacy records -daptomycin for the enterococcus will cover MRSA if playing any role #h/o urinary retention, CT a/p this admission with hydroureter and hydronephrosis - -suggestive of chronic incomplete bladder emptying / retention -can't rule out other causes -needs cysto - can be done as outpatient per [facility] Urology consult today #left ankle fx/ ambulatory dysfunction - patient with mechanical fall 08/24 resulting in admission to [facility] and left ankle fracture managed conservatively, currently nonweightbearing left LE. PT/OT Tylenol - schedule TID -Tramadol prn #COPD/chronic hypoxic respiratory failureuses 3L NC at baseline, stable. Continue home oxygen and inhalers #Rheumatoid arthritisdiscontinued methotrexate recently due to recurrent infections- last dose 09/10 -follows with [facility] Rheum -no RA flare on exam today #Hyperlipidemiahold statin while on daptomycin IV #hypothyroidismcontinue levothyroxine -TSH 0.4 in early 2024 -consider repeat level while here #HTNcontinue lisinopril #MARIO - -presenting Cr 1.5 -improved Cr yesterday of 1.1 -BMP am -cervantes placed today VTE Prophylaxis - Lovenox 40mg SQ daily PT, OT while here daughter updated at bedside Admission and Anticipated Discharge Date Admission Date: September 15, 2025 Subjective c/o severe dysuria and severe bladder pain/spasm ultimately had cervantes placed today during my visit pt's daughter was present at bedside daughter reports she was seen via the [facility] system for recent removal of genital warts and was prescribed aldara cream they were also prescribed estrogen cream at some point but haven't had opportunity to start it yet was recently taken off Methotrexate by her [facility] wire mesh gate assembler about 1-2 weeks ago - had been taking such for the last 5 months for her RA denies joint swelling at this time back in June 2025 when [facility] placed a cervantes in the office for PVR nearly 900cc she only had the catheter for about 2-3 days (she was residing in [facility] at that time) Review of Systems Review of Systems: gen - no fevers cv - no cp pulm - no dyspnea at rest GI - no abd pain but having some lower bladder pain Physical Exam Physical Exam: gen - uncomfortable, but pleasant, awake/alert mouth - MMM neck - no JVD heart - RRR, s1 s2 lungs - CTA b/l abd - soft, ND, BS+, no HSM, mildly tender suprapubic region - cervantes in place with severely purulent urine and orange color (from pyridium) ext - no edema, pulses 2+ b/l feet musculo - no active synovitis of small or large joint upper or lower limbs; 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 09/15/25 23:06 Blood Anaerobic Blood Culture - Preliminary No growth in Anaerobic bottle after 48 hours. 09/15/25 23:00 Blood Aerobic Blood Culture - Preliminary No growth in Aerobic bottle after 48 hours. 09/15/25 23:00 Blood Anaerobic Blood Culture - Preliminary No growth in Anaerobic bottle after 48 hours. 09/15/25 20:39 Urine,Clean Catch Urine Culture - Preliminary Enterococcus faecalis PG Care Time/CCT Total # of Minutes Spent Total Time Spent with Patient: Total time spent is greater than 50% in coordination of care (as documented) at patient's floor/unit and/or counseling patient: Coding Level of Care Code 14796 SUB INP/OBS CARE 3/50MIN Diagnoses Recurrent UTI (urinary tract infection) N39.0 Sepsis A41.9 Ankle fracture, left S82.892A Ambulatory dysfunction R26.2 Hydronephrosis N13.30 Hydroureter N13.4 Chronic hypoxic respiratory failure J96.11 Rheumatoid arthritis M06.9 COPD (chronic obstructive pulmonary disease) J44.9 Hypertension I10 Atrophic vaginitis N95.2 Hypothyroidism E03.9
[2025-09-17] MEDS: DAPTOmycin 500 MG in SYRINGE 0 ML IV SCH (21:27)
[2025-09-18 09:47] LABS: Hematocrit (blood only) 32.9 % (37.0-47.0); Hemoglobin 10.9 g/dl (12.0-16.0); Mean Corpuscular Hemoglobin 33.9 pg (25.0-34.0); Mean Corpuscular Volume 102.2 fL (80.0-100.0); Platelet Count 283 K/uL (130-400); RDW Standard Deviation 57.1 fL (36.4-46.3); Red Blood Count 3.22 M/uL (4.20-5.40); White Blood Count 15.97 K/ul (4.8-10.8)
[2025-09-18 09:58] LABS: Anion Gap 10.0 (3-11); Blood Urea Nitrogen 29.0 mg/dl (6-23); Calcium 8.2 mg/dl (8.6-10.3); Carbon Dioxide 22.0 mmol/L (21-32); Chloride 101.0 mmol/L (98-107); Creatinine Clr Calc Pharmacy 38.8 ml/min; Glucose 122.0 mg/dl (70-99(Fasting)); Potassium 4.0 mmol/L (3.5-5.1); Sodium 133.0 mmol/L (136-145)
[2025-09-18] MEDS: ACETAMINOPHEN 500 MG TAB PO SCH (13:39)
[2025-09-18] MEDS: LIDOCAINE 2% JELLY 5 ML TUBE EXT PRN (13:40)
[2025-09-18] MEDS: COUGH DROP (SUGAR FREE) LOZ 24 LOZ/1 BOX BUCCAL PRN (16:23)
[2025-09-18] MEDS: BENZONATATE 100 MG CAPSULE PO SCH (16:23)
--- NOTE | 2025-09-18 18:01 | XRay Report ---
EXAM: X-ray chest one-view portable CLINICAL HISTORY: Leukocytosis, cough PRIORS: Plain film 04/17/2025, CT same day TECHNIQUE: Frontal view chest FINDINGS: Chest is hyperexpanded with pulmonary emphysema present. No confluent opacification. Bilateral pleural effusions present versus compressive atelectasis. Cardiac silhouette is enlarged. Atherosclerotic disease of the aortic knob. No pneumothorax. Trachea is patent. Osseous structures demonstrate no acute abnormality. Right total shoulder arthroplasty in the [id number]. No radiopaque foreign body. IMPRESSION: Pulmonary emphysema with bibasilar pleural effusions or atelectasis. ACT 112: Positive. There are findings on this examination that require communication between the performing entity and the patient following Patient Test Result Information Act ([place] ACT 112) guidelines. Electronically signed by Debora Devi 09-18-2025 6:01 PM
--- NOTE | 2025-09-18 18:47 | Hospitalist Progress Note ---
Date of Service September 18, 2025 Assessment & Plan (1) Recurrent UTI (urinary tract infection): (2) Sepsis: (3) Ankle fracture, left: (4) Ambulatory dysfunction: (5) Hydronephrosis: (6) Hydroureter: (7) Chronic hypoxic respiratory failure: (8) Rheumatoid arthritis: (9) COPD (chronic obstructive pulmonary disease): (10) Hypertension: (11) Atrophic vaginitis: (12) Hypothyroidism: Plan Patient is an 85-year-old female with a past medical history of recurrent UTIs, rheumatoid arthritis on methotrexate, thyroid CA, HTN, HLD. Patient presented due to several months of dysuria and increasing urinary frequency found to have a positive UA for UTI and meeting SIRs criteria with leukocytosis, tachycardia, hypotension. Patient was admitted to [facility] from 08/24 to 08/28 after a mechanical fall resulting in a left ankle fracture, she has nonweightbearing status and went to [facility] and then to [facility] earlier this week. She still having difficulty with ambulating. #recurrent UTI/Sepsis - -2nd to enterococcus, sens to ampicillin -can stop daptomycin --> change to IV ampicillin -for severe bladder spasm - cont vibregron daily -for severe bladder pain and dysuria - cont pyridium scheduled TID -for urethral pain - lidocaine jelly prn #atrophic vaginitis - -estrogen cream 3 days/week to vagina at HS #recent MRSA vaginitis - -received course of PO doxy for such per pharmacy records -per nursing staff, when cervantes was placed, no vaginal discharge noted #h/o urinary retention, CT a/p this admission with hydroureter and hydronephrosis - -suggestive of chronic incomplete bladder emptying / retention -can't rule out other causes -needs cysto - can be done as outpatient per [facility] U[facility] -patient can f/u with [facility] (saw them in June 2025) or [facility] Urology - will defer to patient & her preference #left ankle fx/ ambulatory dysfunction - patient with mechanical fall 08/24 resulting in admission to [facility] and left ankle fracture managed conservatively, currently nonweightbearing left LE. PT/OT Tylenol - schedule TID -Tramadol prn #COPD/chronic hypoxic respiratory failureuses 3L NC at baseline, stable. -continue home oxygen and inhalers -cxr obtained today - no pneumonia -for cough - tessalon 100mg TID #Rheumatoid arthritisdiscontinued methotrexate recently due to recurrent infections- last dose 09/10 -follows with [facility] -no RA flare on exam -Mtx typically does not cause vaginal or vulvar issues #Hyperlipidemia -can resume statin since dapto is being stopped #hypothyroidismcontinue levothyroxine -TSH 0.4 in early 2024 -consider repeat level while here #HTNcontinue lisinopril #MARIO - -presenting Cr 1.5 -improved Cr - now 1 -BMP am for stability VTE Prophylaxis - Lovenox 40mg SQ daily PT, OT while here daughter updated at bedside 09/17 Admission and Anticipated Discharge Date Admission Date: September 15, 2025 Subjective has cough but this is chronic no significant difference from baseline no dyspnea at rest bladder pain & dysuria MUCH improved today she is much more comfortable feels better overall today good appetite Review of Systems Review of Systems: CV - no cp, no orthopnea, no edema pulm - cough (see above) GI - no N/V; last stool?? Physical Exam Physical Exam: gen - looks MUCH better today, NAD, lying comfortably in bed mouth - MMM neck - no JVD heart - RRR, s1 s2, no murmur lungs - CTA b/l, no rales or wheeze abd - soft, ND, BS+, no HSM, NT - cervantes in place, urine more clear today/less purulent appearing ext - no edema, left ankle/foot in cast, pulses R foot 2+ psych - a/o x 3 Results & Data Results & Data Vital Signs (Past 12 Hours) Vital Signs Temp Pulse Pulse Resp BP Pulse Ox O2 Del Method 09/18/25 13:12 95 H 09/18/25 11:07 36.3 C L 94 H 20 94/61 L 93 Nasal Cannula 09/18/25 09:22 Nasal Cannula 09/18/25 07:19 36.7 C 79 20 106/66 94 Nasal Cannula O2 Flow Rate 09/18/25 13:12 09/18/25 11:07 3 09/18/25 09:22 3 09/18/25 07:19 3 Laboratory Results Laboratory Results 09/18/25 08:55 WBC 15.97 H RBC 3.22 L Hgb 10.9 L Hct 32.9 L MCV 102.2 H MCH 33.9 MCHC 33.1 RDW Std Deviation 57.1 H RDW Coeff of [place] 15.4 H Plt Count 283 MPV 9.1 L Sodium 133 L Potassium 4.0 Chloride 101 Carbon Dioxide 22 Anion Gap 10 BUN 29 H Creatinine 1.01 Est Cr Clr Drug Dosing 38.8 eGFR 55.24 BUN/Creatinine Ratio 28.7 H Glucose 122 H Calcium 8.2 L Diagnostic Findings Microbiology 09/15/25 20:39 Urine,Clean Catch Urine Culture - Final Enterococcus faecalis 09/15/25 23:06 Blood Aerobic Blood Culture - Preliminary No growth in Aerobic bottle after 48 hours. 09/15/25 23:06 Blood Anaerobic Blood Culture - Preliminary No growth in Anaerobic bottle after 48 hours. 09/15/25 23:00 Blood Aerobic Blood Culture - Preliminary No growth in Aerobic bottle after 48 hours. 09/15/25 23:00 Blood Anaerobic Blood Culture - Preliminary No growth in Anaerobic bottle after 48 hours. PG Care Time/CCT Total # of Minutes Spent Total Time Spent with Patient: Total time spent is greater than 50% in coordination of care (as documented) at patient's floor/unit and/or counseling patient: Coding Level of Care Code 90503 SUB INP/OBS CARE 2/35MIN Diagnoses Recurrent UTI (urinary tract infection) N39.0 Sepsis A41.9 Ankle fracture, left S82.892A Ambulatory dysfunction R26.2 Hydronephrosis N13.30 Hydroureter N13.4 Chronic hypoxic respiratory failure J96.11 Rheumatoid arthritis M06.9 COPD (chronic obstructive pulmonary disease) J44.9 Hypertension I10 Atrophic vaginitis N95.2 Hypothyroidism E03.9
[2025-09-18] MEDS: AMPICILLIN 2,000 MG in SODIUM CHLOR 0.9% MINI-B 100 ML IV SCH (19:38)
[2025-09-18] MEDS ORDERED: DAPTOmycin 500 MG in SYRINGE 0 ML IV SCH (22:00)
[2025-09-19 06:51] LABS: Hematocrit (blood only) 31.8 % (37.0-47.0); Hemoglobin 10.8 g/dl (12.0-16.0); Mean Corpuscular Hemoglobin 34.5 pg (25.0-34.0); Mean Corpuscular Volume 101.6 fL (80.0-100.0); Platelet Count 281 K/uL (130-400); RDW Standard Deviation 56.7 fL (36.4-46.3); Red Blood Count 3.13 M/uL (4.20-5.40); White Blood Count 12.55 K/ul (4.8-10.8)
[2025-09-19 07:14] LABS: Anion Gap 9.0 (3-11); Blood Urea Nitrogen 26.0 mg/dl (6-23); Calcium 8.4 mg/dl (8.6-10.3); Carbon Dioxide 22.0 mmol/L (21-32); Chloride 105.0 mmol/L (98-107); Creatinine Clr Calc Pharmacy 43.5 ml/min; Glucose 100.0 mg/dl (70-99(Fasting)); Potassium 4.2 mmol/L (3.5-5.1); Sodium 136.0 mmol/L (136-145)
[2025-09-19] MEDS: DOCUSATE SODIUM 100 MG CAP PO PRN (10:26)
[2025-09-19] MEDS: SENNA 8.6 MG TAB PO SCH (12:12)
[2025-09-19] MEDS: POLYETHYLENE (MIRALAX) 17 GM PACK PO SCH (12:12)
--- NOTE | 2025-09-19 15:55 | Hospitalist Progress Note ---
Date of Service September 19, 2025 Assessment & Plan (1) Recurrent UTI (urinary tract infection): (2) Sepsis: (3) Vulvodynia: (4) Atrophic vaginitis: (5) Ankle fracture, left: (6) Ambulatory dysfunction: (7) Hydronephrosis: (8) Hydroureter: (9) Chronic hypoxic respiratory failure: (10) Rheumatoid arthritis: (11) COPD (chronic obstructive pulmonary disease): (12) Hypertension: (13) Hypothyroidism: Plan Patient is an 85-year-old female with a past medical history of recurrent UTIs, rheumatoid arthritis on methotrexate, thyroid CA, HTN, HLD. Patient presented due to several months of dysuria and increasing urinary frequency found to have a positive UA for UTI and meeting SIRs criteria with leukocytosis, tachycardia, hypotension. Patient was admitted to [facility] from 08/24 to 08/28 after a mechanical fall resulting in a left ankle fracture, she has nonwei ghtbearing status and went to [facility] and then to [facility] earlier this week. She still having difficulty with ambulating. #recurrent UTI/Sepsis - -2nd to enterococcus, sens to ampicillin -stopped daptomycin --> changed to IV ampicillin 09/18 -today is day #5 of acceptable Rx (daptomycin and ampicillin) -for severe bladder spasm - cont vibregron daily -for severe bladder pain and dysuria - cont pyridium scheduled TID -for urethral pain - lidocaine jelly prn -vulvar/vaginal pain - see below #severe vulvodynia - -ongoing for several months despite treatment for MRSA vaginitis, candidal vaginitis, +/- atrophic vaginitis (uncertain if & when the estrogen cream was started) -per staff no vaginal discharge -despite aggressive Rx of UTIs - including the current enterococcal UTI - she continues with the vaginal/vulvar burning sensation -discussed her case with Dr Orozco from [facility] Flight Attendant/Inflight Manager who will provide formal consultation -Dr Orozco questions if some of her pain could be neurogenic in etiology -she does have known lumbar spinal stenosis per her chart -consider starting low-dose gabapentin at bedtime; benefits of gabapentin c ertainly outweight its risks -appreciate log deck tender consultation #atrophic vaginitis - -estrogen cream 3 days/week to vagina at HS #recent MRSA vaginitis - -received course of PO doxy for such per pharmacy records in late 07/2025 -per nursing staff, when cervantes was placed, no vaginal discharge noted -log deck tender consult placed -- see mede #h/o urinary retention, CT a/p this admission with hydroureter and hydronephrosis - -suggestive of chronic incomplete bladder emptying / retention -can't rule out other causes -needs cysto - can be done as outpatient per [facility] U[facility] -patient can f/u with [facility] (saw them in June 2025) or [facility] - will defer to patient & her preference #left ankle fx/ ambulatory dysfunction - patient with mechanical fall 08/24 resulting in admission to [facility] and left ankle fracture managed conservatively, currently nonweightbearing left LE. PT/OT Tylenol - schedule TID -Tramadol prn #COPD/chronic hypoxic respiratory failureuses 3L NC at baseline, stable. -continue home oxygen and inhalers -cxr obtained 09/18 - no pneumonia -for cough - tessalon 100mg TID #Rheumatoid arthritisdiscontinued methotrexate recently due to recurrent infections- last dose 09/10 -follows with [facility] Rheum -no RA flare on exam -Mtx typically does not cause vaginal or vulvar issues #Hyperlipidemia -can resume lipitor since dapto has been stopped #hypothyroidismcontinue levothyroxine -TSH 0.4 in early 2024 -consider repeat level while here #HTNcontinue lisinopril #MARIO - -presenting Cr 1.5 -improved Cr - now 0.9 -BMP am for stability VTE Prophylaxis - Lovenox 40mg SQ daily PT, OT while here needs ongoing rehab post-d/c --> to [place] after this hospitalization daughter updated at bedside 09/17 will update daughter again this weekend Admission and Anticipated Discharge Date Admission Date: September 15, 2025 Subjective patient still c/o vaginal and vulvar "burning" denies bladder pain/spasm today reports that when she tries to sit the vulvar/vaginal burning is worse today she seemed very depressed she did not sleep well last night ate breakfast, but wasn't hungry at lunch no stool since admission plan is for [facility] at d/c social work reports they can take her this weekend Review of Systems Review of Systems: gen - no fevers or chills cv - telemetry wnl overnight; no cp pulm - no dyspnea at rest GI - no abd pain; no N/V Physical Exam Physical Exam: gen - looks depressed today; otherwise NAD mouth - MMM neck - no JVD heart - RRR, s1 s2, no murmur lungs - CTA b/l, no rales or wheeze abd - soft, ND, BS+, no HSM, NT - cervantes in place, urine again more clear/less purulent appearing ext - no edema, left ankle/foot in cast, pulses R foot 2+; cap refill < 2 sec left foot psych - a/o x 3 Results & Data Results & Data Vital Signs (Past 12 Hours) Vital Signs Temp Pulse Pulse Resp BP BP Pulse Ox 09/19/25 15:51 71 09/19/25 11:57 36.8 C 87 18 94/61 L 93 09/19/25 10:03 09/19/25 07:27 36.4 C L 74 20 106/66 94 09/19/25 07:17 76 09/19/25 04:17 36.4 C L 79 18 122/63 95 O2 Del Method O2 Flow Rate 09/19/25 15:51 09/19/25 11:57 Nasal Cannula 3 09/19/25 10:03 Nasal Cannula 3 09/19/25 07:27 Nasal Cannula 3 09/19/25 07:17 09/19/25 04:17 Nasal Cannula 3 Laboratory Results Laboratory Results 09/18/25 09/19/25 08:55 06:04 WBC 15.97 H 12.55 H RBC 3.22 L 3.13 L Hgb 10.9 L 10.8 L Hct 32.9 L 31.8 L MCV 102.2 H 101.6 H MCH 33.9 34.5 H MCHC 33.1 34.0 RDW Std Deviation 57.1 H 56.7 H RDW Coeff of [place] 15.4 H 15.2 H Plt Count 283 281 MPV 9.1 L 9.2 L Sodium 133 L 136 Potassium 4.0 4.2 Chloride 101 105 Carbon Dioxide 22 22 Anion Gap 10 9 BUN 29 H 26 H Creatinine 1.01 0.90 Est Cr Clr Drug Dosing 38.8 43.5 eGFR 55.24 63.43 BUN/Creatinine Ratio 28.7 H 28.9 H Glucose 122 H 100 H Calcium 8.2 L 8.4 L Diagnostic Findings Microbiology 09/15/25 20:39 Urine,Clean Catch Urine Culture - Final Enterococcus faecalis 09/15/25 23:06 Blood Aerobic Blood Culture - Preliminary No growth in Aerobic bottle after 48 hours. 09/15/25 23:06 Blood Anaerobic Blood Culture - Preliminary No growth in Anaerobic bottle after 48 hours. 09/15/25 23:00 Blood Aerobic Blood Culture - Preliminary No growth in Aerobic bottle after 48 hours. 09/15/25 23:00 Blood Anaerobic Blood Culture - Preliminary No growth in Anaerobic bottle after 48 hours. PG Care Time/CCT Total # of Minutes Spent Total Time Spent with Patient: Total time spent is greater than 50% in coordination of care (as documented) at patient's floor/unit and/or counseling patient: Coding Level of Care Code 04821 SUB INP/OBS CARE 3/50MIN Diagnoses Recurrent UTI (urinary tract infection) N39.0 Sepsis A41.9 Vulvodynia N94.819 Atrophic vaginitis N95.2 Ankle fracture, left S82.892A Ambulatory dysfunction R26.2 Hydronephrosis N13.30 Hydroureter N13.4 Chronic hypoxic respiratory failure J96.11 Rheumatoid arthritis M06.9 COPD (chronic obstructive pulmonary disease) J44.9 Hypertension I10 Hypothyroidism E03.9
[2025-09-19] MEDS: SODIUM CHLORIDE 0.9% 500 ML IV SCH (17:09)
--- NOTE | 2025-09-19 18:44 | OB/GYN Consultation ---
Date of Consultation September 19, 2025 Assessment & Plan (1) Vaginal burning: Discussed with pt her sx and possible etiologies. She has been seen by mail handler assistant who investigated infectious causes. She remains with burning sensation at [facility] throughout. Have posed with pt possibility related to nerves that innervate that area, poss lumbosacral compression and resultant sx of burning, not from primary mail handler assistant tissue issue. Could consider trial of gabapentin if prudent with her other meds. Have discussed such with primary team. Suggest outpt f/u [place]. Jerez [facility] [place], perhaps if gabapentin trialed in one month to see if has been of benefit OR if not trialed than office visit sooner, for reevaluation. We will be available for any further assistance ongoing, please just re-contact mail handler assistant population health coach during hospitalization. History of Present Illness Reason for Consultation: vaginal burning Requesting Physician: Dr. Weaver Attending Physician: Norberto Tidwell MD History of Present Illness 85yo who is admitted due to recurrent uti who i am asked to see on consult by Dr. Weaver for ongoing vaginal/vulvar burning. Patient notes she has significant discomfort of burning sensation of her vaginal area. No itching. No bleeding. No discharge. She has recently seen my partner Dr. Jerez in the office, see note, and treated for vaginal culture showing mrsa and during stay in [facility] was seen by their mail handler assistant team and treated with diflucan x 3, given suspected yeast after courses of abx. She said at that time she did have itching but not now. She has now started using some vaginal e2 to vulva but of note never really felt sense of dryness type of discomfort. She is not sa. She is typically continent of urine but can have some urgency at times. She currently has a cervantes and being treated for UTI and sepsis. She has RA. OBH: x 2, sab x 1 GYNH: menopause in her 50s, no hormones. not sa. All Active Problems (Updated 09/18/25 @ 10:59 by Norberto Tidwell MD) Hypothyroidism (Medical) E03.9 - Hypothyroidism, unspecified (ICD-10) Atrophic vaginitis (Medical) N95.2 - Postmenopausal atrophic vaginitis (ICD-10) Chronic hypoxic respiratory failure (Medical) J96.11 - Chronic respiratory failure with hypoxia (ICD-10) Hydroureter (Medical) N13.4 - Hydroureter (ICD-10) Hydronephrosis (Medical) N13.30 - Unspecified hydronephrosis (ICD-10) Ambulatory dysfunction (Acute Medical) R26.2 - Difficulty in walking, not elsewhere classified (ICD-10) UTI (urinary tract infection) (Acute Medical) N39.0 - Urinary tract infection, site not specified (ICD-10) Ambulatory dysfunction (Medical) R26.2 - Difficulty in walking, not elsewhere classified (ICD-10) Ankle fracture, left (Medical 08/24/25) Acute nondisplaced fractures of the left distal fibula and medial malleolus from a fall S82.892A - Other fracture of left lower leg, initial encounter for closed fracture (ICD-10) Sepsis (Medical) A41.9 - Sepsis, unspecified organism (ICD-10) Recurrent UTI (urinary tract infection) (Medical) N39.0 - Urinary tract infection, site not specified (ICD-10) Vaginal burning (Medical) N94.89 - Other specified conditions associated with female genital organs and menstrual cycle (ICD-10) Condyloma acuminata (Medical) A63.0 - Anogenital (venereal) warts (ICD-10) Rheumatoid arthritis (Medical) M06.9 - Rheumatoid arthritis, unspecified (ICD-10) Thrombophlebitis/phlebitis, superficial (Medical) I80.9 - Phlebitis and thrombophlebitis of unspecified site (ICD-10) 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) Z96.611 - Presence of right artificial shoulder joint (ICD-10) Right shoulder pain (Medical) M25.511 - Pain in right shoulder (ICD-10) Carpal tunnel syndrome on both sides (Medical) G56.03 - Carpal tunnel syndrome, bilateral upper limbs (ICD-10) Cervical radicular pain (Medical) M54.12 - Radiculopathy, cervical region (ICD-10) Thyroid carcinoma (Medical) 08/2023, s/p thyroidectomy - no chemo or XRT C73 - Malignant neoplasm of thyroid gland (ICD-10) Acute respiratory failure with hypoxia (Medical) J96.01 - Acute respiratory failure with hypoxia (ICD-10) Lumbar spinal stenosis due to adjacent segment disease after fusion procedure (Medical) M48.061 - Spinal stenosis, lumbar region without neurogenic claudication (ICD-10) M51.36 - Other intervertebral disc degeneration, lumbar region (ICD-10) Cervical spinal stenosis due to adjacent segment disease after fusion procedure (Medical) M48.02 - Spinal stenosis, cervical region (ICD-10) M50.30 - Other cervical disc degeneration, unspecified cervical region (ICD- 10) Lumbar stenosis with neurogenic claudication (Medical) M48.062 - Spinal stenosis, lumbar region with neurogenic claudication (ICD- 10) Low vitamin B12 level (Medical) E53.8 - Deficiency of other specified B group vitamins (ICD-10) Thyroid Nodule (Medical) E04.1 - Nontoxic single thyroid nodule (ICD-10) COPD (chronic obstructive pulmonary disease) (Medical) Breathing stable J44.9 - Chronic obstructive pulmonary disease, unspecified (ICD-10) Carotid stenosis, bilateral (Acute Medical) Follows with [facility] vascular surgery- 2016 duplex showed <50% stenosis to bilateral ICAs I65.23 - Occlusion and stenosis of bilateral carotid arteries (ICD-10) Adenomatous polyp of colon (Acute Medical) D12.6 - Benign neoplasm of colon, unspecified (ICD-10) Hyperlipidemia (Acute Medical) E78.5 - Hyperlipidemia, unspecified (ICD-10) Hypertension (Acute Medical) I10 - Essential (primary) hypertension (ICD-10) Lumbar canal stenosis (Acute Medical) M48.061 - Spinal stenosis, lumbar region without neurogenic claudication (ICD-10) Osteoporosis, post-menopausal (Acute Medical) M81.0 - Age-related osteoporosis without current pathological fracture (ICD- 10) Allergies Allergy/AdvReac Type Severity Reaction Status Date / Time No Known Allergies Allergy Verified 09/15/25 22:51 Home Medications Medication Instructions Recorded Confirmed Type acetaminophen 325 mg tablet 650 mg (2 x 325 mg) PO QID PRN 03/22/21 09/15/25 Rx pain #10 tabs albuterol sulfate 90 mcg/actuation 2 puff inhalation Q6H PRN 04/12/22 09/15/25 Rx aerosol inhaler (Ventolin HFA) shortness of breath or wheezing #1 inhaler multivitamin (Daily Multi-Vitamin 1 tab PO QAM 02/06/23 09/15/25 History tablet) atorvastatin 20 mg tablet 20 mg PO HS #90 tabs 10/08/24 09/15/25 Rx folic acid 1 mg tablet 1 mg PO DAILY 12/06/24 09/15/25 History cholecalciferol (vitamin D3) 25 500 unit PO QAM #90 caps 12/09/24 09/15/25 Rx mcg (1,000 unit) capsule cyanocobalamin (vitamin B-12) 500 mcg PO QAM 12/09/24 09/15/25 History 1,000 mcg tablet,extended release aspirin 81 mg tablet 81 mg PO DAILY 12/16/24 09/15/25 History umeclidinium 62.5 mcg-vilanterol 1 inh inhalation DAILY #180 ea 03/04/25 09/15/25 Rx 25 mcg/actuation powdr for inhalation (Anoro Ellipta) lisinopril 10 mg tablet 20 mg (2 x 10 mg) PO QPM #180 tabs 04/08/25 09/15/25 Rx clobetasol 0.05 % topical cream 1 g topical DAILY #30 grams 07/16/25 09/15/25 Rx levothyroxine 125 mcg capsule 125 mcg PO DAILY 09/12/25 09/15/25 History melatonin 3 mg tablet 3 mg PO HS PRN Sleep 09/12/25 09/15/25 History methotrexate sodium 2.5 mg tablet 10 mg PO WK 09/12/25 09/15/25 History tramadol 50 mg tablet 50 mg PO Q6H PRN Pain 09/12/25 09/15/25 History imiquimod 5 % topical cream packet 1 applic topical 2XWK 09/15/25 09/15/25 History lidocaine-prilocaine 2.5 %-2.5 % 1 applic topical DIRECTED PRN 09/15/25 09/15/25 History topical cream Pain Patient History Medical History H/O chronic ulcerative colitis Occ severe abdominal pain- no current issues Osteoarthritis of right shoulder Carpal tunnel syndrome, right SOBOE (shortness of breath on exertion) Cervical spinal stenosis [place] (hard of hearing) No hearing aids Abdominal aortic aneurysm (AAA) S/p EVAR with [employer] Endurant stent graft by 03/30/18 Follows with vascular surgery S Surgical History S/P cervical disc replacement Status post cervical spinal fusion History of lumbar surgery History of ankle surgery right Status post percutaneous abdominal aortic aneurysm (AAA) repair S/P lumbar spine operation H/O neck surgery H/O colonoscopy History of dental surgery S/P breast biopsy right Hx of thyroidectomy ZACKERY [facility] ~12/2023 History of colonoscopy Family History Mother Cerebral aneurysm Other Hypertension No family history of adverse response to anesthesia Denies family history of Ovarian cancer Prostate cancer Myocardial infarction Breast cancer Colorectal cancer Social History Smoking Status: Never smoker Tobacco Type: Cigarettes Age Started Using Tobacco: 17; Age Quit Using Tobacco: 81; packs per day: 1; Second Hand Exposure: Yes (hx); Do You Dip or Chew Tobacco: No; Hx Alcohol Use: No Hx Substance Use: No Preferred Language: Occitan Communication Ability: Effective Visual Impairment: No Limitations Hearing Ability: Normal Chief Gauger Required: No Beliefs That Will Affect Care: None marital status: / Current Living Situation: Family Current Living Situation Comment: lives w/ son current occupational status: retired Feels Safe at Home: Yes Childhood Exposure to Second-Hand Smoke: No caffeine: Yes (coffee, ice tea occasionally, rare soda) Dental Care, Regularly: No Physical Activity Frequency: Daily Seatbelt Use: always Sunscreen Use: No Do you think of yourself as: straight/heterosexual Assistive Devices: Cane, Walker and Wheelchair Review of Systems Constitutional: as per Subjective / HPI Physical Exam Constitutional: WD/WN, vitals as above Musculoskeletal: cast on left LE Neurologic: grossly normal Psychiatric: A+Ox3, euthymic affect Genitourinary: + abnormal external appearance (some atr ophy. no white change. b/l symmetric erythema, no dc noted. ) Results & Data Vital Signs (Past 12 Hours) Vital Signs Temp Pulse Pulse Resp BP Pulse Ox O2 Del Method 09/19/25 15:51 71 09/19/25 11:57 98.2 F 87 18 94/61 L 93 Nasal Cannula 09/19/25 10:03 Nasal Cannula 09/19/25 07:27 97.5 F L 74 20 106/66 94 Nasal Cannula 09/19/25 07:17 76 O2 Flow Rate 09/19/25 15:51 09/19/25 11:57 3 09/19/25 10:03 3 09/19/25 07:27 3 09/19/25 07:17 PG Care Time/CCT Total # of Minutes Spent Total Time Spent with Patient: Total time spent is greater than 50% in coordination of care (as documented) at patient's floor/unit and/or counseling patient: Coding Level of Care Code 36613 INT INP/OBS CARE 1/40MIN Diagnoses Vaginal burning N94.89
[2025-09-19] MEDS: GABAPENTIN 100 MG CAP PO SCH (21:23)
[2025-09-20 07:17] LABS: Hematocrit (blood only) 30.9 % (37.0-47.0); Hemoglobin 10.3 g/dl (12.0-16.0); Mean Corpuscular Hemoglobin 34.7 pg (25.0-34.0); Mean Corpuscular Volume 104.0 fL (80.0-100.0); Platelet Count 301 K/uL (130-400); RDW Standard Deviation 57.1 fL (36.4-46.3); Red Blood Count 2.97 M/uL (4.20-5.40); White Blood Count 11.40 K/ul (4.8-10.8)
[2025-09-20 07:35] LABS: Anion Gap 6.0 (3-11); Blood Urea Nitrogen 25.0 mg/dl (6-23); Calcium 8.2 mg/dl (8.6-10.3); Carbon Dioxide 26.0 mmol/L (21-32); Chloride 105.0 mmol/L (98-107); Creatinine Clr Calc Pharmacy 42.7 ml/min; Glucose 92.0 mg/dl (70-99(Fasting)); Potassium 4.7 mmol/L (3.5-5.1); Sodium 137.0 mmol/L (136-145)
[2025-09-20 09:53] LABS: Thyroid Stimulating Hormone 2.424 uIu/ml (0.300-4.500)
--- NOTE | 2025-09-20 19:36 | Hospitalist Progress Note ---
Date of Service September 20, 2025 Assessment & Plan (1) Recurrent UTI (urinary tract infection): (2) Sepsis: (3) Vulvodynia: (4) Atrophic vaginitis: (5) Ankle fracture, left: (6) Ambulatory dysfunction: (7) Hydronephrosis: (8) Hydroureter: (9) Chronic hypoxic respiratory failure: (10) Rheumatoid arthritis: (11) COPD (chronic obstructive pulmonary disease): (12) Hypertension: (13) Hypothyroidism: Plan Patient is an 85-year-old female with a past medical history of recurrent UTIs, rheumatoid arthritis on methotrexate, thyroid CA, HTN, HLD. Patient presented due to several months of dysuria and increasing urinary frequency found to have a positive UA for UTI and meeting SIRs criteria with leukocytosis, tachycardia, hypotension. Patient was admitted to [facility] from 08/24 to 08/28 after a mechanical fall resulting in a left ankle fracture, she has nonwei ghtbearing status and went to [facility] and then to [facility] earlier this week. #recurrent UTI/Sepsis - -2nd to enterococcus, sens to ampicillin -stopped daptomycin --> changed to IV ampicillin 09/18 -today is day #6 of acceptable Rx (daptomycin and ampicillin) -for severe bladder spasm - cont vibregron daily -for severe bladder pain and dysuria - cont pyridium scheduled TID -for urethral pain - lidocaine jelly prn -vulvar/vaginal pain - see below -plan 14 day course of IV/PO abx therapy -can likely change to PO amox tomorrow #severe vulvodynia - -ongoing for several months despite treatment for MRSA vaginitis, candidal vaginitis, +/- atrophic vaginitis (uncertain if & when the estrogen cream was started) -per staff no vaginal discharge -[place] [facility] no discharge seen on exam either -despite aggressive Rx of UTIs - including the current enterococcal UTI - she continues with the vaginal/vulvar burning sensation -Dr Orozco questions if some of her pain could be neurogenic in etiology -she does have known lumbar spinal stenosis per her chart -started low-dose gabapentin 100mg at bedtime; tolerated such last pm; no titration today -appreciate industrial energy engineer consultation -will check lumbar spine MRI to see if there is pathology that would explain her persistent symptoms -will also obtain MRI pelvis to rule out osteomyelitis of her pubic bones, etc which could also potentially explain some of her symptoms #atrophic vaginitis - -estrogen cream 3 days/week to vagina at HS #recent MRSA vaginitis - -received course of PO doxy for such per pharmacy records in late 07/2025 -per nursing staff, when cervantes was placed, no vaginal discharge noted -industrial energy engineer consult appreciates -vaginitis appears resolved #h/o urinary retention, CT a/p this admission with hydroureter and hydronephrosis - -suggestive of chronic incomplete bladder emptying / retention -can't rule out other causes -needs cysto - can be done as outpatient [place] [facility] -patient can f/u with [facility] (saw them in June 2025) or [facility] - will defer to patient & her preference #left ankle fx/ ambulatory dysfunction - patient with mechanical fall 08/24 resulting in admission to [facility] and left ankle fracture managed conservatively, currently nonweightbearing left LE. PT/OT Tylenol - schedule TID -Tramadol prn #COPD/chronic hypoxic respiratory failureuses 3L NC at baseline, stable. -continue home oxygen and inhalers -cxr obtained 09/18 - no pneumonia -for cough - tessalon 100mg TID #Rheumatoid arthritis -discontinued methotrexate recently due to recurrent infections - last dose 09/10 -follows with [facility] -no RA flare on exam -Mtx typically does not cause vaginal or vulvar issues directly #Hyperlipidemia -cont lipitor #hypothyroidism - -continue levothyroxine -TSH 2.4 #HTN -continue lisinopril #MARIO - -presenting Cr 1.5 -Cr today 0.9 -resolved VTE Prophylaxis - Lovenox 40mg SQ daily PT, OT while here needs ongoing rehab post-d/c --> to [place] after this hospitalization daughter updated at bedside 09/17 left message for pt's daughter this pm, 09/20 Admission and Anticipated Discharge Date Admission Date: September 15, 2025 Subjective vulvar/vaginal burning is better but not resolved she overall feels better denies LE weakness denies LE numbness however, she does state that ever since her falls she has had worsening low back pain she previously had L4-L5 fusion procedure in the past used to see Dr Salter [place] [facility] but it has been at least 12-15 months finally moved her bowels today no dyspnea at rest Review of Systems Review of Systems: gen - no fevers or chills cv - no chest pain, no orthopnea pulm - mild cough only GI - no nausea/emesis neuro/psych - slept ok last pm; does not feeling overly sedated today Physical Exam Physical Exam: gen - looks better today, NAD, lying comfortably in bed mouth - MMM neck - no JVD heart - RRR, s1 s2, no murmur lungs - CTA b/l, no rales or wheeze abd - soft, ND, BS+, no HSM, NT - cervantes in place; urine orange color from pyridium; but less debris/sediment in the cervantes tubing/bag ext - no edema, left ankle/foot in cast, pulses R foot 2+; cap refill < 2 sec left foot psych - a/o x 3 Results & Data Results & Data Vital Signs (Past 12 Hours) Vital Signs Temp Pulse Resp BP BP Pulse Ox O2 Del Method 09/20/25 14:00 Nasal Cannula 09/20/25 13:52 36.8 C 75 17 110/67 92 Nasal Cannula 09/20/25 12:27 36.9 C 82 20 111/68 91 Nasal Cannula 09/20/25 08:00 Nasal Cannula O2 Flow Rate 09/20/25 14:00 3 09/20/25 13:52 3 09/20/25 12:27 09/20/25 08:00 3 Laboratory Results Laboratory Results - last 24 hr 09/20/25 06:18 WBC 11.40 H RBC 2.97 L Hgb 10.3 L Hct 30.9 L MCV 104.0 H MCH 34.7 H MCHC 33.3 RDW Std Deviation 57.1 H RDW Coeff of [place] 15.2 H Plt Count 301 MPV 9.3 L Sodium 137 Potassium 4.7 Chloride 105 Carbon Dioxide 26 Anion Gap 6 BUN 25 H Creatinine 0.93 Est Cr Clr Drug Dosing 42.7 eGFR 60.98 BUN/Creatinine Ratio 26.9 H Glucose 92 Calcium 8.2 L TSH 2.424 Diagnostic Findings Microbiology 09/15/25 20:39 Urine,Clean Catch Urine Culture - Final Enterococcus faecalis 09/15/25 23:06 Blood Aerobic Blood Culture - Preliminary No growth in Aerobic bottle after 48 hours. 09/15/25 23:06 Blood Anaerobic Blood Culture - Preliminary No growth in Anaerobic bottle after 48 hours. 09/15/25 23:00 Blood Aerobic Blood Culture - Preliminary No growth in Aerobic bottle after 48 hours. 09/15/25 23:00 Blood Anaerobic Blood Culture - Preliminary No growth in Anaerobic bottle after 48 hours. PG Care Time/CCT Total # of Minutes Spent Total Time Spent with Patient: Total time spent is greater than 50% in coordination of care (as documented) at patient's floor/unit and/or counseling patient: Coding Level of Care Code 33726 SUB INP/OBS CARE 3/50MIN Diagnoses Recurrent UTI (urinary tract infection) N39.0 Sepsis A41.9 Vulvodynia N94.819 Atrophic vaginitis N95.2 Ankle fracture, left S82.892A Ambulatory dysfunction R26.2 Hydronephrosis N13.30 Hydroureter N13.4 Chronic hypoxic respiratory failure J96.11 Rheumatoid arthritis M06.9 COPD (chronic obstructive pulmonary disease) J44.9 Hypertension I10 Hypothyroidism E03.9
[2025-09-20] MEDS: ATORVASTATIN 20 MG TAB PO SCH (20:31)
[2025-09-20] MEDS: EUCERIN CR 120 GM JAR EXT SCH (22:23)
[2025-09-21 07:32] LABS: Hematocrit (blood only) 32.9 % (37.0-47.0); Hemoglobin 10.6 g/dl (12.0-16.0); Mean Corpuscular Hemoglobin 33.8 pg (25.0-34.0); Mean Corpuscular Volume 104.8 fL (80.0-100.0); Platelet Count 343 K/uL (130-400); RDW Standard Deviation 56.9 fL (36.4-46.3); Red Blood Count 3.14 M/uL (4.20-5.40); White Blood Count 12.34 K/ul (4.8-10.8)
[2025-09-21 07:46] LABS: Anion Gap 7.0 (3-11); Blood Urea Nitrogen 26.0 mg/dl (6-23); Calcium 8.4 mg/dl (8.6-10.3); Carbon Dioxide 26.0 mmol/L (21-32); Chloride 104.0 mmol/L (98-107); Creatinine Clr Calc Pharmacy 41.8 ml/min; Glucose 108.0 mg/dl (70-99(Fasting)); Potassium 5.0 mmol/L (3.5-5.1); Sodium 137.0 mmol/L (136-145)
--- NOTE | 2025-09-21 10:44 | Magnetic Resonance Report ---
MRI OF THE LUMBAR SPINE WITHOUT CONTRAST CLINICAL HISTORY: l-spine DDD; pelvic burning pain; radiculopathy? COMPARISON STUDY: Lumbar spine MRI January 09, 2023. TECHNIQUE: Utilizing a 1.5 Shea magnet and dedicated coil, multiplanar, multiecho imaging of the olga ar spine was performed without IV contrast. FINDINGS: For purposes of numbering on this exam, the L5-S1 disc space is assigned to axial image 27 of 30. An old mild L1 compression fractures unchanged since MRI of January 09, 2023.. Bilateral sacral ala fra ctures are better depicted on the pelvis MRI which will be reported separately. These are new since M RI of March 09, 2023. No intracranial character mass is present. The conus terminates at the L1-L2 le amber. There are stable postoperative findings following L4-L5 decompression, discectomy and fusion. 7 mm of anterolisthesis of L4 and L5 is unchanged. L1-2: There is minimal disc bulge and mild facet arthrosis. The central canal and neural foramen are patent. L2-3: There is mild disc bulge with moderate facet arthrosis and ligamentous hypertrophy. There is mi ld central canal stenosis. L3-4: There is severe facet arthrosis with ligamentous hypertrophy. There is disc bulge. Findings res ult in severe central canal stenosis, similar to previous MRI. Patent AP diameter of the canal is 3 m m. There is severe narrowing of both lateral recesses and moderate narrowing of both neural foramen. A 9 mm intracanalicular synovial cyst arising from the right facet joint is unchanged. L4-5: Posterior decompression is noted. There is no significant residual recurrent stenosis. There is mild bilateral neural foraminal stenosis, unchanged. L5-S1: Moderate disc space narrowing and facet arthrosis are present. The central canal is patent. Th ere is moderate to severe right and moderate left neural foraminal stenosis, similar to previous MRI. IMPRESSION: 1. Stable findings following L4-L5 decompression and fusion since MRI of 01/09/2023. 2. No change in severe central canal stenosis at L3-L4 since previous MRI, as described above. 3. Bilateral sacral ala insufficiency fractures, likely subacute. These are new since MRI of January 09, 2023. 4. No change in old mild L1 compression fracture. No acute lumbar spine fractures. ACT 112: Negative or not required by law. Electronically signed by: Talon Hsu M.D. 09/21/2025 10:42 AM
--- NOTE | 2025-09-21 11:03 | Magnetic Resonance Report ---
MRI OF THE PELVIS WITHOUT CONTRAST CLINICAL HISTORY: refractory pelvic burning pain; pelvic OM? COMPARISON STUDY: CT of the abdomen and pelvis September 15, 2025. TECHNIQUE: Utilizing a 1.5 Shea magnet and dedicated coil, multiplanar, multi echo imaging of the pe lvis was performed without intravenous contrast. FINDINGS: Please note that the lumbar spine MRI will be reported separately. Note is made of nondispl aced bilateral sacral ala fractures. No suspicious marrow replacement within the pelvis or hips is id entified. This exam is mildly compromised by motion artifact. There is moderate increased T2 signal w ithin the medial right pubic bone. This is nonspecific although probably traumatic. This may represen t a subacute fracture. No well-defined fracture line is identified. There is no evidence for avascula r necrosis of the femoral heads. A small amount of fluid within the pelvis is noted. There is a 2.4 c m cystic focus within the left adnexa. This is indeterminate but low suspicion. Endometrium is promin ent, measuring 7 mm in thickness bilaterally, this could represent fluid within the endometrial cavit y. Contents appear T1 hyperintense. Bladder wall thickening is again noted. There is gas within the b ladder as well as a Paz balloon. No definite evidence for acute osteomyelitis within the pelvis, sa tl, coccyx or hips. There is evidence for pelvic floor relaxation. IMPRESSION: 1. Nondisplaced bilateral sacral ala fractures. These are suggestive of subacute insufficiency fractu res. 2. Marrow edema within the medial right pubic bone. This is nonspecific although a healing subacute f racture is favored. Degenerative process could appear similar. An infectious process is considered mu ch less likely. 3. Redemonstration of bladder wall thickening which could be correlated with urinalysis. 4. Small amount of fluid within the pelvis. 5. Prominence of the endometrium. This could represent mild endometrial thickening or fluid within th e endometrial cavity and could be correlated with history of postmenopausal bleeding and pelvic ultra sound if indicated. 6. Evidence for pelvic floor relaxation. ACT 112: Negative or not required by law. Electronically signed by: Talon Hsu M.D. 09/21/2025 11:00 AM
[2025-09-21] MEDS: CALCITONIN SALMON NA 200 IU/AC 3.7 ML BTL SCH (12:53)
--- NOTE | 2025-09-21 17:48 | Hospitalist Progress Note ---
Date of Service September 21, 2025 Assessment & Plan (1) Recurrent UTI (urinary tract infection): (2) Sepsis: (3) Bilateral sacral insufficiency fracture with routine healing: (4) Pubic bone fracture: (5) Vulvodynia: (6) Atrophic vaginitis: (7) Ankle fracture, left: (8) Ambulatory dysfunction: (9) Hydronephrosis: (10) Hydroureter: (11) Chronic hypoxic respiratory failure: (12) Rheumatoid arthritis: (13) COPD (chronic obstructive pulmonary disease): (14) Hypertension: (15) Hypothyroidism: Plan Patient is an 85-year-old female with a past medical history of recurrent UTIs, rheumatoid arthritis on methotrexate, thyroid CA, HTN, HLD. Patient presented due to several months of dysuria and increasing urinary frequency found to have a positive UA for UTI and meeting SIRs criteria with leukocytosis, tachycardia, hypotension. Patient was admitted to [facility] from 08/24 to 08/28 after a mechanical fall resulting in a left ankle fracture, she has nonweightbearing status and went to [facility] and then to [facility] earlier this week. Family now wanting placement at [facility]. #recurrent UTI/Sepsis - -2nd to enterococcus, sens to ampicillin -stopped daptomycin --> changed to IV ampicillin 09/18 -today is day #7 of acceptable Rx (daptomycin and ampicillin) -for severe bladder spasm - cont vibregron daily -for severe bladder pain and dysuria - cont pyridium scheduled TID -for urethral pain - lidocaine jelly prn -vulvar/vaginal pain - see below -plan 14 day course of IV/PO abx therapy -can likely change to PO amox tomorrow - will leave amp 1 more day #severe vulvodynia - -ongoing for several months despite treatment for MRSA vaginitis, candidal vaginitis, +/- atrophic vaginitis (uncertain if & when the estrogen cream was started) -per staff no vaginal discharge -per Dr Orozco from [facility] Violin Restorer no discharge seen on exam either -despite aggressive Rx of UTIs - including the current enterococcal UTI - she continues with the vaginal/vulvar burning sensation -Dr Orozco questions if some of her pain could be neurogenic in etiology -she does have known lumbar spinal stenosis per her chart -started low-dose gabapentin 100mg at bedtime; tolerating -obtained L-spine MRI -- severe L3-L4 spinal stenosis, but unchanged from prior MRI -obtained pelvic MRI -- b/l sacral fractures, right pubic bone fracture (doubt osteomyelitis) -suspect the pelvic fractures are contributing heavily to her pain -could also have some neurogenic/neuropathic pain component if the sacral nerves are being compromised -discussed the pelvic & l-spine MRIs with patient & her daughter -patient seems to think she was told about pelvic fractures earlier this summer but I have not seen such documented in [facility]'s d/c summaries, notes, etc. -will attempt to get old imaging from the [facility] system -appreciate lead tinner consultation #b/l sacral fractures and right pubic bone fracture - -add calcitonin nasal spray daily -25-OH vit D level - 55 in November 2024 -should have outpatient DEXA if possible -see above discussion #atrophic vaginitis - -estrogen cream 3 days/week to vagina at HS -abnormal endometrium on MRI -- refer to [facility] french instructor post-d/c for work-up #recent MRSA vaginitis - -received course of PO doxy for such per pharmacy records in late 07/2025 -per nursing staff, when cervantes was placed, no vaginal discharge noted -lead tinner consult appreciates -vaginitis appears resolved #h/o urinary retention, CT a/p this admission with hydroureter and hydronephrosis - -suggestive of chronic incomplete bladder emptying / retention -can't rule out other causes -needs cysto - can be done as outpatient per [facility] Urology -patient can f/u with [facility] Urology (saw them in June 2025) or [facility] Urology - will defer to patient & her preference #left ankle fx/ ambulatory dysfunction - patient with mechanical fall 08/24 resulting in admission to [facility] and left ankle fracture managed conservatively, currently nonweightbearing left LE. PT/OT Tylenol - schedule TID -Tramadol prn #COPD/chronic hypoxic respiratory failureuses 3L NC at baseline, stable. -continue home oxygen and inhalers -cxr obtained 09/18 - no pneumonia -for cough - tessalon 100mg TID #Rheumatoid arthritis -discontinued methotrexate recently due to recurrent infections - last dose 09/10 -follows with [facility] Rheum -no RA flare on exam -Mtx typically does not cause vaginal or vulvar issues directly #Hyperlipidemia -cont lipitor #hypothyroidism - -continue levothyroxine -TSH 2.4 #HTN -continue lisinopril #MARIO - -presenting Cr 1.5 -Cr stable at 0.9 to 1 -MARIO resolved VTE Prophylaxis - Lovenox 40mg SQ daily PT, OT while here needs ongoing rehab post-d/c --> to [facility] after this hospitalization daughter updated at bedside 09/17 and again today, 09/21 left message for pt's daughter on cell phone 09/20 to [facility] tomorrow?? Admission and Anticipated Discharge Date Admission Date: September 15, 2025 Subjective patient lying in bed comfortably pelvic pain/vulvar & vaginal pain - decently controlled overall feels much better on general scale eating decently chronic cough unchanged denies any new complaints daughter & son-in-law were at bedside today Review of Systems Review of Systems: gen - no fevers or chills cv - no edema, no orthopnea pulm - cough/wheeze/congestion - chronic Physical Exam Physical Exam: gen - NAD, lying comfortably in bed; coughing at times mouth - MMM neck - no JVD heart - RRR, s1 s2, no murmur lungs - scattered wheeze, decreased BS bases, coughing at times abd - soft, ND, BS+, no HSM, NT - cervantes in place; urine orange color from pyridium; sediment/debris resolved ext - no edema, left ankle/foot in cast, pulses R foot 2+; cap refill < 2 sec left foot psych - a/o x 3 Results & Data Results & Data Vital Signs (Past 12 Hours) Vital Signs Temp Pulse Resp BP Pulse Ox O2 Del Method O2 Flow Rate 09/21/25 15:46 36.8 C 76 16 131/82 91 Nasal Cannula 3 09/21/25 08:30 Room Air 09/21/25 07:46 36.8 C 69 16 125/71 92 Nasal Cannula 3 Laboratory Results Laboratory Results - last 48 hr 09/21/25 09/22/25 07:13 09:01 WBC 12.34 H 10.91 H RBC 3.14 L 3.15 L Hgb 10.6 L 10.6 L Hct 32.9 L 32.5 L MCV 104.8 H 103.2 H MCH 33.8 33.7 MCHC 32.2 32.6 RDW Std Deviation 56.9 H 55.4 H RDW Coeff of [facility] 15.0 H 14.8 H Plt Count 343 337 MPV 8.6 L 8.7 L Immature Gran % (Auto) 0.6 Neut % (Auto) 73.4 Lymph % (Auto) 18.0 [place] % (Auto) 6.0 Eos % (Auto) 1.5 Baso % (Auto) 0.5 Neut # (Auto) 8.02 H Lymph # (Auto) 1.96 [place] # (Auto) 0.65 H Eos # (Auto) 0.16 Baso # (Auto) 0.05 Immature Gran # (Auto) 0.07 ESR 59 H Sodium 137 140 Potassium 5.0 5.0 Chloride 104 105 Carbon Dioxide 26 28 Anion Gap 7 7 BUN 26 H 25 H Creatinine 0.95 1.02 Est Cr Clr Drug Dosing 41.8 38.9 eGFR 59.45 54.59 BUN/Creatinine Ratio 27.4 H 24.5 H Glucose 108 H 116 H Calcium 8.4 L 8.1 L C-Reactive Protein 7.68 H Diagnostic Findings Lumbar Spine MRI 09/20/25 19:33 MRI OF THE LUMBAR SPINE WITHOUT CONTRAST CLINICAL HISTORY: l-spine DDD; pelvic burning pain; radiculopathy? COMPARISON STUDY: Lumbar spine MRI January 09, 2023. TECHNIQUE: Utilizing a 1.5 Shea magnet and dedicated coil, multiplanar, multiecho imaging of the lumbar spine was performed without IV contrast. FINDINGS: For purposes of numbering on this exam, the L5-S1 disc space is assigned to axial image 27 of 30. An old mild L1 compression fractures unchanged since MRI of January 09, 2023.. Bilateral sacral ala fractures are better depicted on the pelvis MRI which will be reported separately. These are new since MRI of March 09, 2023. No intracranial character mass is present. The conus terminates at the L1-L2 level. There are stable postoperative findings following L4-L5 decompression, discectomy and fusion. 7 mm of anterolisthesis of L4 and L5 is unchanged. L1-2: There is minimal disc bulge and mild facet arthrosis. The central canal and neural foramen are patent. L2-3: There is mild disc bulge with moderate facet arthrosis and ligamentous hypertrophy. There is mild central canal stenosis. L3-4: There is severe facet arthrosis with ligamentous hypertrophy. There is disc bulge. Findings result in severe central canal stenosis, similar to previous MRI. Patent AP diameter of the canal is 3 mm. There is severe narrowing of both lateral recesses and moderate narrowing of both neural foramen. A 9 mm intracanalicular synovial cyst arising from the right facet joint is unchanged. L4-5: Posterior decompression is noted. There is no significant residual recurrent stenosis. There is mild bilateral neural foraminal stenosis, unchanged. L5-S1: Moderate disc space narrowing and facet arthrosis are present. The central canal is patent. There is moderate to severe right and moderate left ne ural foraminal stenosis, similar to previous MRI. IMPRESSION: 1. Stable findings following L4-L5 decompression and fusion since MRI of 01/09/2023. 2. No change in severe central canal stenosis at L3-L4 since previous MRI, as described above. 3. Bilateral sacral ala insufficiency fractures, likely subacute. These are new since MRI of January 09, 2023. 4. No change in old mild L1 compression fracture. No acute lumbar spine fractures. ACT 112: Negative or not required by law. Electronically signed by: Talon Hsu M.D. 09/21/2025 10:42 AM Pelvis MRI 09/20/25 19:33 MRI OF THE PELVIS WITHOUT CONTRAST CLINICAL HISTORY: refractory pelvic burning pain; pelvic OM? COMPARISON STUDY: CT of the abdomen and pelvis September 15, 2025. TECHNIQUE: Utilizing a 1.5 Shea magnet and dedicated coil, multiplanar, multi echo imaging of the pelvis was performed without intravenous contrast. FINDINGS: Please note that the lumbar spine MRI will be reported separately. Note is made of nondisplaced bilateral sacral ala fractures. No suspicious marrow replacement within the pelvis or hips is identified. This exam is mildly compromised by motion artifact. There is moderate increased T2 signal within the medial right pubic bone. This is nonspecific although probably traumatic. This may represent a subacute fracture. No well-defined fracture line is identified. There is no evidence for avascular necrosis of the femoral heads. A small amount of fluid within the pelvis is noted. There is a 2.4 cm cystic focus within the left adnexa. This is indeterminate but low suspicion. Endometrium is prominent, measuring 7 mm in thickness bilaterally, this could represent fluid within the endometrial cavity. Contents appear T1 hyperintense. Bladder wall thickening is again noted. There is gas within the bladder as well as a Cervantes balloon. No definite evidence for acute osteomyelitis within the pelvis, sacrum, coccyx or hips. There is evidence for pelvic floor relaxation. IMPRESSION: 1. Nondisplaced bilateral sacral ala fractures. These are suggestive of subacute insufficiency fractures. 2. Marrow edema within the medial right pubic bone. This is nonspecific although a healing subacute fracture is favored. Degenerative process could appear similar. An infectious process is considered much less likely. 3. Redemonstration of bladder wall thickening which could be correlated with urinalysis. 4. Small amount of fluid within the pelvis. 5. Prominence of the endometrium. This could represent mild endometrial thickening or fluid within the endometrial cavity and could be correlated with history of postmenopausal bleeding and pelvic ultrasound if indicated. 6. Evidence for pelvic floor relaxation. ACT 112: Negative or not required by law. Electronically signed by: Talon Hsu M.D. 09/21/2025 11:00 AM PG Care Time/CCT Total # of Minutes Spent Total Time Spent with Patient: Total time spent is greater than 50% in coordination of care (as documented) at patient's floor/unit and/or counseling patient: Coding Level of Care Code 34221 SUB INP/OBS CARE 3/50MIN Diagnoses Recurrent UTI (urinary tract infection) N39.0 Sepsis A41.9 Bilateral sacral insufficiency fracture with routine healing M84.48XD Pubic bone fracture S32.509A Vulvodynia N94.819 Atrophic vaginitis N95.2 Ankle fracture, left S82.892A Ambulatory dysfunction R26.2 Hydronephrosis N13.30 Hydroureter N13.4 Chronic hypoxic respiratory failure J96.11 Rheumatoid arthritis M06.9 COPD (chronic obstructive pulmonary disease) J44.9 Hypertension I10 Hypothyroidism E03.9
[2025-09-21] MEDS: guaiFENesin 600 MG TABCR PO SCH (20:38)
[2025-09-21] MEDS: AMPICILLIN 1,000 MG in SODIUM CHLOR 0.9% MINI-B 100 ML IV SCH (20:38)
[2025-09-22 09:31] LABS: Hematocrit (blood only) 32.5 % (37.0-47.0); Hemoglobin 10.6 g/dl (12.0-16.0); Immature Granulocytes # (auto) 0.07 K/uL (0.01-0.20); Immature Granulocytes % (auto) 0.6 %; Mean Corpuscular Hemoglobin 33.7 pg (25.0-34.0); Mean Corpuscular Volume 103.2 fL (80.0-100.0); Platelet Count 337 K/uL (130-400); RDW Standard Deviation 55.4 fL (36.4-46.3); Red Blood Count 3.15 M/uL (4.20-5.40); White Blood Count 10.91 K/ul (4.8-10.8)
[2025-09-22 10:34] LABS: Anion Gap 7.0 (3-11); Calcium 8.1 mg/dl (8.6-10.3); Carbon Dioxide 28.0 mmol/L (21-32); Chloride 105.0 mmol/L (98-107); Potassium 5.0 mmol/L (3.5-5.1); Sodium 140.0 mmol/L (136-145)
[2025-09-22 10:39] LABS: Blood Urea Nitrogen 25.0 mg/dl (6-23); Creatinine Clr Calc Pharmacy 38.9 ml/min; Glucose 116.0 mg/dl (70-99(Fasting))
--- NOTE | 2025-09-22 14:01 | Hospitalist Progress Note ---
Date of Service September 22, 2025 Assessment & Plan (1) Recurrent UTI (urinary tract infection): (2) Sepsis: (3) Bilateral sacral insufficiency fracture with routine healing: (4) Pubic bone fracture: (5) Vulvodynia: (6) Atrophic vaginitis: (7) Ankle fracture, left: (8) Ambulatory dysfunction: (9) Hydronephrosis: (10) Hydroureter: (11) Chronic hypoxic respiratory failure: (12) Rheumatoid arthritis: (13) COPD (chronic obstructive pulmonary disease): (14) Hypertension: (15) Hypothyroidism: Plan Patient is an 85-year-old female with a past medical history of recurrent UTIs, rheumatoid arthritis on methotrexate, thyroid CA, HTN, HLD. Patient presented due to several months of dysuria and increasing urinary frequency found to have a positive UA for UTI and meeting SIRs criteria with leukocytosis, tachycardia, hypotension. Patient was admitted to [facility] from 08/24 to 08/28 after a mechanical fall resulting in a left ankle fracture, she has nonweightbearing status and went to [facility] and then to [facility] earlier this week. Family now wanting placement at [place]. #recurrent UTI/Sepsis - -2nd to enterococcus, sens to ampicillin -stopped daptomycin --> then changed to IV ampicillin 09/18 -today is day #8 of acceptable Rx (daptomycin and ampicillin) -will change to PO amox for the rest of her course -plan 14 days in total of IV/PO abx therapy -for severe bladder spasm - cont vibregron daily -for severe bladder pain and dysuria - cont pyridium scheduled TID -for urethral pain - lidocaine jelly prn -vulvar/vaginal pain - see below #severe vulvodynia - -ongoing for several months despite treatment for MRSA vaginitis, candidal vaginitis, +/- atrophic vaginitis (uncertain if & when the estrogen cream was started) -per staff no vaginal discharge -per Dr Orozco from [facility] Plant Ecologist no discharge seen on exam either -despite aggressive Rx of UTIs - including the current enterococcal UTI - she continues with the vaginal/vulvar burning sensation -Dr Orozco questions if some of her pain could be neurogenic in etiology -she does have known lumbar spinal stenosis per her chart -started low-dose gabapentin 100mg at bedtime; tolerating -obtained L-spine MRI -- severe L3-L4 spinal stenosis, but unchanged from prior MRI -obtained pelvic MRI -- b/l sacral fractures, right pubic bone fracture (doubt osteomyelitis) -suspect the pelvic fractures are contributing heavily to her pain -could also have some neurogenic/neuropathic pain component if the sacral nerves are being compromised -discussed the pelvic & l-spine MRIs with patient & her daughter -patient seems to think she was told about pelvic fractures earlier this summer but I have not seen such documented in [facility]'s d/c summaries, notes, etc. -I have imaging done of her pelvis from July at [facility] - NO mention of any sacral fractures, pubic Fx, etc. -appreciate head charger consultation #b/l sacral fractures and right pubic bone fracture - -cont calcitonin nasal spray daily -25-OH vit D level - 55 in November 2024 -should have outpatient DEXA if possible -see above discussion -for pain - -increase tramadol to 100mg prn for severe pain -tramadol 50mg prn mild/mod pain -gabapentin - increase to 200mg at HS for any neuropathic pain #atrophic vaginitis - -estrogen cream 3 days/week to vagina at HS -abnormal endometrium on MRI -- refer to [facility] automobile upholsterer apprentice post-d/c for work-up #recent MRSA vaginitis - -received course of PO doxy for such per pharmacy records in late 07/2025 -per nursing staff, when cervantes was placed, no vaginal discharge noted -head charger consult appreciates -vaginitis appears resolved #h/o urinary retention, CT a/p this admission with hydroureter and hydronephrosi s - -suggestive of chronic incomplete bladder emptying / retention -can't rule out other causes -needs cysto - can be done as outpatient per [facility] -patient can f/u with [facility] (saw them in June 2025) or [facility] - will defer to patient & her preference #left ankle fx/ ambulatory dysfunction - patient with mechanical fall 08/24 res ulting in admission to [facility] and left ankle fracture managed conservatively, currently nonweightbearing left LE. PT/OT Tylenol - schedule TID -Tramadol prn -has f/u with ortho in 1 week for such #COPD/chronic hypoxic respiratory failureuses 3L NC at baseline, stable. -continue home oxygen and inhalers -cxr obtained 09/18 - no pneumonia -for cough - tessalon 100mg TID #Rheumatoid arthritis -discontinued methotrexate recently due to recurrent infections - last dose 09/10 -follows with [facility] -no RA flare on exam -Mtx typically does not cause vaginal or vulvar issues directly #Hyperlipidemia -cont lipitor #hypothyroidism - -continue levothyroxine -TSH 2.4 #HTN -continue lisinopril #MARIO - -presenting Cr 1.5 -Cr stable at 0.9 -MARIO resolved VTE Prophylaxis - Lovenox 40mg SQ daily cont PT, OT needs ongoing rehab post-d/c --> to [place] after this hospitalization daughter updated at bedside 09/17 and 09/21 left message for pt's daughter on cell phone 09/20 updated daughter by phone today, 09/22 to [place] tomorrow if pain is reasonably controlled Admission and Anticipated Discharge Date Admission Date: September 15, 2025 Subjective no events overnight states the tramadol helps her vulvar/vaginal pains but doesn't relieve it completely had bowel movement this am still some bladder spasms at times in comparison to at admission feels "much better" overall does admit to some low-grade depression Review of Systems Review of Systems: gen - no fevers, no chills, eating well cv - no orthopnea pulm - chronic cough unchanged; no dyspnea GI - no N/V Physical Exam Physical Exam: gen - NAD, lying comfortably in bed, looks well mouth - MMM neck - no JVD heart - RRR, s1 s2, no murmur lungs - occasional wheeze, improved airation BS bases, no rales abd - soft, ND, BS+, no HSM, NT - cervantes in place; urine orange color from pyridium ext - no edema, left ankle/foot in cast, pulses R foot 2+; cap refill < 2 sec left foot psych - a/o x 3, restricted affect Results & Data Results & Data Vital Signs (Past 12 Hours) Vital Signs Temp Pulse Resp BP Pulse Ox O2 Del Method O2 Flow Rate 09/22/25 08:00 36.5 C 72 18 150/74 H 90 Nasal Cannula 3 Laboratory Results Laboratory Results 09/22/25 09:01 WBC 10.91 H RBC 3.15 L Hgb 10.6 L Hct 32.5 L MCV 103.2 H MCH 33.7 MCHC 32.6 RDW Std Deviation 55.4 H RDW Coeff of [facility] 14.8 H Plt Count 337 MPV 8.7 L Immature Gran % (Auto) 0.6 Neut % (Auto) 73.4 Lymph % (Auto) 18.0 [place] % (Auto) 6.0 Eos % (Auto) 1.5 Baso % (Auto) 0.5 Neut # (Auto) 8.02 H Lymph # (Auto) 1.96 [place] # (Auto) 0.65 H Eos # (Auto) 0.16 Baso # (Auto) 0.05 Immature Gran # (Auto) 0.07 ESR 59 H Sodium 140 Potassium 5.0 Chloride 105 Carbon Dioxide 28 Anion Gap 7 BUN 25 H Creatinine 1.02 Est Cr Clr Drug Dosing 38.9 eGFR 54.59 BUN/Creatinine Ratio 24.5 H Glucose 116 H Calcium 8.1 L C-Reactive Protein 7.68 H PG Care Time/CCT Total # of Minutes Spent Total Time Spent with Patient: Total time spent is greater than 50% in coordination of care (as documented) at patient's floor/unit and/or counseling patient: Coding Level of Care Code 44744 SUB INP/OBS CARE 3/50MIN Diagnoses Recurrent UTI (urinary tract infection) N39.0 Sepsis A41.9 Bilateral sacral insufficiency fracture with routine healing M84.48XD Pubic bone fracture S32.509A Vulvodynia N94.819 Atrophic vaginitis N95.2 Ankle fracture, left S82.892A Ambulatory dysfunction R26.2 Hydronephrosis N13.30 Hydroureter N13.4 Chronic hypoxic respiratory failure J96.11 Rheumatoid arthritis M06.9 COPD (chronic obstructive pulmonary disease) J44.9 Hypertension I10 Hypothyroidism E03.9
[2025-09-22] MEDS ORDERED: Nursing to Pharmacy Communication SCH (19:15)
[2025-09-22] MEDS: PHENAZOPYRIDINE HCL 200 MG TAB PO SCH (19:31)
[2025-09-22] MEDS: GABAPENTIN 100 MG CAP PO SCH (20:07)
[2025-09-22] MEDS: AMOXICILLIN 875 MG TAB PO SCH (20:07)
[2025-09-23 06:43] LABS: Anion Gap 7.0 (3-11); Blood Urea Nitrogen 25.0 mg/dl (6-23); Calcium 8.3 mg/dl (8.6-10.3); Carbon Dioxide 26.0 mmol/L (21-32); Chloride 104.0 mmol/L (98-107); Creatinine Clr Calc Pharmacy 40.9 ml/min; Glucose 88.0 mg/dl (70-99(Fasting)); Potassium 4.7 mmol/L (3.5-5.1); Sodium 137.0 mmol/L (136-145)
[2025-09-23 07:38] VITALS: O2SAT 92
[2025-09-23 10:23] VITALS: BP 112/70; PULSE 83; RESP 19; TEMP 97.7
--- NOTE | 2025-09-23 14:46 | Discharge Summary ---
Discharge Summary Date of Service September 23, 2025 Principal Dx & Hospital Course #1 = Principal Diagnosis (1) Recurrent UTI (urinary tract infection): (2) Sepsis: (3) Bilateral sacral insufficiency fracture with routine healing: (4) Pubic bone fracture: (5) Vulvodynia: (6) Atrophic vaginitis: (7) Ankle fracture, left: (8) Ambulatory dysfunction: (9) Hydronephrosis: (10) Hydroureter: (11) Chronic hypoxic respiratory failure: (12) Rheumatoid arthritis: (13) COPD (chronic obstructive pulmonary disease): (14) Hypertension: (15) Hypothyroidism: Plan Patient is an 85-year-old female with a past medical history of recurrent UTIs, rheumatoid arthritis on methotrexate, thyroid CA, HTN, HLD. Patient presented due to several months of dysuria and increasing urinary frequency found to have a positive UA for UTI and meeting SIRs criteria with leukocytosis, tachycardia, hypotension. Patient was admitted to [facility] from 08/24 to 08/28 after a mechanical fall resulting in a left ankle fracture, she has nonweightbearing status and went to [facility] and then to [facility] earlier this week. Family now wanting placement at [place]. #recurrent UTI/Sepsis - -2nd to enterococcus, sens to ampicillin -stopped daptomycin --> then changed to IV ampicillin 09/18 -today is day #8 of acceptable Rx (daptomycin and ampicillin) -will change to PO amox for the rest of her course -plan 14 days in total of IV/PO abx therapy -for severe bladder spasm - cont vibregron daily -for severe bladder pain and dysuria - cont pyridium scheduled TID -for urethral pain - lidocaine jelly prn -vulvar/vaginal pain - see below #severe vulvodynia - -ongoing for several months despite treatment for MRSA vaginitis, candidal vaginitis, +/- atrophic vaginitis (uncertain if & when the estrogen cream was started) -per staff no vaginal discharge -per Dr Orozco from [facility] Pasteurizer no discharge seen on exam either -despite aggressive Rx of UTIs - including the current enterococcal UTI - she continues with the vaginal/vulvar burning sensation -Dr Orozco questions if some of her pain could be neurogenic in etiology -she does have known lumbar spinal stenosis per her chart -started low-dose gabapentin 100mg at bedtime; tolerating -obtained L-spine MRI -- severe L3-L4 spinal stenosis, but unchanged from prior MRI -obtained pelvic MRI -- b/l sacral fractures, right pubic bone fracture (doubt osteomyelitis) -suspect the pelvic fractures are contributing heavily to her pain -could also have some neurogenic/neuropathic pain component if the sacral nerves are being compromised -discussed the pelvic & l-spine MRIs with patient & her daughter -patient seems to think she was told about pelvic fractures earlier this summer but I have not seen such documented in [facility]'s d/c summaries, notes, etc. -I have imaging done of her pelvis from July at [facility] - NO mention of any sacral fractures, pubic Fx, etc. -appreciate power plant technician consultation #b/l sacral fractures and right pubic bone fracture - -cont calcitonin nasal spray daily -25-OH vit D level - 55 in November 2024 -should have outpatient DEXA if possible -see above discussion -for pain - -increase tramadol to 100mg prn for severe pain -tramadol 50mg prn mild/mod pain -gabapentin - increase to 200mg at HS for any neuropathic pain #atrophic vaginitis - -estrogen cream 3 days/week to vagina at HS -abnormal endometrium on MRI -- refer to [facility] cloth pattern maker post-d/c for work-up #recent MRSA vaginitis - -received course of PO doxy for such per pharmacy records in late 07/2025 -per nursing staff, when cervantes was placed, no vaginal discharge noted -power plant technician consult appreciates -vaginitis appears resolved #h/o urinary retention, CT a/p this admission with hydroureter and hydronephrosis - -suggestive of chronic incomplete bladder emptying / retention -can't rule out other causes -needs cysto - can be done as outpatient per [facility] -patient can f/u with [facility] Urology (saw them in June 2025) or [facility] - will defer to patient & her preference #left ankle fx/ ambulatory dysfunction - patient with mechanical fall 08/24 resulting in admission to [facility] and left ankle fracture managed conservatively, currently nonweightbearing left LE. PT/OT Tylenol - schedule TID -Tramadol prn -has f/u with ortho in 1 week for such #COPD/chronic hypoxic respiratory failureuses 3L NC at baseline, stable. -continue home oxygen and inhalers -cxr obtained 09/18 - no pneumonia -for cough - tessalon 100mg TID #Rheumatoid arthritis -discontinued methotrexate recently due to recurrent infections - last dose 09/10 -follows with [facility] Rheum -no RA flare on exam -Mtx typically does not cause vaginal or vulvar issues directly #Hyperlipidemia -cont lipitor #hypothyroidism - -continue levothyroxine -TSH 2.4 #HTN -continue lisinopril #MARIO - -presenting Cr 1.5 -Cr stable at 0.9 -MARIO resolved VTE Prophylaxis - Lovenox 40mg SQ daily cont PT, OT needs ongoing rehab post-d/c --> to [place] after this hospitalization daughter updated at bedside 09/17 and 09/21 left message for pt's daughter on cell phone 09/20 updated daughter by phone today, 09/22 to [place] tomorrow if pain is reasonably controlled Admission HPI Per Admitting Provider Patient is an 85-year-old female with a past medical history of recurrent UTIs, rheumatoid arthritis on methotrexate, thyroid CA, HTN, HLD. Patient presented due to several months of dysuria and increasing urinary frequency found to have a positive UA for UTI and meeting SIRs criteria with leukocytosis, tachycardia, hypotension. Patient was admitted to [facility] from 08/24 to 08/28 after a mechanical fall resulting in a left ankle fracture, she has nonweightbearing status and went to [facility] and then to [facility] earlier this week. She still having difficulty with ambulating. Patient seen at bedside with her daughter and son present. She stated she has had burning with urination for 5 months as well as needing to go to the bathroom every 30 minutes to 1 hour 24/7 even throughout the night. This has been causing significant stress to her life and she lives at home with her son is concerned about this. Patient stated she is followed with her PCP, SHAKER PLATE OPERATOR, urology x 1 for this. Her SHAKER PLATE OPERATOR recently referred her to [facility] who did remove vaginal lesions and started her on a new cream 2x weekly which she has not yet began. 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 Patient stated that all of her symptoms started in April when she was started on methotrexate with her [facility] green building architect, Dr. Alexander. They stopped this for several weeks however restarted last Monday at 4 pills instead of 5 pills. Her daughter talked with the green building architect on Monday and he stated to discontinue the methotrexate and he will reeval her at her follow-up in November. Patient does endorse intermittent lower abdominal pain, nontender at time of exam, however with recurrent colitis as per the patient. She also endorses bilateral intermittent flank pain, no CVA tenderness at time of exam. Patient was admitted to [facility] from 08/24 to 08/28 after she tripped and had a mechanical fall resulting in a left ankle fracture which they managed conservatively and she is currently nonweightbearing status. She was discharged to [facility] She is unhappy with her care there and her family packed her things to move her out today. She was also treated for UTI with Rocephin x 1 and Omnicef x 3 days at [facility], urine cultures grew E. coli resistant to Bactrim. Patient also now complaining of right foot pain as she has hardware in her right foot has been getting all of her weight on this foot. Pain has been manageable with tramadol and Tylenol as scheduled. She is due for her evening medications and wishes to be DNR/DNI status. She uses 3L NC at baseline for COPD. Discharge Exam gen - NAD, lying comfortably in bed, looks well mouth - MMM neck - no JVD heart - RRR, s1 s2, no murmur lungs - occasional wheeze, improved airation BS bases, no rales abd - soft, ND, BS+, no HSM, NT - cervantes in place; urine orange color from pyridium ext - no edema, left ankle/foot in cast, pulses R foot 2+; cap refill < 2 sec left foot psych - a/o x 3, restricted affect Discharge Plan Discharge Items Patient Disposition: Transfer Residential Fac Reason For Visit: UTI, SEPSIS, AMBULATORY DYSFUNCTION Discharge Diagnosis: 1. enterococcus UTI - resolving 2. sepsis due to #1 - resolved 3. ambulatory dysfunction - multifactorial; bilateral subacute sacral fractures, subacute pubic fracture on right, left ankle fracture, lumbar spinal stenosis, vulvar/vaginal pain - all contributing 4. vulvodynia (vaginal/vulvar pain & burning) - due to pelvic fractures, possibly neurogenic pain, atrophic vaginitis, urethral/bladder pain as well 5. abnormal uterus on MRI pelvis 6. atrophic vaginitis 7. hydroureter & hydronephrosis with incomplete bladder emptying s/p cervantes insertion 09/17/25 8. chronic hypoxic respiratory failure on continuous oxygen - 3 liters 9. hypothyroidism 10. COPD 11. bladder spasm 12. rheumatoid arthritis 13. left ankle fracture 14. condyloma acuminata - s/p removal of such (fall, 2024) 15. recurrent UTIs Condition on Discharge: Fair Activity: Per Instructions section Weightbearing: Left non-weightbearing Non-emergency contact: Primary Care Provider and Surgeon Call non-emergency contact if: you have any medication questions, your symptoms worsen, your pain is not controlled, your pain is worsening, your pain is unusual for you, your pain is concerning for you and you have a fever Follow-up/Referrals: Raulito Ness [Other] ([facility]; follow up as scheduled on 10/02/25 for left ankle fracture ) Lala Orozco MD, FACOG [Physician] - (within 2 weeks; vulvodynia, abnl uterus on MRI) Aurelia King CRNP [Nurse Practitioner] - (2 weeks - follow-up of recurrent UTIs, hydroureter/hydronephrosis on CT scan, severe bladder retention) Janay Redding DO [Primary Care Provider] - Diet: Regular Addtl Attending Provider Instructions: 1. PT/OT - eval and Rx 2. LEFT LEG NON-WEIGHTBEARING STATUS 3. Cervantes catheter care; do not remove at this time; needs f/u with [facility] for cervantes management 4. oxygen via nasal cannula continuously - 3 liters 5. needs follow-up with [facility] AND [facility] within 2 weeks if possible 6. if there is counseling/mental health services consider consultation due to anxiety, sleep issues, ?low-grade depression 7. CBC, BMP, and CRP within 1 week; results to senior medical writer It was our pleasure caring for Ms Powell! -Norberto Tidwell, hospitalist Pending Studies at Discharge: No Stand-Alone Forms: My [facility] Skilled Items Patient informed of condition?: Yes DNR: Yes Discharge Level of Care: Skilled Communicable Disease: No Discharge Prognosis: Stable Lines: None Urinary Catheter: Yes (DO NOT REMOVE or attempt any voiding trial; placed 09/17/25) Medications and DC Order Prescriptions: New amoxicillin 875 mg Tablet 875 mg PO BID 7 Days Qty: 14 0RF enoxaparin [Lovenox] 40 mg/0.4 mL Syringe 40 mg subcut QAM 30 Days Qty: 12 0RF tramadol 50 mg Tablet 50 mg PO Q4H PRN (Reason: pain) Qty: 30 0RF Rx Instructions: for mild to moderate pain (pain on pain scale 1-7 / 10) gabapentin 100 mg Capsule 200 mg PO HS Qty: 60 0RF lidocaine HCl 2 % Jelly In Applicator 5 ml EXT Q4H PRN (Reason: vulvar/vaginal pain) Qty: 125 1RF sennosides [Senna Lax] 8.6 mg Tablet 17.2 mg PO QAM Qty: 60 0RF polyethylene glycol 3350 [Miralax] 17 gram Powder In Packet 17 g PO DAILY Qty: 30 0RF calcitonin (salmon) 200 unit/actuation [place],Non-Aerosol 1 spray NA DAILY Qty: 3.7 1RF Rx Instructions: alternate the nostrils day to day benzonatate 100 mg Capsule 100 mg PO TID PRN (Reason: cough) Qty: 30 0RF Gemtesa 75 mg Tablet 75 mg PO DAILY Qty: 30 0RF phenazopyridine [Pyridium] 100 mg tablet 100 mg PO TID 5 Days Qty: 15 0RF Premarin 0.625 mg/gram Cream 1 applic vaginal DIRECTED Qty: 30 5RF Rx Instructions: apply to vagina nightly x 10 days, then apply Monday/Monday at bedtime thereafter. Continued atorvastatin 20 mg tablet 20 mg PO HS Qty: 90 3RF cyanocobalamin (vitamin B-12) 1,000 mcg tablet extended release 500 mcg PO QAM cholecalciferol (vitamin D3) 25 mcg (1,000 unit) capsule 500 unit PO QAM Qty: 90 0RF aspirin 81 mg tablet 81 mg PO DAILY Patient Comments: CONFIRMED W/ PT AND ON [facility] DC SUMMARY 12/16/24 albuterol sulfate [Ventolin HFA] 90 mcg/actuation HFA aerosol inhaler 2 puff INH Q6H PRN (Reason: shortness of breath or wheezing) Qty: 1 3RF folic acid 1 mg tablet 1 mg PO DAILY Anoro Ellipta 62.5-25 mcg/actuation blister with device 1 inh inhalation DAILY Qty: 180 2RF Rx Instructions: 3 month supply. levothyroxine 125 mcg capsule 125 mcg PO DAILY melatonin 3 mg tablet 3 mg PO HS PRN (Reason: Sleep) multivitamin [Daily Multi-Vitamin] tablet 1 tab PO QAM Changed tramadol 50 mg tablet 100 mg PO Q8H PRN (Reason: Pain) Qty: 30 0RF Rx Instructions: for severe pain (pain on pain scale 8-10 / 10) acetaminophen 325 mg tablet 1,000 mg PO TID Qty: 100 0RF Held methotrexate sodium 2.5 mg tablet 10 mg PO WK Hold Instructions: HOLD as per her green building architect Rx Instructions: PER PT'S DAUGHTER "STOPPED THIS MED". imiquimod 5 % cream in packet 1 applic TOPICAL 2XWK Hold Instructions: hold for now Discontinued lisinopril 10 mg tablet 20 mg PO QPM Qty: 180 3RF clobetasol 0.05 % cream 1 g topical DAILY Qty: 30 0RF Rx Instructions: STARTED 09/08/25---Apply 1 gram to vulva daily for 2 weeks. lidocaine-prilocaine 2.5-2.5 % cream 1 applic topical DIRECTED PRN (Reason: Pain) Rx Instructions: APPLY TO VULVAR AREA Discharge Orders: Discharge Order (Routine); Ordered 09/23/25 Ordered By: Norberto Tidwell Admission Data Admit Date/Time: 09/15/25 23:45 Attending Provider: Norberto Tidwell Admit Provider: Alessio Burrell Primary Care Provider: Janay Redding Other Providers: Alessio Burrell; Osbaldo Helton; Osbaldo Helton; Lala Orozco Hospital Stay Data Consultations 09/15/25 22:52 ED Decision to Admit Stat 09/17/25 09:36 Consult Urology Routine 09/19/25 16:10 Consult Gynecology Routine Diagnostic Imagining Performed 09/15/25 23:26 CT abdomen pelvis wo/w con Stat 09/20/25 19:33 MR lumbar spine wo con Routine MR pelvis wo con Routine Pending Results Patient Have Any Pending Studies at Discharge: No Discharge Instructions Given to Patient (Per Discharging Provider) 1. PT/OT - eval and Rx 2. LEFT LEG NON-WEIGHTBEARING STATUS 3. Cervantes catheter care; do not remove at this time; needs f/u with [facility] for cervantes management 4. oxygen via nasal cannula continuously - 3 liters 5. needs follow-up with [facility] AND [facility] within 2 weeks if possible 6. if there is counseling/mental health services consider consultation due to anxiety, sleep issues, ?low-grade depression 7. CBC, BMP, and CRP within 1 week; results to senior medical writer It was our pleasure caring for Ms Powell! -Norberto Tidwell, hospitalist Coding Diagnoses Recurrent UTI (urinary tract infection) N39.0 Sepsis A41.9 Bilateral sacral insufficiency fracture with routine healing M84.48XD Pubic bone fracture S32.509A Vulvodynia N94.819 Atrophic vaginitis N95.2 Ankle fracture, left S82.892A Ambulatory dysfunction R26.2 Hydronephrosis N13.30 Hydroureter N13.4 Chronic hypoxic respiratory failure J96.11 Rheumatoid arthritis M06.9 COPD (chronic obstructive pulmonary disease) J44.9 Hypertension I10 Hypothyroidism E03.9
== END 2025-09-23 15:56 | DRG 871 ==
LOC: SUATTDRO → ED 19:53 → SUATTDRO 23:45 → EDINP 23:45 → 2W 09-16 15:34 → 3E 09-20 13:53